=== PATIENT | male | born 1975 | race Caucasian/White ===

== ENCOUNTER → 2019-02-17 16:54 | Outpatient (CLI) | payer OTHER, SELFPAY ==
--- NOTE | 2019-02-17 17:05 | ECG_ITS ---
APPROVED REPORT Exam: Resting ECG HR:75 bpm ECG Measurements Heart Rate [address] 150 P 76 QRSd 78 QRS 69 QT 384 T 58 QTc 428 <Conclusion> Normal sinus rhythm Normal ECG Electronically signed by : Carlos Kulkarni, 02/18/2019 10:34:50
--- NOTE | 2019-02-17 17:07 | XR_ITS ---
PROCEDURE: XR CHEST 2V CLINICAL HISTORY: Tobacco use, smoker COMPARISON: No exams were available for comparison FINDINGS: The cardiomediastinal silhouette and pulmonary vascularity are within normal limits. COPD. There is blunting of the CP angle on the right. No lobar consolidation or collapse. There is a small opacity overlying the medial aspect of the right 6th rib possibly due to summation artifact or even overlying sclerotic lesion of the rib. There is some scarring in the lung bases. No acute bony abnormalities. IMPRESSION: COPD with no acute finding. Minimal nodularity along the medial aspect of the right 6th rib which could be due to summation artifact, sclerotic lesion of the rib, or developing nodule. Consider follow-up chest x-ray to confirm stability Dictated by: Amador Solano MD 02/18/2019 03:54 Electronically signed by Amador Solano MD in [place] 02/18/2019 03:54
[2019-02-17 17:25] LABS: Basophils # 0.1 K/mm3 (0-0.2); Basophils % 1.2 % (0.1-2.0); Eosinophils # 0.1 K/mm3 (0.0-0.4); Eosinophils % 1.5 % (0.1-12.0); Hematocrit 43.4 % (42.0-52.0); Lymphocytes # 2.1 K/mm3 (0.7-4.5); Lymphocytes % 25.6 % (10-50); Mean Corpuscular HGB Conc 32.3 g/dL (31.8-35.4); Mean Corpuscular Hemoglobin 28.6 pg (27.0-31.2); Mean Corpuscular Volume 88.5 fl (80-94); Mean Platelet Volume 7.7 fl (7.4-10.4); Monocytes # 0.6 K/mm3 (0.1-1.0); Monocytes % 6.8 % (1.7-9.3); Neutrophils # 5.3 K/mm3 (1.8-7.8); Neutrophils % 64.9 % (37.0-80.0); Platelet Count 267 K/mm3 (142-424); Red Cell Distribution Width 13.4 % (11.5-17.5); White Blood Count 8.2 K/mm3 (4.8-10.8)
[2019-02-17 20:05] LABS: Alanine Aminotransferase 13 U/L (12-78); Albumin Level 3.4 gm/dL (3.4-5.0); Albumin/Globulin Ratio 0.9 (1.1-1.8); Alkaline Phosphatase 98 U/L (46-116); Anion Gap 11.4 mEq/L (5-15); Aspartate Amino Transferase 17 U/L (15-37); Bilirubin,Total 0.3 mg/dL (0.2-1.0); Blood Urea Nitrogen 9 mg/dL (7-18); Calcium 8.6 mg/dL (8.5-10.1); Carbon Dioxide 32 mmol/L (21.0-32.0); Chloride 101 mmol/L (98-107); Creatinine,Serum 1.05 mg/dL (0.70-1.30); Estimated Glomerular Filt Rate 76 ml/min (>60); GFR (African American) 92 ML/MIN (>60); Globulin 3.6 gm/dl (1.3-3.2); Glucose 55 mg/dL (74-106); Potassium 4.4 mmoL/L (3.5-5.1); Sodium 140 mmol/L (136-145)
[2019-03-06 09:07] LABS: Nicotine 26.6
[2019-03-06 09:08] LABS: Cotinine 477.5
== END ==
PROVIDERS: Visit Provider Podiatrist
DX: Z01.818 Encounter for other preprocedural examination (principal); S92.002A Unspecified fracture of left calcaneus, initial encounter for closed fracture
CPT/HCPCS: 36415; 71046; 80053; 80323; 85025; 93005

== ENCOUNTER 2022-06-01 10:14 | Emergency (ER) | payer MEDICARE, OTHER, SELFPAY ==
--- NOTE | 2022-06-01 10:38 | XR_ITS ---
FINAL REPORT CLINICAL HISTORY: fall FINDINGS: 2 views of the left forearm were obtained. There is an impacted fracture of the distal radial metaphysis. There is dorsal angulation of the distal fracture fragment. The joint spaces are intact. There is a small foreign body along the radial aspect of the wrist measuring 2 mm. IMPRESSION: Impacted distal radius fracture. Reviewed, Interpreted and Dictated by Ankush Foster III, MD Transcribed by Tim Perez Authenticated and . [facility]
--- NOTE | 2022-06-01 10:38 | XR_ITS ---
FINAL REPORT CLINICAL HISTORY: fall FINDINGS: Three views of the left wrist were obtained. There is an impacted fracture of the distal radial metaphysis. There is dorsal angulation of the distal fracture fragment. There is a nondisplaced fracture of the ulnar styloid process. The joint spaces are intact. There is a small foreign body along the radial aspect of the wrist measuring 2 mm. There is soft tissue swelling of the wrist. IMPRESSION: Distal radius and ulnar styloid process fractures. Reviewed, Interpreted and Dictated by Ankush Foster III, MD Transcribed by Tim Perez Authenticated and [facility]
--- NOTE | 2022-06-01 10:38 | XR_ITS ---
FINAL REPORT CLINICAL HISTORY: fall FINDINGS: Three views of the left hand were obtained. There is an impacted fracture of the distal radial metaphysis. There is dorsal angulation of the distal fracture fragment. Fracture of the ulnar styloid process. The joint spaces are intact. There is a small foreign body along the radial aspect of the wrist measuring 2 mm. There is soft tissue swelling about the wrist. IMPRESSION: Fractures of the distal radius and ulnar styloid process. Small foreign body along the radial aspect of the wrist. Reviewed, Interpreted and Dictated by Ankush Foster III, MD Transcribed by Tim Perez Authenticated and [facility]
--- NOTE | 2022-06-01 10:38 | XR_ITS ---
FINAL REPORT CLINICAL HISTORY: fall FINDINGS: LEFT ELBOW 3 views were obtained. There is no acute fracture or dislocation. There is no joint effusion. The joint spaces are intact. There is no soft tissue abnormality. IMPRESSION: No acute process. Reviewed, Interpreted and Dictated by Ankush Foster III, MD Transcribed by Tim Perez Authenticated and [facility]
[2022-06-01 11:23] VITALS: BP 138/65; PULSE 82; RESP 16; TEMP 36.6; O2SAT 97; BMI 21.5
--- NOTE | 2022-06-01 11:48 | EXP.UTC ---
Discharge Plan Disposition Patient Disposition: Home, Self-Care Condition: Good Prescriptions Prescriptions: New ibuprofen 600 mg tablet 600 mg PO Q6HP PRN (Reason: Moderate Pain) Qty: 20 0RF No Action tramadol 50 mg tablet 50 mg PO Q6H PRN (Reason: pain) Qty: 30 0RF fluticasone furoate-vilanterol 200-25 mcg/dose blister with device 2 puffs INHALATION DAILY Qty: 60 umeclidinium 62.5 mcg/actuation blister with device 2 puffs INHALATION DAILY Qty: 30 albuterol sulfate 90 mcg/actuation aerosol powdr breath activated 1 inh INHALATION Q4-6H PRN (Reason: copd) ibuprofen 800 mg tablet 800 mg PO BID Qty: 60 3RF methadone 5 mg tablet 75 mg PO DAILY naproxen 500 mg tablet 500 mg PO BID Referrals Follow up/Referrals: Foster Valenzuela DO [Staff Physician] - See instructions (Call office for appointment on Sat) Provider,Referral, MD [Primary Care Provider] - See instructions Activity Restrictions/Add. Instructions Additional Instructions/Restrictions: You was given Toradol injection in the [facility] today do not take any Ibuprofen or Motrin for the next 8 hours *RICE, Rest the extremity, Ice 15-20 minutes 3-4 times daily, Compress- wear the alberto wrap as discussed as much as possible to help reduce swelling and pain, Elevate the extremity when at rest *Orthoglass splint with Alberto wrap is for support and help control swelling, Be sure that is not to tight but not to loose either *Elevate when resting? *Ibuprofen 600 every 6-8 hours as needed for pain an inflammation. If need something more can take Tylenol in between doses of Ibuprofen to help Call Dr Samson office for appointment on Sat for further treatment and evaluation Make sure to prop area up on pillows above the level of the heart to help reduce swelling Clinical Impressions Clinical Impression: Distal radius fracture, left Qualifiers: Encounter type: initial encounter Fracture type: closed Fracture morphology: unspecified fracture morphology Qualified Code(s): S52.502A - Unspecified fracture of the lower end of left radius, initial encounter for closed fracture Instructions Patient Instructions: Wrist Fracture, How To Perform RICE (Rest, Ice, Compress, Elevate), Ibuprofen Discharge ED Provider: Deepali Carrion [facility] [place] HPI General Stated complaint: [id number], Left wrist pain Mode of Arrival: Ambulatory Source of Information: Patient Limitations: No Limitations Time Seen by Provider: 06/01/22 11:48 Description of Symptoms (Recalled from Triage Doc. by RN): pt here with c/o left arm swelling. pt had a fall last night and now has left arm awelling and pain. HEENT Symptoms (Recalled from RN notes): No Resp Symptoms (Recalled from RN notes): No Skin Symptoms (Recalled from RN notes): No MS Symptoms (Recalled from RN notes): Yes Functional Status (Recalled from RN notes): n/a History of Present Illness Provider Complaint: Patient states that he was outside last night when he slipped and fell and stuck out his left arm to catch himself from falling and felt a pop State that since then he has been having pain and swelling States he took some Ibuprofen last night and it did help a little with pain today he couldnt move his wrist without pain so he came in Related Data Home Medications Medication Instructions Recorded Confirmed albuterol sulfate 90 mcg/actuation 1 inh inhalation Q4-6H PRN copd 02/10/19 06/01/22 breath activated powder inhaler fluticasone furoate 200 2 puffs inhalation DAILY COPD #60 02/10/19 06/01/22 mcg-vilanterol 25 mcg/dose ea inhalation powder umeclidinium 62.5 mcg/actuation 2 puffs inhalation DAILY COPD #30 02/10/19 06/01/22 blister powder for inhalation ea methadone 5 mg tablet 75 mg PO DAILY Pain 02/17/19 06/01/22 naproxen 500 mg tablet 500 mg PO BID Pain 06/01/22 06/01/22 Previous Rx's Medication Instructions Recorded ibuprofen 800 mg tablet 800 mg PO BID pain, mild #60 tabs 02/10/19 vinicius
[2022-06-01 13:15] VITALS: BP 138/65; PULSE 82; RESP 16; TEMP 36.6
== END 2022-06-01 13:28 | disposition home or self-care (01) ==
PROVIDERS: Emergency Provider Nurse Practitioner
DX: S52.502A Unspecified fracture of the lower end of left radius, initial encounter for closed fracture (principal); W19.XXXA Unspecified fall, initial encounter
CPT/HCPCS: G0463; 29125; 73080; 73090; 73110; 73130; 99212

== ENCOUNTER 2024-07-08 14:35 | Emergency (ER) | payer OTHER, MEDICARE, SELFPAY ==
--- NOTE | 2024-07-08 14:37 | ED_ITS ---
Discharge Plan Disposition Patient Disposition: Home, Self-Care Condition: Good Prescriptions Prescriptions: New doxycycline hyclate 100 mg capsule 100 mg PO BID 10 Days Qty: 20 0RF prednisone 50 mg tablet 50 mg PO DAILY 5 Days Qty: 5 0RF No Action methadone 10 mg Tablet See Rx Instructions .ROUTE .COMPLEX Rx Instructions: unsure how much, given at the clinic albuterol sulfate 90 mcg/actuation HFA aerosol inhaler See Rx Instructions .ROUTE .COMPLEX Rx Instructions: as ordered Trelegy Ellipta 100-62.5-25 mcg blister with device See Rx Instructions .ROUTE .COMPLEX Rx Instructions: as ordered Referrals Follow up/Referrals: Provider,MD Arvind [Primary Care Provider] - See instructions Re Orr MD [Physician] - See instructions Activity Restrictions/Add. Instructions Additional Instructions/Restrictions: I have sent medication to your pharmacy. Please take your antibiotic till it is gone. I have referred you to pulmonology. Please call in the morning to make your appointment. If you have continued new or worsening signs or symptoms follow-up with your PCP return to the ER as needed. Clinical Impressions Clinical Impression: Influenza A, Acute exacerbation of chronic obstructive pulmonary disease Instructions Patient Instructions: DI for Chronic Obstructive Pulmonary Disease, DI for Influenza -- Adult Print Language Print Language: Luxembourger Discharge ED Provider: Mitul Tidwell General Adult HPI <JOVANNA Merrill - Last Filed: 07/08/24 18:12> General Chief complaint: Shortness of Breath/Dyspnea Stated complaint: body ache soa fever diarrhea Time Seen by Provider: 07/08/24 14:37 History of Present Illness HPI narrative: Patient presents for evaluation of dyspnea. Patient states that he has had 5 days of worsening dyspnea. He is a pack-a-day smoker and does have COPD but is not on any home oxygen. He does have a home nebulizer. He and his father are both sick about the same time and have similar symptoms. Denies any chest pain nausea vomiting diarrhea hemoptysis hematochezia melena hematemesis. He does report a cough that is nonproductive. Related Data Home Medications ?Medication ?Instructions ?Recorded ?Confirmed albuterol sulfate 90 mcg/actuation See Rx Instructions .Route .COMPLEX 07/08/24 07/08/24 aerosol inhaler fluticasone fur. 100 mcg-umeclid See Rx Instructions .Route .COMPLEX 07/08/24 07/08/24 62.5 mcg-vilant 25 mcg inhalat.powder (Trelegy Ellipta) methadone 10 mg tablet See Rx Instructions .Route .COMPLEX 07/08/24 07/08/24 Previous Rx's ?Medication ?Instructions ?Recorded doxycycline hyclate 100 mg capsule 100 mg PO BID 10 days #20 caps 07/08/24 prednisone 50 mg tablet 50 mg PO DAILY 5 days #5 tabs 07/08/24 Allergies Allergy/AdvReac Type Severity Reaction Status Date / Time No Known Allergies Allergy Verified 07/08/24 15:26 PFSH <JOVANNA Merrill - Last Filed: 07/08/24 18:12> [facility] Disclaimer: The information contained in this section may have been updated after the patient was seen, as this information can be updated by other users. Social History Smoking Status: Heavy tobacco smoker tobacco type: cigarettes packs per day: 1 second hand exposure: No alcohol intake: never substance use type: former substance user, opiates, painkillers and prescription drug current occupational status: other Travel in the last 8 weeks: None household members: significant other housing: house caffeine: Yes Have you lived/traveled outside US in past 30 days?: No Contact w/someone who lives/traveled outside US past 30 days?: No Exposure to someone with infectious disease in past 14 days?: No Do you have a fever (greater than 100.4 F or 38 C)?: No Have you tested positive for COVID-19: No Exposed to someone with COVID-19 in past 14 days?: No Do you have a sore throat?: No Do you have a cough?: Yes Do you have any weakness?: No Do you have any diarrhea?: Yes Are you experiencing any unusual bleeding?: No Do you have any muscle aches/pain?: No Do you have any abdominal pain?: No Are you experiencing loss of taste or smell?: No Other Medical History Have you received the Flu Vaccine for this season: Yes Have you received the Pneumonia Vaccine: No <JOVANNA Merrill - Last Filed: 07/08/24 18:12> ROS Obtained: Yes Systems reviewed as appropriate & no additional complaints except as documented Physical Exam <JOVANNA Merrill - Last Filed: 07/08/24 18:12> General General appearance: alert and in no apparent distress Respiratory Respiratory exam: Present wheezes and prolonged expiratory phase; Absent normal lung sounds bilaterally, respiratory distress or accessory muscle use Cardiovascular Cardiovascular exam: Present regular rate Neurological Exam Neurological exam: Present alert and oriented X3 Medical Decision Making <JOVANNA eMrrill - Last Filed: 07/08/24 18:12> Medical Records Medical records reviewed: Yes I reviewed the patient's medical records. Screening: Per USPSTF and CDC recommendations, given the prevalence of disease in our region, it is our hospital?s policy to screen for HIV and viral Hepatitis for all patients aged 18 and over and those with ongoing risk factors. Willie Inquiry Pt receiving controlled substance: No Vital Signs: 07/08/24 15:11 07/08/24 16:50 07/08/24 16:52 Temperature 98.1 F 98.1 F 98.1 F Temperature Source Oral Oral Pulse Rate 90 94 H Pulse Rate [Left] 83 Respiratory Rate 18 18 16 Blood Pressure 122/86 122/86 Blood Pressure [Right Arm] 134/90 Blood Pressure Mean [Right Arm] 104 Blood Pressure Source Automatic Cuff Blood Pressure Source [Right Arm] Automatic Cuff Blood Pressure Position Sitting Blood Pressure Position [Right Arm] Sitting 02 Sat by Pulse Oximetry 97 Oxygen Delivery Method Room Air Room Air Room Air Lab Data Lab results reviewed: Yes I reviewed the patient's lab results. Lab Results 07/08/24 14:41: SARS-CoV-2 (PCR) Not detected, Influenza A Untype (PCR) Detected A, Influenza Type B (PCR) Not detected 07/08/24 15:20: WBC 8.5, RBC 4.68, Hgb 13.9 L, Hct 40.0 L, MCV 85.5, MCH 29.7, MCHC 34.8, RDW 12.0, Plt Count 175, MPV 10.5 H, Neut % (Auto) 73.6, Lymph % (Auto) 18.9, Love % (Auto) 6.6, Eos % (Auto) 0.1, Baso % (Auto) 0.4, Neut # (Auto) 6.3, Lymph # (Auto) 1.6, Love # (Auto) 0.6, Eos # (Auto) 0.0, Baso # (Auto) 0.0, PT 10.3, INR 0.93, Sodium 137, Potassium 3.2 L, Chloride 94 L, C arbon Dioxide 38 H, Anion Gap 8.2, BUN 6 L, Creatinine 0.70, Estimated Creat Clear 128, Estimated GFR 119, Est GFR ( Amer) 144, Glucose 95, Calcium 8.5, Magnesium 2.2, Total Bilirubin 0.4, AST 48, ALT 29, Alkaline Phosphatase 85, Troponin I < 0.01, NT-Pro-B Natriuret Pep 224 H, Total Protein 7.4, Albumin 4.0, Globulin 3.4 H, Albumin/Globulin Ratio 1.2, Procalcitonin 0.250, HCV Ab AYDEN w/Rflx PCR Qn Negative, HIV Ag/Ab Combo Qual Negative 07/08/24 15:25: VBG pH 7.38, VBG pCO2 56.4 H, VBG pO2 27.9 L, VBG HCO3 32.8 H, V BG Total CO2 34.5 H, VBG O2 Saturation 59.8, VBG Base Excess 7.7 H, VBG Lactic Acid 0.9 07/08/24 15:20 07/08/24 15:20 Orders (Tests/Meds): ED MEDICATIONS Discontinued Medications Generic Name Dose Route Start Last Admin Trade Name Jonatanq PRN Reason Stop Dose Admin Albuterol/Ipratropium 3 ml 07/08/24 14:47 07/08/24 16:52 Ipratropium/Albuterol 3 Ml [facility] 07/08/24 14:48 Not Given ONCE ONE Albuterol/Ipratropium 6 ml 07/08/24 15:34 07/08/24 16:02 Ipratropium/Albuterol 3 Ml [facility] 07/08/24 15:35 6 ml ONCE ONE Administration Dexamethasone Sodium Phosphate 10 mg 07/08/24 14:47 07/08/24 16:01 Dexamethasone 4mg/Ml 5ml Mdv IV 07/08/24 14:48 10 mg ONCE ONE Administration Magnesium Sulfate 2 gm in 50 mls @ 50 mls/hr 07/08/24 15:08 07/08/24 15:58 Magnesium Sulfate 2gm/50ml Premix IV 07/08/24 16:07 50 mls/hr ONCE ONE Administration Ceftriaxone Sodium 2 gm/ 100 mls @ 200 mls/hr 07/08/24 15:34 07/08/24 15:54 Sodium Chloride IV 07/08/24 16:03 200 mls/hr ONCE ONE Administration Azithromycin 500 mg/ Sodium 250 mls @ 250 mls/hr 07/08/24 15:34 07/08/24 16:20 Chloride IV 07/08/24 15:35 250 mls/hr ONCE ONE Administration ORDERS Category Date Time Status Chest XR 2 view (NOT portable) [XR chest 2V] Stat Exams 07/08/24 14:47 Completed BNP [NT Pro Brain Natriuretic Pep.] Stat Lab 07/08/24 15:20 Completed CBC w/Auto Diff [Complete Blood Count Auto Diff] Stat Lab 07/08/24 15:20 Completed CMP [Comprehensive Metabolic Panel] Stat Lab 07/08/24 15:20 Completed HIV Combo Stat Lab 07/08/24 15:20 Completed Hepatitis C Ab Qual. W/ RFX Stat Lab 07/08/24 15:20 Completed INR [Prothrombin Time INR] Stat Lab 07/08/24 15:20 Completed Magnesium Stat Lab 07/08/24 15:20 Completed Procalcitonin Stat Lab 07/08/24 15:20 Completed Rapid PCR Covid and Flu A/B Stat Lab 07/08/24 14:41 Completed Trop I [Troponin I] Stat Lab 07/08/24 15:20 Completed Troponin I Q3H Lab 07/08/24 21:00 Ordered VBG [Venous Blood Gas] Stat RT 07/08/24 15:25 Completed Medical Decision Narrative: In summary patient is a 49-year-old male who presents to the emergency department for evaluation of dyspnea. Patient is initially normotensive at 134/90 with a pulse of 83 normal sinus rhythm on the bedside monitor breathing 18 times a minute satting at 97% on room air upon arrival, the temperature of 98.1. Physical exam is remarkable for pursed lip breathing and prolonged expiratory phase. Patient has no accessory muscle use and auscultation of breath sounds reveals end-expiratory wheezes in all 4 holguin but breath sounds heard to bases.. Differential diagnosis includes COPD exacerbation versus viral or bacterial respiratory tract infection. Initial workup will be conducted with hematologic labs respiratory swabs plain film chest x-ray. Initial interventions include Decadron DuoNeb IV magnesium continuous cardiac monitoring and pulse oximetry. Initial workup reviewed by me shows that his hematologic labs are nonactionable respiratory swab is positive for flu A and my informal interpretation of his plain film chest x-ray shows no acute processes and chronic changes associated with COPD prior to radiology read. Upon repeat evaluation patient had significant improvement in his respiratory subjective symptoms and is able to ambulate without dyspnea. Given this had an interactive discussion with the patient about being admitted versus discharge and patient is comfortable via patient directed decision making with going home with a prescription for doxycycline and steroids and strict return precautions. Given that I have sent a prescription to the patient's pharmacy and referred him to pulmonology for ongoing management and care of his COPD. He is out of the window to treat for influenza <Mitul Tidwell MD - Last Filed: 07/08/24 18:46> Vital Signs: 07/08/24 15:11 07/08/24 16:50 07/08/24 16:52 Temperature 98.1 F 98.1 F 98.1 F Temperature Source Oral Oral Pulse Rate 90 94 H Pulse Rate [Left] 83 Respiratory Rate 18 18 16 Blood Pressure 122/86 122/86 Blood Pressure [Right Arm] 134/90 Blood Pressure Mean [Right Arm] 104 Blood Pressure Source Automatic Cuff Blood Pressure Source [Right Arm] Automatic Cuff Blood Pressure Position Sitting Blood Pressure Position [Right Arm] Sitting 02 Sat by Pulse Oximetry 97 Oxygen Delivery Method Room Air Room Air Room Air Lab Data Lab Results 07/08/24 14:41: SARS-CoV-2 (PCR) Not detected, Influenza A Untype (PCR) Detected A, Influenza Type B (PCR) Not detected 07/08/24 15:20: WBC 8.5, RBC 4.68, Hgb 13.9 L, Hct 40.0 L, MCV 85.5, MCH 29.7, MCHC 34.8, RDW 12.0, Plt Count 175, MPV 10.5 H, Neut % (Auto) 73.6, Lymph % (Auto) 18.9, Love % (Auto) 6.6, Eos % (Auto) 0.1, Baso % (Auto) 0.4, Neut # (Auto) 6.3, Lymph # (Auto) 1.6, Love # (Auto) 0.6, Eos # (Auto) 0.0, Baso # (Auto) 0.0, PT 10.3, INR 0.93, Sodium 137, Potassium 3.2 L, Chloride 94 L, C arbon Dioxide 38 H, Anion Gap 8.2, BUN 6 L, Creatinine 0.70, Estimated Creat Clear 128, Estimated GFR 119, Est GFR ( Amer) 144, Glucose 95, Calcium 8.5, Magnesium 2.2, Total Bilirubin 0.4, AST 48, ALT 29, Alkaline Phosphatase 85, Troponin I < 0.01, NT-Pro-B Natriuret Pep 224 H, Total Protein 7.4, Albumin 4.0, Globulin 3.4 H, Albumin/Globulin Ratio 1.2, Procalcitonin 0.250, HCV Ab AYDEN w/Rflx PCR Qn Negative, HIV Ag/Ab Combo Qual Negative 07/08/24 15:25: VBG pH 7.38, VBG pCO2 56.4 H, VBG pO2 27.9 L, VBG HCO3 32.8 H, V BG Total CO2 34.5 H, VBG O2 Saturation 59.8, VBG Base Excess 7.7 H, VBG Lactic Acid 0.9 Orders (Tests/Meds): ED MEDICATIONS Discontinued Medications Generic Name Dose Route Start Last Admin Trade Name Freq PRN Reason Stop Dose Admin Albuterol/Ipratropium 3 ml 07/08/24 14:47 07/08/24 16:52 Ipratropium/Albuterol 3 Ml [facility] 07/08/24 14:48 Not Given ONCE ONE Albuterol/Ipratropium 6 ml 07/08/24 15:34 07/08/24 16:02 Ipratropium/Albuterol 3 Ml [facility] 07/08/24 15:35 6 ml ONCE ONE Administration Dexamethasone Sodium Phosphate 10 mg 07/08/24 14:47 07/08/24 16:01 Dexamethasone 4mg/Ml 5ml Mdv IV 07/08/24 14:48 10 mg ONCE ONE Administration Magnesium Sulfate 2 gm in 50 mls @ 50 mls/hr 07/08/24 15:08 07/08/24 15:58 Magnesium Sulfate 2gm/50ml Premix IV 07/08/24 16:07 50 mls/hr ONCE ONE Administration Ceftriaxone Sodium 2 gm/ 100 mls @ 200 mls/hr 07/08/24 15:34 07/08/24 15:54 Sodium Chloride IV 07/08/24 16:03 200 mls/hr ONCE ONE Administration Azithromycin 500 mg/ Sodium 250 mls @ 250 mls/hr 07/08/24 15:34 07/08/24 16:20 Chloride IV 07/08/24 15:35 250 mls/hr ONCE ONE Administration ORDERS Category Date Time Status Chest XR 2 view (NOT portable) [XR chest 2V] Stat Exams 07/08/24 14:47 Completed BNP [NT Pro Brain Natriuretic Pep.] Stat Lab 07/08/24 15:20 Completed CBC w/Auto Diff [Complete Blood Count Auto Diff] Stat Lab 07/08/24 15:20 Completed CMP [Comprehensive Metabolic Panel] Stat Lab 07/08/24 15:20 Completed HIV Combo Stat Lab 07/08/24 15:20 Completed Hepatitis C Ab Qual. W/ RFX Stat Lab 07/08/24 15:20 Completed INR [Prothrombin Time INR] Stat Lab 07/08/24 15:20 Completed Magnesium Stat Lab 07/08/24 15:20 Completed Procalcitonin Stat Lab 07/08/24 15:20 Completed Rapid PCR Covid and Flu A/B Stat Lab 07/08/24 14:41 Completed Trop I [Troponin I] Stat Lab 07/08/24 15:20 Completed Troponin I Q3H Lab 07/08/24 21:00 Ordered VBG [Venous Blood Gas] Stat RT 07/08/24 15:25 Completed Medical Decision Narrative: In summary patient is a 49-year-old male who presents to the emergency department for evaluation of dyspnea. Patient is initially normotensive at 134/90 with a pulse of 83 normal sinus rhythm on the bedside monitor breathing 18 times a minute satting at 97% on room air upon arrival, the temperature of 98.1. Physical exam is remarkable for pursed lip breathing and prolonged expiratory phase. Patient has no accessory muscle use and auscultation of breath sounds reveals end-expiratory wheezes in all 4 holguin but breath sounds heard to bases.. Differential diagnosis includes COPD exacerbation versus viral or bacterial respiratory tract infection. Initial workup will be conducted with hematologic labs respiratory swabs plain film chest x-ray. Initial interventions include Decadron DuoNeb IV magnesium continuous cardiac monitoring and pulse oximetry. Initial workup reviewed by me shows that his hematologic labs are nonactionable respiratory swab is positive for flu A and my informal interpretation of his plain film chest x-ray shows no acute processes and chronic changes associated with COPD prior to radiology read. Upon repeat evaluation patient had significant improvement in his respiratory subjective symptoms and is able to ambulate without dyspnea. Given this had an interactive discussion with the patient about being admitted versus discharge and patient is comfortable via patient directed decision making with going home with a prescription for doxycycline and steroids and strict return precautions. Given that I have sent a prescription to the patient's pharmacy and referred him to pulmonology for ongoing management and care of his COPD. He is out of the window to treat for influenza I was consulted by the [facility], and we discussed the complexity of the problems being addressed. I approved the treatment and management plan for this patient's care in the Emergency Department, thus performing a substantive portion of the medical decision making. Call your family doctor to establish care for this visit to the emergency department and schedule follow-up within 48 hours to ensure improvement. If you have any worsening of your condition or any other concerning signs or symptoms, return to the emergency department or your primary care doctor for further evaluation. Mitul Tidwell MD Critical Care <JOVANNA Merrill - Last Filed: 07/08/24 18:12> Critical Care Time Critical Care Time: Yes Attestation: On 07/08/24, the high probability of a clinically significant, sudden or life threatening deterioration of the following system(s) required my full and direct attention, intervention and personal management. The time I documented below is in addition to time spent performing reported procedures but includes the following listed in this critical care notation. Total Time Total Critical Care Time: 35
--- NOTE | 2024-07-08 14:47 | XR_ITS ---
FINAL REPORT CLINICAL HISTORY: Dyspnea COMPARISON: 02/17/2019 FINDINGS: 2 views of the chest were obtained . The heart is normal in size. The mediastinum is within normal limits. The lungs are hyperinflated. There is flattening of the hemidiaphragms. Chronic changes are seen at the lung bases. There is no pneumothorax. Osseous structures are unremarkable. IMPRESSION: No acute cardiopulmonary process. Reviewed, Interpreted and Dictated by Kalyan Kiser MD Transcribed by Sariah Guzman Authenticated and [facility]
[2024-07-08 14:50] LABS: Coronavirus 19, PCR Not Detected (NotDetected); Influenza B, PCR Not Detected (NotDetected)
[2024-07-08 15:11] VITALS: BP 134/90; PULSE 83; RESP 18; TEMP 36.7; O2SAT 97; BMI 22.9
--- NOTE | 2024-07-08 15:19 | PC.NURSE ---
ROUNDED ON THE PT. THE PT OVICES THAT HE DOES NOT NEED ANYTHING AT THIS TIME. CALL LIGHT IS WITHIN REACH OF THE PT.
--- NOTE | 2024-07-08 15:25 | PC.NURSE ---
I notified resp that there is a green top in the lab for a VBG
[2024-07-08 15:27] LABS: Lactate Venous 0.9 mmol/L (0.4-2.0); VBG Base Excess 7.7 mmol/L (-2.4-2.3); VBG HCO3 32.8 mmol/L (23-30); VBG Oxygen Saturation 59.8 % (50-70); VBG PCO2 56.4 mmol/L (35-51); VBG PH 7.38 mmol/L (7.31-7.41); VBG PO2 27.9 mmol/L (28-40); VBG Total CO2 34.5 mmol/L (23-27)
[2024-07-08 15:30] LABS: Basophils % 0.4 % (0.1-2.0); Eosinophils % 0.1 % (0.1-12.0); Hemoglobin 13.9 g/dL (14.1-18.0); Lymphocytes # 1.6 K/mm3 (0.7-4.5); Lymphocytes % 18.9 % (10-50); Mean Corpuscular HGB Conc 34.8 g/dL (31.8-35.4); Mean Corpuscular Hemoglobin 29.7 pg (27.0-31.2); Mean Corpuscular Volume 85.5 fl (80-94); Mean Platelet Volume 10.5 fl (7.4-10.4); Monocytes # 0.6 K/mm3 (0.1-1.0); Monocytes % 6.6 % (1.7-9.3); Neutrophils # 6.3 K/mm3 (1.8-7.8); Neutrophils % 73.6 % (37.0-80.0); Platelet Count 175 K/mm3 (142-424); Red Blood Count 4.68 M/mm3 (4.60-6.20); White Blood Count 8.5 K/mm3 (4.8-10.8)
[2024-07-08 15:46] LABS: INR 0.93 (0.9-1.1); Prothrombin Time 10.3 seconds (9.2-12.1)
[2024-07-08 15:52] LABS: Alanine Aminotransferase 29 U/L (12-78); Albumin/Globulin Ratio 1.2 (1.1-1.8); Alkaline Phosphatase 85 U/L (38-126); Anion Gap 8.2 mEq/L (5-15); Aspartate Amino Transferase 48 U/L (17-59); Bilirubin,Total 0.4 mg/dl (0.2-1.3); Blood Urea Nitrogen 6 mg/dl (9-20); Calcium 8.5 mg/dl (8.4-10.2); Carbon Dioxide 38 mmol/L (22.0-30.0); Chloride 94 mmol/L (98-107); Creatinine Clearance Estimated 128 mL/min (50-200); Estimated Glomerular Filt Rate 119 ml/min (>60); GFR (African American) 144 ML/MIN (>60); Globulin 3.4 g/dL (1.3-3.2); Glucose 95 mg/dl (74-100); Magnesium 2.2 mg/dl (1.6-2.3); Potassium 3.2 mmoL/L (3.5-5.1); Sodium 137 mmol/L (136-145); Total Protein,Serum 7.4 g/dl (6.3-8.2)
[2024-07-08 15:54] LABS: Influenza A, PCR Detected (NotDetected)
[2024-07-08] MEDS: CEFTRIAXONE SODIUM 2 GM in 0.9 % SODIUM CHLORIDE 100 ML IV (15:54)
[2024-07-08] MEDS: MAGNESIUM SULFATE IN WATER 2 GM/50 ML PIGGYBACK IV (15:58)
[2024-07-08] MEDS: DEXAMETHASONE 4MG/ML 5ML MDV 10 MG IV (16:01)
[2024-07-08] MEDS: IPRATROPIUM/ALBUTEROL 3 ML NEB 6 ML IH (16:02)
[2024-07-08 16:04] LABS: NT Pro Brain Natriuretic Pep. 224 pg/mL (0-125); Troponin I < 0.01 ng/ml (0.00-0.034)
[2024-07-08] MEDS: AZITHROMYCIN 500 MG in 0.9 % SODIUM CHLORIDE 250 ML 250 MG IV (16:20)
[2024-07-08 16:50] VITALS: BP 122/86; PULSE 90; RESP 18; TEMP 36.7; O2SAT 95
[2024-07-08 16:52] VITALS: BP 122/86; PULSE 94; RESP 16; TEMP 36.7; O2SAT 95
[2024-07-08 17:03] LABS: HIV Combo NEGATIVE (Negative)
[2024-07-08 17:12] LABS: Hepatitis C Ab Qual. W/ RFX NEGATIVE (Negative)
== END 2024-07-08 16:54 | disposition home or self-care (01) ==
PROVIDERS: Physician Assistant; Emergency Provider Emergency Medicine
DX: J10.1 Influenza due to other identified influenza virus with other respiratory manifestations (principal); J44.1 Chronic obstructive pulmonary disease with (acute) exacerbation; R50.9 Fever, unspecified; R06.00 Dyspnea, unspecified; R05.9 Cough, unspecified; Z72.0 Tobacco use
CPT/HCPCS: 71046; 80053; 82803; 83735; 83880; 84145; 84484; 85025; 85610; 86803; 87389; 87636; 96365; 96367; 96374; 99291; J0456; J0696; J1100; J3475; J7050; J7620

== ENCOUNTER 2024-11-15 12:32 | Observation (INO) | payer MEDICARE, SELFPAY ==
[2024-11-15] VITALS (10 sets, daily range): BP systolic 93–132; BP diastolic 63–106; PULSE 80–110; RESP 14–20; TEMP 36.8–37.1; O2SAT 90–100; BMI 18.6; BMI 19.0
--- NOTE | 2024-11-15 12:38 | XR_ITS ---
PROCEDURE INFORMATION: Exam: XR Chest Exam date and time: 11/15/2024 12:47 PM Age: 49 years old Clinical indication: Shortness of breath; Additional info: SOA, cough TECHNIQUE: Imaging protocol: Radiologic exam of the chest. Views: 1 view. COMPARISON: CR XR CHEST 2V 07/08/2024 2:46 PM FINDINGS: Lungs: There is COPD with upper lobe emphysematous changes redemonstrated. No acute infiltrates overt CHF. Pleural spaces: Unremarkable. No pleural effusion. No pneumothorax. Heart/Mediastinum: Unremarkable. No cardiomegaly. Bones/joints: No acute bony abnormalities detected. IMPRESSION: COPD. No active disease.
--- OUTSIDE RECORDS SUMMARY | 2024-11-15 12:39 | XMS_ITS | Encounter Summary ---
Author Organization Healthcare Address [address] [place] [address] Care Team Providers Care Web Development Instructor Name Role Phone Pcp, No Primary Care Provider Unavailabl e Reason for Visit * Reason Onset Date Comments Medication Assistance Program 09/03/2024 Encounter Details Date Type Department Care Team (Late st Contact Info) Description 09/03/2024 Telephone [facility] [address] [place] [address] Feli Wong, PharmD Medication Assistance Program Social History Tobacco Use Types Packs/Day Years Used Date Smoking Tobacco: Every Day Cigarettes Smokeless Tobacco: Never Alcohol Use Standard Drinks/Week Comments Not Currently 0 (1 standard drink = 0.6 oz pur e alcohol) PHQ-2 Answer Date Recorded Patient Health Questionnaire-2 Score 0 08/25/2024 PHQ-9 Answer Date Recorded Patient Health Questionnaire-9 Score 0 08/25/2024 Sex and Gender Information Value Date Recorded Sex Assigned at Not on file Legal Sex Male 8:15 PM EDT Gender Identity Not on file Sexual Orientation Not on file documented as of this encounter Miscellaneous Notes * Clinician Note - Feli Wong, PharmD - 09/03/2024 3:33 PM EDT [facility] Request Medication(s): Spiriva Respimat and Advair HFA Copay Amount: $390.10 and $47 Date to be Shipped/Dispensed: 09/09/2024 Employee Name Feli Wong PharmD Filling Pharmacy: [facility] [address] [place] [phone] Preferred Application Method: MyChart I attest that there are no copay cards, grants or other copay assistance options available for thispatient. documented in this encounter Plan of Treatment Upcoming Encounters Date Type Department Care Team (Late st Contact Info) Description 12/01/2024 12:50 PM EDT Appointment [facility] [address] [place] [address] 12/01/2024 1:40 PM EDT Office Visit [facility] [address] [place] [address] Yoana Stuart S, HISTORY INSTRUCTOR [address] [place] [address] documented as of this encounter Visit Diagnoses Not on filedocumented in this encounter Additional Health Concerns Assessment Noted Time PHQ-9 Depression Total Score: 0 08/26/19 12:28 PM EDT A fall risk assessment has been complete d for the patient 08/25/2024 12:30 PM EDT A Body Mass Index follow-up plan has been documented for the patient 08/25/2024 1:33 PM EDT documented as of this encounter Care Teams Web Development Instructor Relationship Specialty Start Date End Date Pcp, [facility] [address] [place] [address] PCP - General Family Medicine 06/21/22 documented as of this encounter
--- OUTSIDE RECORDS SUMMARY | 2024-11-15 12:39 | XMS_ITS | Clinical Summary ---
Author Organization [facility] Address [address] [place] [address] Care Team Providers Care Cell Stripper Final Name Role Phone Pcp, No Primary Care Provider Unavailabl e Allergies No known active allergies Medications Ventolin HFA 108 (90 Base) MCG/ACT inhaler 3 Active ibuprofen 600 MG tablet TAKE 1 TABLET BY MOUTH EVERY 6 HOURS NEEDED FOR MODERATE PAIN 2 Active fluticasone-salm eterol (Advair HFA) 230-21 MCG/ACT inhalerIndicatio ns:Asthma-COPD overlap syndrome (CMS/HCC) Inhale 2 puffs 2 (two) times a day. Rinse mouth with water after use to reduce aftertaste and incidence of candidiasis. Do not swallow. Use with spacer 12 g 11 5 Active Tiotropium [place] Monohydrate (Spiriva Respimat) 2.5 MCG/ACT inhalerIndicatio ns:Asthma-COPD overlap syndrome (CMS/HCC) Inhale 2 puffs daily. 4 g 11 5 Active Active Problems No known active problems Encounters Date Type Department Care Team Description 09/03/2024 Telephone [facility] [address] [place] [address] Feli Wong, PharmD Medication Assistance Program 08/26/2024 Refill [facility] [address], [address] [place] [address] Rodrick Ross, PharmD Asthma-COPD overlap syndrome (CMS/HCC) (Primary Dx) 08/25/2024 12:40 PM EDT Office Visit [facility] [address], [address] [place] [address] Yoana Stuart APRN Asthma-COPD overlap syndrome (CMS/HCC) (Primary Dx); Chronic obstructive pulmonary disease, unspecified COPD type (CMS/HCC); Dyspnea on exertion; Current smoker; History of substance abuse (CMS/HCC) 08/25/2024 11:00 AM EDT Ancillary Procedure [facility] [address], [address] [place] [phone] Chronic obstructive pulmonary disease, unspecified COPD type (CMS/HCC) 08/25/2024 Telephone [facility] 0 [facility], [address] [place] [phone] Yoana Stuart APRN Prior-authorization /insurance Verification; Financial Assistance 08/25/2024 Travel from Last 3 Months Immunizations Immunization Administration Dates Next Due Influenza, injectable, quadrivalent, preservativ e free 02/29/2020,06/13/2016 Pneumococcal Conjugate PCV 13 06/14/2016 Family History Medical History Relation Name Comments Cancer Brother Relation Name Status Comments Brother Social History Tobacco Use Types Packs/Day Years Used Date Smoking Tobacco: Every Day Cigarettes Smokeless Tobacco: Never Tobacco Cessation:Ready to Q uit: Yes; Counseling Given: Yes Alcohol Use Standard Drinks/Week Comments Not Currently [...] on file Sexual Orientation Not on file Last Filed Vital Signs Vital Sign Reading Time Taken Comments Blood Pressure 119/77 08/25/2024 12:28 PM EDT Pulse 78 08/25/2024 12:28 PM EDT Temperature 36.9 C (98.4 F) 08/25/2024 12:28 PM EDT Respiratory Rate 16 08/25/2024 12:28 PM EDT Oxygen Saturation 97% 08/25/2024 12:28 PM EDT RA Inhaled Oxygen Concentration - - Weight 64 kg (141 lb 1.5 oz) 08/25/2024 12:28 PM EDT Height 177.8 cm (5' 10 ) 08/25/2024 12:28 PM EDT Body Mass Index 20.24 08/25/2024 12:28 PM EDT Plan of Treatment Upcoming Encounters Date Type Department Care Team (Late st Contact Info) Description 12/01/2024 12:50 PM EDT Appointment [facility] [address] [place] [address] 12/01/2024 1:40 PM EDT Office Visit [facility] [address], [address] [place] [address] Yoana Stuart S, REGIONAL CLINICAL RESEARCH ASSOCIATE [address] [place] [address] Health Maintenance Due Date Last Done Comments [facility]-HIV Screening 1973 [facility]-Hepatitis C Screening 1973 [facility]-Medicare Annual Wellness (AWV) 1973 [facility]-/Child/Adol SDOH Screenings 1973 [facility]- SDOH Screenings 1991 [facility]-Adult SDOH Screenings 1991 [facility]-DTaP,Tdap,and Td Vaccine s (1 - Tdap) 1992 [facility]-Hepatitis B Vaccines (1 of 3 - 19+ 3-dose series) 1992 [facility]-Pneumococcal Vaccine: 50 + Years (2 of 2 - PPSV23) 08/09/2016 06/14/2016 CT Colonography 2018 Colonoscopy 2018 FIT-DNA 2018 FIT 2018 FOBT 2018 Sigmoidoscopy 2018 [facility]-Colorectal Cancer Screening 2018 [facility]-Zoster Vaccines (1 of 2) 2023 TRP-GZVUN-17 Vaccine (1 - season) 2024 [facility]-Influenza Vaccine (Seaso n Ended) 2025 02/29/2020, 06/13/2016 [facility]-Depression Screening 08/25/2025 025, 08/25/2024 HPV Vaccines Aged Out No longer eligi ble based on patient's age to complete this topic [facility]-HIB Vaccines Aged Out No longer e ligible based on patient's age to complete this topic [facility]-Hepatitis A Vaccines Aged Out No longer eligible based on patient's age to complete this topic [facility]-IPV Vaccines Aged Out No longer e ligible based on patient's age to complete this topic [facility]-Rotavirus Vaccines Aged Out No lo nger eligible based on patient's age to complete this topic Procedures Procedure Name Priority Date/Time Associated Diagnosis Comments CBC WITH AUTO DIFFERENTIAL Routine 08/25/2024 1:51 PM EDT Asthma-COPD overlap syndrome (CMS/HCC) IMMUNOGLOBULIN E Routine 08/25/2024 1:51 PM EDT Asthma-COPD overlap syndrome (CMS/HCC) VITAMIN D 25 HYDROXY Routine 08/25/2024 1:51 PM EDT Asthma-COPD overlap syndrome (CMS/HCC) ALPHA 1 ANTITRYPSIN PHENOTYPE(INCLUDES CBXJN-6-IZCIKHDGHBO)SO (SO) Routine 08/25/2024 1:51 PM EDT Asthma-COPD overlap syndrome (CMS/HCC) COMPREHENSIVE METABOLIC PANEL, PLASMA Routine 08/25/2024 1:51 PM EDT Asthma-COPD overlap syndrome (CMS/HCC) HC DIFFUSING CAPACITY - CARBON MONOXIDE DIFFUSING CAPACITY Routine 08/25/2024 11:55 AM EDT Chronic obstructive pulmonary disease, unspecified COPD type (CMS/HCC) from Last 3 Months Results * (ABNORMAL) Epuln-8-Rzcpguwgkrv Enzyme Conc and Phenotype (SO) (08/25/2024 1:51 PM EDT) ALPHA 1 ANTITRYPSIN 208(H) 90 - 200 mg/dL 08/29/2024 8:20 AM EDT [facility] A1A Phenotype M1M1 08/29/2024 8:20 AM EDT [facility] ([place]) Blood Venous blood specimen / Unknown Venipuncture / Unknown 08/25/2024 1:51 PM EDT 08/25/2024 1:51 PM EDT Narrative [facility]) - 08/29/2024 8:20 AM EDT To convert to umol/L, multiply mg/dL by 0.185 The patient appears to have a normal phenotype. All M alleles (including subtypes M1, M2, and M3) produce normal serum concentrations of zmona-2-ybhcwrbn inhibitor and are not associated with clinical disease. Caution in interpretation is advised if the patient has been transfused within the previous 21 days. Performed By: [facility] [address] [place] [address] Form Setter/Driver: Hipolito Reyes MD, PhD CLIA Number: [id number] Yoana Stuart APRN LAB BLOOD ORDERABLES Anna l Result [facility] [place] [address] [place] [address] * Vitamin D 25 Hydroxy (08/25/2024 1:51 PM EDT) Vitamin D 25 Hydroxy 21.5 20.0 - 80.0 ng/mL 08/25/2024 4:50 PM EDT [facility] Blood Venous blood specimen / Unknown Venipuncture / Unknown 08/25/2024 1:51 PM EDT 08/25/2024 1:51 PM EDT Narrative [facility] - 08/25/2024 4:50 PM EDT Testing performed on Villegas Deblocker, standardized against NIST SRM 2972. When testing samples from patients whose predominant form of vitamin D is vitamin D2, such as patients receiving vitamin D2 supplementation, results that are subtherapeutic should be confirmed with another method, such as LC-MS/MS, before being used for patient management. Vitamin D, 25-Hydroxy reference range, age 18 years and up: Deficiency: <12 ng/mL Insufficiency: 12 to 19 ng/mL Sufficiency: 20 to 80 ng/mL Possible toxicity: >100 ng/mL us Yoana Stuart REGIONAL CLINICAL RESEARCH ASSOCIATE LAB BLOOD ORDERABLES Anna mo Result [facility] [address] [place] [address] * CBC and differential (08/25/2024 1:51 PM EDT) WBC Count 8.10 3.70 - 10.30 10*3/uL LAB HEMATOLOGY METHOD 08/25/2024 3:06 PM EDT [facility] RBC Count 4.99 4.60 - 6.10 10*6/uL LAB HEMATOLOGY METHOD 08/25/2024 3:06 PM EDT [facility] HGB 14.7 13.7 - 17.5 g/dL LAB HEMATOLOGY METHOD 08/25/2024 3:06 PM EDT [facility] HCT 45.0 40.0 - 51.0 % LAB HEMATOLOGY METHOD 08/25/2024 3:06 PM EDT [facility] Platelet Count 214 155 - 369 10*3/uL LAB HEMATOLOGY METHOD 08/25/2024 3:06 PM EDT [facility] MCV 90 79 - 98 fL LAB HEMATOLOGY METHOD 08/25/2024 3:06 PM EDT [facility] MCH 29.5 26.0 - 32.0 pg LAB HEMATOLOGY METHOD 08/25/2024 3:06 PM EDT [facility] MCHC 32.7 30.7 - 35.5 g/dL LAB HEMATOLOGY METHOD 08/25/2024 3:06 PM EDT [facility] RDW 13.2 11.5 - 14.5 % LAB HEMATOLOGY METHOD 08/25/2024 3:06 PM EDT [facility] MPV 11.2 8.8 - 12.5 fL LAB HEMATOLOGY METHOD 08/25/2024 3:06 PM EDT [facility] nRBC 0.0 <=0.0 per 100 WBCs LAB HEMATOLOGY METHOD 08/25/2024 3:06 PM EDT [facility] Differential Type Automated LAB HEMATOLOGY METHOD 08/25/2024 3:06 PM EDT [facility] Neutrophils % 73 % LAB HEMATOLOGY METHOD 08/25/2024 3:06 PM EDT [facility] Lymphocytes % 22 % LAB HEMATOLOGY METHOD 08/25/2024 3:06 PM EDT [facility] Monocytes % 4 % LAB HEMATOLOGY METHOD 08/25/2024 3:06 PM EDT [facility] Eosinophils % 0 % LAB HEMATOLOGY METHOD 08/25/2024 3:06 PM EDT [facility] Basophils % 1 % LAB HEMATOLOGY METHOD 08/25/2024 3:06 PM EDT [facility] Immature Granulocytes % 0 % LAB HEMATOLOGY METHOD 08/25/2024 3:06 PM EDT [facility] Neutrophils Absolute 5.85 1.60 - 6.10 10*3/uL LAB HEMATOLOGY METHOD 08/25/2024 3:06 PM EDT [facility] Lymphocytes Absolute 1.77 1.20 - 3.90 10*3/uL LAB HEMATOLOGY METHOD 08/25/2024 3:06 PM EDT [facility] Monocytes Absolute 0.36 0.30 - 0.90 10*3/uL LAB HEMATOLOGY METHOD 08/25/2024 3:06 PM EDT [facility] Eosinophils Absolute 0.03 0.00 - 0.50 10*3/uL LAB HEMATOLOGY METHOD 08/25/2024 3:06 PM EDT [facility] Basophils Absolute 0.07 0.00 - 0.10 10*3/uL LAB HEMATOLOGY METHOD 08/25/2024 3:06 PM EDT [facility] Immature Granulocytes Absolute 0.02 0.00 - 0.06 10*3/uL LAB HEMATOLOGY METHOD 08/25/2024 3:06 PM EDT [facility] Blood Venous blood specimen / Unknown Venipuncture / Unknown 08/25/2024 1:51 PM EDT 08/25/2024 1:51 PM EDT Narrative [facility] - 08/25/2024 3:06 PM EDT Therapeutic decision making should be based on absolute values, rather than percentages. us Yoana Stuart APRN LAB BLOOD ORDERABLES Anna l Result [facility] [address] [place] [address] * IgE (08/25/2024 1:51 PM EDT) Immunoglobulin E 47 <=214 kU/L 08/28/19 12:50 PM EDT [facility] ([place]) Blood Venous blood specimen / Unknown Venipuncture / Unknown 08/25/2024 1:51 PM EDT 08/25/2024 1:51 PM EDT Narrative [facility] ([place]) - 08/27/2024 12:50 PM EDT REFERENCE INTERVAL: Immunoglobulin E, Serum Access complete set of age- and/or gender-specific reference intervals for this test in the [employer] [facility] Test Directory ([employer]). Performed By: [facility] [address] [place] [address] Form Setter/Driver: Hipolito Reyes MD, PhD CLIA Number: [id number] Yoana Stuart APRN LAB BLOOD ORDERABLES Anna l Result [facility] [address] [place] [address] * (ABNORMAL) Comprehensive metabolic panel (08/25/2024 1:51 PM EDT) Pathologist [facility] Glucose, Plasma 121(H) 74 - 99 mg/dL 08/25/2024 3:37 PM EDT [facility] BUN, Plasma <3(L) 7 - 21 mg/dL 08/25/2024 3:37 PM EDT [facility] Creatinine, Plasma 0.73 0.70 - 1.20 mg/dL 08/25/2024 3:37 PM EDT [facility] BUN/Creatinine Ratio 08/25/2024 3:37 PM EDT [facility] Comment:Unable to calculate, at least one value is above or below the detection limit. Sodium, Plasma 142 136 - 145 mmol/L 08/25/2024 3:37 PM EDT [facility] Potassium, Plasma 4.2 3.6 - 4.9 mmol/L 08/25/2024 3:37 PM EDT [facility] Chloride, Plasma 103 97 - 107 mmol/L 08/25/2024 3:37 PM EDT [facility] CO2, Plasma 27 22 - 29 mmol/L 08/25/2024 3:37 PM EDT [facility] Anion Gap 12 6 - 16 mmol/L 08/25/2024 3:37 PM EDT [facility] Total Calcium, Plasma 8.9 8.9 - 10.2 mg/dL 08/25/2024 3:37 PM EDT [facility] Total Protein 6.9 6.3 - 7.9 g/dL 08/25/2024 3:37 PM EDT [facility] Albumin, Plasma 3.8 3.5 - 5.2 g/dL 08/25/2024 3:37 PM EDT [facility] AST, Plasma 22 10 - 50 U/L 08/25/2024 3:37 PM EDT [facility] ALT, Plasma 13 10 - 50 U/L 08/25/2024 3:37 PM EDT [facility] Alkaline Phosphatase, Plasma 100 40 - 115 U/L 08/25/2024 3:37 PM EDT [facility] Total Bilirubin, Plasma 0.3 0.2 - 1.1 mg/dL 08/25/2024 3:37 PM EDT [facility] eGFRcr 110.2 mL/min/1.7 3m*2 08/25/2024 3:37 PM EDT [facility] Comment:Reported eGFRcr in m L/min/1.73m2 is based the CKD-EPI 2020 equation that does not use a race coefficient. Blood Venous blood specimen / Unknown Venipuncture / Unknown 08/25/2024 1:51 PM EDT 08/25/2024 1:51 PM EDT us Yoana Stuart APRN LAB BLOOD ORDERABLES Anna l Result [facility] [address] [place] [address] * (ABNORMAL) Pulmonary function test (08/25/2024 11:55 AM EDT) RYJ1BDUM 3.17(A) 3.86 - 6.06 L VYAIRE PFT RYO5NEQ 2.73(A) 3.86 - 6.06 L VYAIRE PFT FVC PRED 4.95 VYAIRE PFT FVC LLN 3.86 VYAIRE PFT FVCPREZSCORE -3.38 VYAIRE PFT FVCPRE%PRED 55 % % VYAIRE PFT FVCPOSTZSCORE -2.70 VYAIRE PFT FVCPOST%PRED 64 % % VYAIRE PFT FVCCHNG 442.00 VYAIRE PFT FVC%CHG 16 % % VYAIRE PFT FVC PREDAUTH _[facility]jer GLI (2011) VYAIRE PFT FVC Z-SCORE -3.38 -2.70 VYAIRE PFT ZYC60PTAH 1.43(A) 3.03 - 4.72 L VYAIRE PFT FEV1 PRE 1.27(A) 3.03 - 4.72 L VYAIRE PFT FEV1 PRED 3.90 VYAIRE PFT FEV1 LLN 3.03 VYAIRE PFT TSJ2PJSBLLCKN -4.63 VYAIRE PFT FEV1_Pre%Pred 33 % % VYAIRE PFT GFK6MFUUSEQXFG -4.39 VYAIRE PFT EGP1XVHW%PRED 37 % % VYAIRE PFT SDK8QWHI 160.37 VYAIRE PFT FEV1%CHG 13 % % VYAIRE PFT FEV1 PREDAUTH _[facility]jer GLI (2011) VYAIRE PFT FEV1 Z-SCORE -4.63 -4.39 VYAIRE PFT HXD9HJM5FTSI 45.24(A) 67.90 - 88.37 % VYAIRE PFT FEV1/FVC PRE 46.69(A) 67.90 - 88.37 % VYAIRE PFT WVN3YQEKRJH 79 VYAIRE PFT LNA3GXSXOE 68 VYAIRE PFT KTT4XCASKFNPREDX -4.02 VYAIRE PFT PHM5ZKPQJC%PRED 59 % % VYAIRE PFT NAF2IKEILWNFXXLCJ -4.14 VYAIRE PFT ZUY6QCBCFIA%PRED 57 % % VYAIRE PFT HBU0BLGJOUG -1,451 VYAIRE PFT UDV9KOG%CHG -3 % % VYAIRE PFT QZH6GZJHIZPC [facility] GLI (2011) VYAIRE PFT BCF4PTKSEGGIS -4 -4 VYAIRE PFT EDC73-37%_POST 0.62(A) 1.89 - 5.65 L/s VYAIRE PFT PYT39-59% PRE 0.61(A) 1.89 - 5.65 L/s VYAIRE PFT IAH35-49%_Pred 3.52 VYAIRE PFT ZQN3918%LLN 1.89 VYAIRE PFT AJV5670%PREZSCORE -3.59 VYAIRE PFT PSG6781%PRE%PRED 17 % % VYAIRE PFT DGI1603%POSTZSCORE -3.58 VYAIRE PFT BLS6531%POST%PRED 17 % % VYAIRE PFT PHV9356%CHNG 5.31 VYAIRE PFT NXK2333%%CHG 1 % % VYAIRE PFT WPV8098%[facility] GLI (2011) VYAIRE PFT BSX9HKRD 2.72(A) 7.46 - 12.09 L/s VYAIRE PFT PEF PRE 2.81(A) 7.46 - 12.09 L/s VYAIRE PFT PEF PRED 9.78 VYAIRE PFT PEF LLN 7.46 VYAIRE PFT PEFPREZSCORE -4.95 VYAIRE PFT PEFPRE%PRED 29 % % VYAIRE PFT PEFPOSTZSCORE -5.01 VYAIRE PFT PEFPOST%PRED 28 % % VYAIRE PFT PEFCHNG -88.00 VYAIRE PFT PEF%CHG -3 % % VYAIRE PFT PEF PREDUN[facility] NHANES III (1998) VYAIRE PFT OBUMIDUIVLVNBYEB3WYO 16.63(A) 22.24 - 37.23 ml/(min* mmHg) VYAIRE PFT DLCOSINGLEBREATH PRED 29.15 VYAIRE PFT DLCOSINGLEBREATH LLN 22.24 VYAIRE PFT DLCOSINGLEBREATH Z-SCORE -3.23 VYAIRE PFT DLCOSINGLEBREATH % PRED 57.0 % VYAIRE PFT DLCOSINGLEBREATH PREDC[facility]ojev[facility] (2019) VYAIRE PFT DLCOSINGLEBREATH Z-SCORE -3.23 08/25/2024 11:54 AM EDT VYAIRE PFT RZIFERKQZYIFUMOWI5EX E 16.63(A) 22.24 - 37.23 ml/(min* mmHg) VYAIRE PFT DLCOCSINGLEBREATH PRED 29.15 VYAIRE PFT DLCOCSINGLEBREATH LLN 22.24 VYAIRE PFT DLCOCSINGLEBREATH Z-SCORE -3.23 VYAIRE PFT DLCOCSINGLEBREATH % PRED 57.0 % VYAIRE PFT DLCOCSINGLEBREATH PREDAUT St[facility]ev[facility] TLCO GLI (2019) VYAIRE PFT KCEYFP4OZS 3.22(A) 3.42 - 5.53 ml/(min* mmHg*L) VYAIRE PFT DLCOVAPRED 4.44 VYAIRE PFT DLCOVALLN 3.42 VYAIRE PFT DLCOVAZSCORE -2.00 VYAIRE PFT DLCOVA%PRED 72.5 % VYAIRE PFT DLCOVAPREDAUT Stanojevic TLCO GLI (2019) VYAIRE PFT DLCOVAZSCORE -2.00 08/25/2024 11:54 AM EDT VYAIRE PFT FPDFQLIDK8ZOK 3.22(A) 3.42 - 5.53 ml/(min* mmHg*L) VYAIRE PFT DLCOC SB/VA PRED 4.44 VYAIRE PFT DLCOC SB/VA LLN 3.42 VYAIRE PFT DLCOC SB/VA Z-SCORE -2.00 VYAIRE PFT DLCOC SB/VA % PRED 72.5 % VYAIRE PFT DLCOC SB/VA PREDAUTH Stanojevic TLCO GLI (2019) VYAIRE PFT DLCOC SB/VA Z-SCORE -2.00 08/25 11:54 AM EDT VYAIRE PFT SAKNGTBMJYLOOH9SGR 5.17(A) 5.38 - 7.95 L VYAIRE PFT VASINGLEBREATH PRED 6.62 VYAIRE PFT VASINGLEBREATH LLN 5.38 VYAIRE PFT VASINGLEBREATH Z-SCORE -1.93 VYAIRE PFT VASINGLEBREATH % PRED 78.1 % VYAIRE PFT VASINGLEBREATH PREDUNM [facility]IL[facility] Stanojevic TLCO GLI (2019) VYAIRE PFT VASINGLEBREATH Z-SCORE -1.93 08/25/2024 11:54 AM EDT VYAIRE PFT PIBPUZFEABCCUAN2PBE 2.60(A) 3.86 - 6.06 L VYAIRE PFT IVCSINGLEBREATH PRED 4.95 VYAIRE PFT IVCSINGLEBREATH LLN 3.86 VYAIRE PFT IVCSINGLEBREATH Z-SCORE -3.58 VYAIRE PFT IVCSINGLEBREATH % PRED 52.5 % VYAIRE PFT IVCSINGLEBREATH PRED[facility] GLI (2011) VYAIRE PFT HALIE% VCMAX PRE 94.86 % VYAIRE PFT TLC SB PRE 5.31(A) 5.83 - 8.62 L VYAIRE PFT TLCSINGLEBREATH PRED 7.22 VYAIRE PFT TLCSINGLEBREATH LLN 5.83 VYAIRE PFT TLCSINGLEBREATH Z-SCORE -2.27 VYAIRE PFT TLCSINGLEBREATH % PRED 73.6 % VYAIRE PFT TLCSINGLEBREATH [facility]ED[facility] Lung volumes GLI (2019)__ VYAIRE PFT HB PRE 14.60 g(Hb)/dL VYAIRE PFT CNA0VBF 8.62 5.83 - 8.62 L VYAIRE PFT TLCPRED 7.22 VYAIRE PFT TLCLLN 5.83 VYAIRE PFT TLCULN 8.62 VYAIRE PFT TLCZSCORE 1.64 VYAIRE PFT TLC%PRED 119.4 % VYAIRE PFT TLCPREDAUTMer[facility] Lung volumes GLI (2019)__ VYAIRE PFT VC0PRE 2.74(A) 3.86 - 6.06 L VYAIRE PFT VCPRED 4.95 VYAIRE PFT VCLLN 3.86 VYAIRE PFT VCULN 6.06 VYAIRE PFT VCZSCORE -3.36 VYAIRE PFT VC%PRED 55.3 % VYAIRE PFT VCPREDAUT [facility] GLI (2011) VYAIRE PFT IC0PRE 1.53(A) 2.70 - 4.88 L VYAIRE PFT ICPRED 3.82 VYAIRE PFT ICLLN 2.70 VYAIRE PFT ICULN 4.88 VYAIRE PFT IC Z-SCORE -3.28 VYAIRE PFT IC%PRED 40.0 % [facility]AIRE PFT ICPREDLongwood Hospital Lung volumes GLI (2019)__ VYAIRE PFT UXNXHGKB2QLV 7.09(A) 2.39 - 4.86 L VYAIRE PFT FRCPLETH PRED 3.48 VYAIRE PFT FRCPLETH LLN 2.39 VYAIRE PFT FRCPLETH ULN 4.86 VYAIRE PFT FRCPLETH Z-SCORE 3.75 VYAIRE PFT FRCPLETH % PRED 203.8 % VYAIRE PFT FRCPLET PREDAUTMer[facility] Health [facility] Lung volumes GLI (2019)__ VYAIRE PFT YAX2APT 1.21 0.59 - 2.63 L VYAIRE PFT ERVPRED 1.44 VYAIRE PFT ERVLLN 0.59 VYAIRE PFT ERVULN 2.63 VYAIRE PFT ERV Z-SCORE -0.38 VYAIRE PFT ERV%PRED 84.0 % [facility]VPSouth [facility] (2019)__ VYAIRE PFT RV0PRE 5.88(A) 1.14 - 2.81 L VYAIRE PFT RVPRED 1.90 VYAIRE PFT RVLLN 1.14 VYAIRE PFT RVULN 2.81 VYAIRE PFT RVZSCORE 6.03 VYAIRE PFT RV%PRED 309.6 % VYAIRE PFT RVPREDAUT [facility] Lung volumes GLI (2019)__ VYAIRE PFT RV%LUJ2USJ 68.20(A) 17.07 - 35.40 % VYAIRE PFT RV%TLCPRED 26 VYAIRE PFT RV%TLCLLN 17 VYAIRE PFT RV%TLCULN 35 VYAIRE PFT RV%TLCZSCORE 7.01 VYAIRE PFT RV%TLC%PRED 262.1 % VYAIRE PFT RV%TLCPREDAUTH [facility] Lung volumes GLI (2020)__ VYAIRE PFT Anatomical Region Laterality Modality PFT 08/25/2024 11:0 8 AM EDT Narrative 08/26/2024 4:19 PM EDT Pulmonary Function Testing Report Reuben Lang 49 y.o. underwent pulmonary function testing today at the [facility]. The patient underwent spirometry, lung volumes by body plethysmography, and diffusion capacity testing testing. All tests were appropriately administered via ATS/ERS criteria. Spirometry: Reduced FEV1 and reduced ratio consistent with severe obstruction. A concomitant restrictive process is excluded by normal TLC on plethysmography. There is no significant positive bronchodilator response. Lung Volumes: Elevated RV/TLC which is suggestive of air trapping. Diffusion Capacity: Test Quality: A. Data meets the highest standards for acceptability. Diffusion capacity uncorrected for Hb is moderately reduced. A reduced DLCO with a low VA and low/normal KCO is a pattern that may suggest loss of alveolar capillary structure with loss of lung volume in conditions such as emphysema and ILD. Trend: There are no prior studies for comparison. Yoana Stuart REGIONAL CLINICAL RESEARCH ASSOCIATE PFT ORDERABLES Final Res ult from Last 3 Months Insurance MEDICARE Care Teams Cell Stripper Final Relationship Specialty Start Date End Date Pcp, [place] [address] PCP - General Family Medicine 06/21/22
--- OUTSIDE RECORDS SUMMARY | 2024-11-15 12:39 | XMS_ITS | Clinical Summary ---
Author Organization [facility] Address [address] [place] [address] Phone Care Team Providers Care Riveting Machine Operator Automatic Name Role Phone Unavailable Primary Care Provider Unavailabl e Allergies Active Allergy Reactions Criticality Noted Date Comments Pramipexole Shortness Of Breath 08/06/2016 Medications montelukast (SINGULAIR) 10 mg Oral TabletIndications: Allergic conjunctivitis and rhinitis, bilateral,Moderate persistent asthma, unspecified whether complicated Take 1 Tab by mouth nightly. 30 Tab 2 8 Active DULERA 200-5 mcg/actuation Inhl HFA Aerosol InhalerIndications :Moderate persistent asthma, unspecified whether complicated INHALE 2 PUFFS BY MOUTH ONCE DAILY 13 g 2 8 Active VENTOLIN HFA 90 mcg/actuation Inhl HFA Aerosol InhalerIndications :Moderate persistent asthma, unspecified whether complicated INHALE 2 PUFFS BY MOUTH EVERY 6 HOURS NEEDED FOR WHEEZING 1 Inhaler 2 8 Active albuterol (PROVENTIL) 2.5 mg /3 mL (0.083 %) Inhl Solution for NebulizationIndica tions:Moderate persistent asthma, unspecified whether complicated USE 1 VIAL IN NEBULIZER THREE TIMES DAILY 90 mL 2 8 Active Active Problems Patient Care Coordination No te Formatting of this note migh t be different from the original. UDS (09/18/2017) - Positive for Methadone NO CONTROLLED DRUGS FROM [facility] Problem Noted Date Diagnosed Date Mild methadone abuse 09/18/2017 Alcohol dependence in remission 10/04/2016 Pneumonia of right middle lobe due to infectious organism 06/14/2016 Asthma 09/08/2014 GERD (gastroesophageal reflux disease) 5 RLS (restless legs syndrome) 08/20/2014 Immunizations Immunization Administration Dates Next Due Influenza Vaccine Quadrivalent PF 06/13/2016 Pneumococcal Conjugate Vaccine 13 Valent 017 Medical History Medical History Date Comments Restless leg syndrome Heartburn Family History Medical History Relation Name Comments Arthritis Brother 1 Cancer Mother Diabetes Mother Heart Disease Mother High Blood Pressure Mother High Cholesterol Mother Stroke Mother Relation Name Status Comments Brother 1 Alive Brother 2 Alive Brother 3 Alive Father Alive Mother Alive Social History Tobacco Use Types Packs/Day Years Used Date Smoking Tobacco: Every Day Cigarettes 1 28.4 Started: 06/13/1996 Smokeless Tobacco: Never Tobacco Cessation:Ready to Q uit: No; Counseling Given: Yes Alcohol Use Standard Drinks/Week Comments No 0 (1 standard drink = 0.6 oz pur e alcohol) Sex and Gender Information Value Date Recorded Sex Assigned at Not on file Legal Sex Male 11:13 AM EST Gender Identity Not on file Sexual Orientation Not on file Obstetrics History Last Filed Vital Signs Vital Sign Reading Time Taken Comments Blood Pressure 134/82 09/18/2017 10:03 AM EDT Pulse 68 10/04/2016 12:01 PM EDT Temperature 36.9 C (98.4 F) 09/18/2017 10:03 AM EDT Respiratory Rate 16 10/04/2016 12:01 PM EDT Oxygen Saturation 93% 06/14/2016 2:24 PM EST Inhaled Oxygen Concentration - - Weight 78 kg (172 lb) 09/18/2017 10:03 AM EDT Height 177.8 cm (5' 10 ) 09/18/2017 10:03 AM EDT Body Mass Index 24.68 09/18/2017 10:03 AM EDT Plan of Treatment Health Maintenance Due Date Last Done Comments DTaP/TDaP/Td (1 - Tdap) 1992 Hepatitis B Vaccine (1 of 3 - 19+ 3-dose series) 1992 Pneumococcal Vaccine 50+ (2 of 2 - PPSV23, PCV20, or PCV21) 08/09/2016 06/14/2016 Annual Wellness Exam 08/06/2017 08/06/2016 Cologuard 2018 Colon Cancer Screening 2018 Colonoscopy 2018 FIT 2018 Sigmoidoscopy 2018 Virtual Colonography 2018 Low Dose Lung Cancer Screening 2023 Zoster (1 of 2) 2023 COVID-19 Vaccine (2023-2 5 season) 2024 Influenza Vaccine (Season Ended) 2025 02/21/2017 (Declined), 06/13/2016, 02/24/2015 (Declined) Meningococcal B Vaccine Aged Out No l onger eligible based on patient's age to complete this topic Goals Goal Patient Goal Type Associated Problems Recent Progress Patient-Stated? Author Patient to take all medications as prescribed. General No Fariha Lang RN Eat better, exercise, reach an ideal body weight General No Fariha Lang RN Make sure you keep all follow up appointments Lifestyle No Fariha Lang RN Stay Tobacco Free Lifestyle No Fariha Lang RN Insurance Research for Good [facility] [address] Advance Directives For more information, please contact: [phone] * Full Code (Latest Code Status on File) Date Activated Date Inactivated Comments 06/14/2016 3:44 PM 06/14/2016 9:19 PM
--- OUTSIDE RECORDS SUMMARY | 2024-11-15 12:39 | XMS_ITS | Encounter Summary ---
Author Organization [facility] Address [address] [place] [address] Care Team Providers Care Electronic Systems Security Assessment Name Role Phone Pcp, No Primary Care Provider Unavailabl e Reason for Referral * Consultation (Routine) - Closed Specialty Diagnoses / Procedures Referred By Contac t Referred To Contact Pulmonary Disease / Pulmonology Diagnoses Chronic obstructive pulmonary disease, unspecified COPD type (CMS/HCC) Gato Rutledge MD [address] [address] Phone: tel: fax: Referral ID Status Reason Start Date Expiration Date V isits Requested Visits Authorized [id number] Closed Specialty Services Required 05/14/2024 11/13/2025 1 1 Encounter Details Date Type Department Care Team (Late st Contact Info) Description 05/14/2024 Community [facility] [address] [place] [address] Gato Rutledge MD [address] [phone] Chronic obstructive pulmonary disease, unspecified COPD type (CMS/HCC) (Primary Dx) Social History Tobacco Use Types Packs/Day Years [...] on file documented as of this encounter Plan of Treatment Upcoming Encounters Date Type Department Care Team (Late st Contact Info) Description 12/01/2024 12:50 PM EDT Appointment [facility] [address] [place] [address] 12/01/2024 1:40 PM EDT Office Visit [facility] [address] [place] [address] Yoana Stuart S, HEALTH TYPE TECHNICIAN [address] [place] [address] Scheduled Referrals Name Type Priority Associated Diagnoses Orde r Schedule Ambulatory referral to Pulmonology Outpatient Referral Routine Chronic obstructive pulmonary disease, unspecified COPD type (CMS/HCC) Expected: 05/14/2024 (Approximate), Expires: 11/12/2025 documented as of this encounter Visit Diagnoses Diagnosis Chronic obstructive pulmonary disease, unspecified COPD type (CMS/HCC)- Primary documented in this encounter Care Teams Electronic Systems Security Assessment Relationship Specialty Start Date End Date Pcp, Farheen [address] [place] [address] PCP - General Family Medicine 06/21/22 documented as of this encounter
--- NOTE | 2024-11-15 12:45 | ECG_ITS ---
APPROVED REPORT Exam: Resting ECG HR:105 bpm ECG Measurements Heart Rate 105 AXES WI 136 P 83 QRSd 77 QRS 80 QT 265 T 73 QTc 326 Conclusion SINUS TACHYCARDIA NONSPECIFIC T-WAVE ABNORMALITY No STEMI Electronically signed by : SHERI ALVARES, 11/16/2024 03:56:29
--- NOTE | 2024-11-15 12:45 | ED_ITS ---
<Statement entered by Farideh Newell MD - 11/15/24 15:35> I was consulted by the TRI[facility], and we discussed the complexity of problems being addressed. I approved the treatment and management plan for this patient's care in the emergency department, thus performing a substantive portion of the medical decision making. Farideh Newell MD Discharge Plan Disposition Patient Disposition: Admitted Condition: Good Clinical Impressions Clinical Impression: Acute exacerbation of chronic obstructive pulmonary disease, Elevated troponin, Dyspnea on exertion Discharge ED Provider: Farideh Newell HPI General Chief Complaint: Shortness of Breath/Dyspnea Stated Complaint: SOA, cough Time Seen by Provider: 11/15/24 12:36 Mode of Arrival: Ambulatory Source of Information: Patient Description of Symptoms (Recalled from ER Triage Doc. by RN): Patient states he has been feeling short of breath and had a productive cough for about the last 3 days. 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 Initial triage vitals notable for tachycardia and blood pressure 93/68. Related Data Home Medications ?Medication ?Instructions ?Recorded ?Confirmed albuterol sulfate 90 mcg/actuation See Rx Instructions .Route .COMPLEX 07/08/24 07/08/24 aerosol inhaler fluticasone fur. 100 mcg-umeclid See Rx Instructions . Route .COMPLEX 07/08/24 07/08/24 62.5 mcg-vilant 25 mcg inhalat.powder (Trelegy Ellipta) methadone 10 mg tablet See Rx Instructions .Route . COMPLEX 07/08/24 07/08/24 Previous Rx's ?Medication ?Instructions ?Recorded doxycycline hyclate 100 mg capsule 100 mg PO BID 10 da ys #20 caps 07/08/24 prednisone 50 mg tablet 50 mg PO DAILY 5 days #5 tab s 07/08/24 Allergies Allergy/AdvReac Type Severity Reaction Status Date / Time No Known Allergies Allergy Verified 11/15/24 12:43 [facility] Disclaimer: The information contained in this section may have been updated after the patient was seen, as this information can be updated by other users. Social History Smoking Status: Current every day smoker tobacco type: cigarettes packs per day: 1 second hand exposure: No alcohol intake: never substance use type: former substance user, opiates, painkillers and prescription drug current occupational status: other Travel in the last 8 weeks?: None household members: significant other housing: house caffeine: Yes Have you lived/traveled outside US in past 30 days?: No Contact w/someone who lives/traveled outside US past 30 days?: No Exposure to someone with infectious disease in past 14 days?: No Do you have a fever (greater than 100.4 F or 38 C)?: No Have you tested positive for COVID-19?: No Exposed to someone with COVID-19 in past 14 days?: No Do you have a sore throat?: No Do you have a cough?: Yes Do you have any weakness?: No Do you have any diarrhea?: No Are you experiencing any unusual bleeding?: No Do you have any muscle aches/pain?: No Do you have any abdominal pain?: No Are you experiencing loss of taste or smell?: No Other Medical History Have you received the Flu Vaccine for this season: Yes Have you received the Pneumonia Vaccine: No ROS Obtained: Yes All systems reviewed & no additional complaints except as documented Physical Exam General General appearance: alert and in no apparent distress Head Head exam: atraumatic and normocephalic Eye Eye exam: Present PERRL and EOMI ENT ENT exam: Present mucous membranes moist Neck Neck exam: Present normal inspection Chest Chest inspection: Present normal inspection and symmetric chest wall rise Respiratory Respiratory exam: Present wheezes, accessory muscle use and other (Some mild accessory use worse with expiration, mild to moderate diffuse wheezes noted throughout bilateral lung holguin not currently in respiratory distress); Absent normal lung sounds bilaterally or respiratory distress Cardiovascular Cardiovascular exam: Present regular rate and normal rhythm Abdominal Exam Abdominal exam: Present soft; Absent tenderness Extremities Exam Extremities exam: Present normal inspection Neurological Exam Neurological exam: Present alert and oriented X3 Psychiatric Psychiatric exam: Present normal affect Skin Skin exam: Present warm and dry HEART Score HEART Score HEART Score assessment performed?: Yes HEART Score: 5 Critical Care Critical Care Time Critical Care Time: No Medical Decision Making Medical Records Medical records reviewed: Yes I reviewed the patient's medical records. Willie Inquiry Pt receiving controlled substance: No Willie was queried for this patient: No Vital Signs Vital Signs: 11/15/24 12:38 11/15/24 13:02 11/15/24 13:31 Temperature 98.8 F Temperature Source Oral Pulse Rate 102 H 110 H Pulse Rate [Right Radial] 104 H Respiratory Rate 18 18 18 Blood Pressure 93/63 L 132/106 H Blood Pressure [Right Arm] 124/77 Blood Pressure Mean 75 114 Blood Pressure Mean [Right Arm] 92 Blood Pressure Source Blood Pressure Source [Right Arm] Automatic Cuff Blood Pressure Position [Right Arm] Sitting 02 Sat by Pulse Oximetry 100 99 96 Oxygen Delivery Method Room Air 11/15/24 14:15 11/15/24 14:30 11/15/24 15:00 Temperature Temperature Source Pulse Rate 106 H 98 H 99 H Pulse Rate [Right Radial] Respiratory Rate 18 Blood Pressure 109/70 L 118/81 119/84 Blood Pressure [Right Arm] Blood Pressure Mean 93 91 Blood Pressure Mean [Right Arm] Blood Pressure Source Blood Pressure Source [Right Arm] Blood Pressure Position [Right Arm] 02 Sat by Pulse Oximetry 92 L 94 L 94 L Oxygen Delivery Method Room Air Room Air 11/15/24 15:07 Temperature 98.8 F Temperature Source Oral Pulse Rate 96 H Pulse Rate [Right Radial] Respiratory Rate 20 Blood Pressure 119/84 Blood Pressure [Right Arm] Blood Pressure Mean Blood Pressure Mean [Right Arm] Blood Pressure Source Automatic Cuff Blood Pressure Source [Right Arm] Blood Pressure Position [Right Arm] 02 Sat by Pulse Oximetry Oxygen Delivery Method Room Air Lab Data Lab results reviewed: Yes I reviewed the patient's lab results. Labs: Lab Results 11/15/24 12:45: WBC 8.1, RBC 4.82, Hgb 14.0 L, Hct 42.4, MCV 88.0, MCH 29.0, MCHC 33.0, RDW 12.4, Plt Count 167, MPV 9.9, Neut % (Auto) 83.2 H, Lymph % (Auto) 9.9 L, [place] % (Auto) 6.4, Eos % (Auto) 0.0 L, Baso % (Auto) 0.4, Neut # (Auto) 6.8, Lymph # (Auto) 0.8, [place] # (Auto) 0.5, Eos # (Auto) 0.0, Baso # (Auto) 0.0, D-Dimer 0.58 H, Sodium 137, Potassium 3.5, Chloride 99, Carbon Dioxide 36 H, Anion Gap 5.5, BUN 4 L, Creatinine 0.70, Estimated Creat Clear 104, Estimated GFR 119, Est GFR ( Amer) 144, Glucose 110 H, Calcium 8.9, Magnesium 2.0, Total Bilirubin 0.4, AST 87 H, ALT 31, Alkaline Phosphatase 95, T roponin I 0.17 H, NT-Pro-B Natriuret Pep 555 H, Total Protein 7.2, Albumin 3.9, Globulin 3.3 H, Albumin/Globulin Ratio 1.2 11/15/24 12:55: SARS-CoV-2 (PCR) Not detected, Influenza A Untype (PCR) Not detected, Influenza Type B (PCR) Not detected 11/15/24 12:45 11/15/24 12:45 Response Orders (Tests/Meds): ED MEDICATIONS Generic Name Dose Route Start Last Admin Trade Name Freq PRN Reason Stop Dose Admin Acetaminophen 650 mg 11/15/24 14:56 Acetaminophen 325mg Tab PO 12/15/24 14:55 Q4HP PRN Fever or Mild Pain (1-3) Aspirin 81 mg 11/16/24 09:00 Aspirin 81mg Chewable Tablet PO 12/16/24 08:59 DAILY BREANNE Atorvastatin Calcium 40 mg 11/15/24 21:00 Atorvastatin 40mg Tablet PO 12/15/24 20:59 HS BREANNE Enoxaparin Sodium 40 mg 11/16/24 09:00 Enoxaparin 40mg/0.4ml Syringe SUBCUT 12/16/24 08:59 DAILY BREANNE Enoxaparin Sodium 60 mg 11/15/24 15:02 11/15/24 15:11 Enoxaparin 100mg/Ml Syringe 1 mg/kg (60 mg) 11/15/24 15:03 60 mg SUBCUT Administration ONCE ONE Ibuprofen 400 mg 11/15/24 14:56 Ibuprofen 400 Mg Tablet PO 12/15/24 14:55 Q6HP PRN Mild Pain (1-3) Nicotine 21 mg 11/15/24 14:56 Nicotine 21mg/24hr Patch TD 12/15/24 14:55 DAILYP PRN Nicotine Cravings Ondansetron HCl 4 mg 11/15/24 14:56 Ondansetron 4mg/2ml Vial IV 12/15/24 14:55 Q8HP PRN Nausea Discontinued Medications Generic Name Dose Route Start Last Admin Trade Name Freq PRN Reason Stop Dose Admin Albuterol/Ipratropium 9 ml 11/15/24 12:43 11/15/24 12:51 Ipratropium/Albuterol 3 Ml Neb IH 11/15/24 12:44 9 ml ONCE ONE Administration Iopamidol 70 ml 11/15/24 13:36 11/15/24 13:38 Iopamidol-370 (76%);100ml Bottle IV 11/15/24 13:37 70 ml ONCE ONE Administration Methylprednisolone Sodium Succinate 125 mg 11/15/24 12:43 11/15/24 12:51 Methylprednisolone Sod Succ 125mg Vial IV 11/15/24 12:44 125 mg ONCE ONE Administration Sodium Chloride 10 ml 11/15/24 13:36 11/15/24 13:38 Sodium Chloride 0.9% 10ml Syr (Rad Only) IV 11/15/24 13:37 10 ml ONCE ONE Administration Sodium Chloride 50 ml 11/15/24 13:36 11/15/24 13:37 0.9 % Sodium Chloride 50 Ml Vial IV 11/15/24 13:37 50 ml ONCE ONE Administration ORDERS Category Date Time Status CTA Chest [CT angio chest PE protocol] Stat Cat Scan 11/15/24 13:18 Completed XR chest portable Stat Exams 11/15/24 12:38 Completed Complete Blood Count Auto Diff Stat Lab 11/15/24 12:45 Completed Comprehensive Metabolic Panel Stat Lab 11/15/24 12:45 Completed D-Dimer Stat Lab 11/15/24 12:45 Completed Magnesium Stat Lab 11/15/24 12:45 Completed NT Pro Brain Natriuretic Pep. Stat Lab 06/15/25 12:45 Completed Rapid PCR Covid and Flu A/B Stat Lab 11/15/24 12:55 Completed Troponin I Q3H Lab 11/15/24 15:45 Ordered Troponin I Q3H Lab 11/15/24 18:45 Ordered Troponin I Stat Lab 11/15/24 12:45 Completed MDM Narrative Medical Decision Narrative: 49-year-old male presents to the emergency department with productive cough dyspnea with exertion, differential diagnosis include but not limited to, COPD exacerbation, acute bronchitis, viral syndrome, pneumonia, costochondritis PE, cardiac arrhythmia, electrolyte disturbance, pneumothorax. I discussed patient case with attending physician Dr. Newell Will obtain basic laboratory studies, EKG, CXR, D-dimer magnesium level proBNP, rapid PCR COVID and flu troponin, will give 9 mL DuoNeb per RT, and 125 mg IV methylprednisone. I along with the attending physician reviewed the patient's EKG that was performed at 12:45 AM, sinus tachycardia at 105 bpm, LA interval and QT interval within normal limits, no ST wave segment changes that would be indicative of active STEMI. CBC unremarkable Hypercapnia noted at 36, AST is minimally elevated at 87 otherwise unremarkable CMP D-dimers minimally elevated at 0.58, Troponin is mildly elevated at 0.17 will obtain CTA chest with and without contrast PE protocol, looking at prior EKG from 2019, ST segment changes are new, however patient has not had any other EKGs since 2019. Troponin that was recorded on laboratory value in July 2024 was also within normal limits. proBNP is mildly elevated at 555 Rapid PCR COVID and flu are negative. I reviewed the patient's chest x-ray along with corresponding radiologic report, COPD with no active disease I reviewed the patient's CTA chest with and without contrast PE protocol, technically limited but negative CT angiogram of the chest no evidence of acute pulmonary embolism to the major branch of the pulmonary vascular tree, COPD with upper lobe emphysematous changes, 2.5 cm cavitary lesion right upper lobe and smaller cavitary nodular above, the right hilum that may be chronic, recommend repeat CT chest in 3 months, mild patchy bronchiolitis at the lung bases likely infectious in nature, mild mediastinal and hilar lymphadenopathy may also be chronic and could be reassessed in 3 months. I discussed this patient's case with the hospitalist physician at approximately 2:35 PM, he is in agreement with the current admission plan/treatment plan for elevated troponin, COPD exacerbation no further cardiac workup. I discussed need for admission with the patient and family at the bedside patient and family are in agreement with current treatment plan/admission plan.
[2024-11-15 12:50] LABS: Basophils % 0.4 % (0.1-2.0); Hematocrit 42.4 % (42.0-52.0); Immature Granulocytes # 0.01 10^3uL; Immature Granulocytes % 0.1 %; Lymphocytes # 0.8 K/mm3 (0.7-4.5); Lymphocytes % 9.9 % (10-50); Mean Platelet Volume 9.9 fl (7.4-10.4); Monocytes # 0.5 K/mm3 (0.1-1.0); Monocytes % 6.4 % (1.7-9.3); Neutrophils # 6.8 K/mm3 (1.8-7.8); Neutrophils % 83.2 % (37.0-80.0); Nucleated Red Blood Cells # 0 10^3/uL; Nucleated Red Blood Cells % 0 %; Platelet Count 167 K/mm3 (142-424); Red Blood Count 4.82 M/mm3 (4.60-6.20); Red Cell Distribution Width 12.4 % (11.5-17.5); Red Cell Distribution Width-SD 40.2 fL; White Blood Count 8.1 K/mm3 (4.8-10.8)
[2024-11-15] MEDS: IPRATROPIUM/ALBUTEROL 3 ML NEB 9 ML IH (12:51)
[2024-11-15] MEDS: METHYLPREDNISOLONE SOD SUCC 125MG VIAL 125 MG IV (12:51)
[2024-11-15 12:58] LABS: Coronavirus 19, PCR Not Detected (NotDetected); Influenza A, PCR Not Detected (NotDetected); Influenza B, PCR Not Detected (NotDetected)
[2024-11-15 13:00] LABS: Alanine Aminotransferase 31 U/L (12-78); Albumin Level 3.9 g/dl (3.5-5.0); Albumin/Globulin Ratio 1.2 (1.1-1.8); Alkaline Phosphatase 95 U/L (38-126); Anion Gap 5.5 mEq/L (5-15); Aspartate Amino Transferase 87 U/L (17-59); Bilirubin,Total 0.4 mg/dl (0.2-1.3); Blood Urea Nitrogen 4 mg/dl (9-20); Calcium 8.9 mg/dl (8.4-10.2); Carbon Dioxide 36 mmol/L (22.0-30.0); Chloride 99 mmol/L (98-107); Creatinine Clearance Estimated 104 mL/min (50-200); Estimated Glomerular Filt Rate 119 ml/min (>60); GFR (African American) 144 ML/MIN (>60); Globulin 3.3 g/dL (1.3-3.2); Glucose 110 mg/dl (74-100); Potassium 3.5 mmoL/L (3.5-5.1); Sodium 137 mmol/L (136-145); Total Protein,Serum 7.2 g/dl (6.3-8.2)
[2024-11-15 13:04] LABS: D-Dimer 0.58 ug/mL (0.0-0.5)
[2024-11-15 13:12] LABS: Troponin I 0.17 ng/ml (0.00-0.034)
[2024-11-15 13:16] LABS: NT Pro Brain Natriuretic Pep. 555 pg/mL (0-125)
--- NOTE | 2024-11-15 13:18 | CT_ITS ---
PROCEDURE INFORMATION: Exam: CTA Chest With Contrast Exam date and time: 11/15/2024 1:36 PM Age: 49 years old Clinical indication: Dyspnea; Additional info: Elevated troponin, elevated d-dimer, dyspnea, [place] TECHNIQUE: Imaging protocol: Computed tomographic angiography of the chest with contrast. Exam focused on the arteries. 3D rendering (Not supervised by radiologist): MIP and/or 3D reconstructed images were created by the technologist. Radiation optimization: All CT scans at this facility use at least one of these dose optimization techniques: automated exposure control; mA and/or kV adjustment per patient size (includes targeted exams where dose is matched to clinical indication); or iterative reconstruction. Contrast material: ISOVUE; Contrast volume: 70 ml; Contrast route: INTRAVENOUS (IV); COMPARISON: CR XR CHEST PORTABLE 11/15/2024 12:47 PM FINDINGS: Limitations: Study is technically limited due to motion artifact. Pulmonary arteries: Main pulmonary trunk, right and left pulmonary arteries, interlobar branches and 1st order segmental branches are adequately opacified without filling defects or other evidence of acute pulmonary embolism. However more distal subsegmental branches cannot be adequately assessed due to technical limitations of the study. Aorta: Unremarkable. No aortic aneurysm. No aortic dissection. Lungs: COPD with diffuse upper lobe emphysematous changes. 2.5 cm thick-walled cavity right upper lobe with some adjacent bandlike areas of subsegmental atelectasis and right apical pleural thickening. Findings may be due to chronic fibro cavitary changes would need follow-up for clarification. There is a 2nd small cavitating nodular opacity above the right hilum measuring 1.5 cm in greatest dimension there may also be chronic in nature. There are some scattered indistinct small nodular ground-glass opacities at the lung bases likely secondary to bronchiolitis.. Pleural spaces: See Lungs finding. Heart: Unremarkable. No cardiomegaly. No pericardial effusion. No coronary artery calcifications detected. Mediastinal space: Granulomatous calcifications within the mediastinum, chronic. Mild mediastinal and hilar lymphadenopathy that may also be longstanding. Lymph nodes: See Mediastinal space finding. Bones/joints: Unremarkable. No acute fracture. Soft tissues: Unremarkable. IMPRESSION: 1. Technically limited but negative CT angiogram of the chest. No evidence of acute pulmonary embolism to major branches of the pulmonary vascular tree. 2. COPD with upper lobe emphysematous changes. 3. 2.5 cm cavitary lesion right upper lobe and smaller cavitary nodular above the right hilum that may be chronic. Recommend repeat CT chest in 3 months for continued surveillance. 4. Mild patchy bronchiolitis at the lung bases likely infectious in nature. 5. Mild mediastinal and hilar lymphadenopathy that may also be chronic and could be reassessed on follow-up exam in 3 months. COMMENTS: The presence of pulmonary emphysema on CT is an independent risk factor for lung cancer. In the absence of a history or active diagnosis of lung cancer, it is recommended that this patient with emphysema be evaluated for enrollment in a low dose CT lung cancer screening program.
[2024-11-15] MEDS: 0.9 % SODIUM CHLORIDE 50 ML VIAL IV (13:37)
[2024-11-15] MEDS: IOPAMIDOL-370 (76%);100ML BOTTLE 70 ML IV (13:38)
[2024-11-15] MEDS: SODIUM CHLORIDE 0.9% 10ML SYR (RAD ONLY) 10 ML IV (13:38)
--- NOTE | 2024-11-15 14:48 | PC.NURSE ---
Lanny Allen APRN at bedside
--- NOTE | 2024-11-15 15:05 | P.HP_ITS ---
<Statement entered by Bayron Bledsoe MD - 11/17/24 12:24> Personally evaluated the patient and agree with plan of care as outlined by the [employer]CHOOL [employer] OFFICER. History of Present Illness *Admission Date: 11/15/24 *Reason for visit:: NSTEMI, COPD exacerbation, dyspnea *History of present illness: Mr. Lang is a 49-year-old male presented to the emergency department today with complaints of increased shortness of breath, worse with exertion, productive cough with green-yellow sputum x 3 days, chills, fever, and weakness. He states that he has chronic lung issues and sees pulmonology at the [facility]. He wears 2 L of O2 as needed, and has been using the O2 more often. He does use albuterol inhaler and has a nebulizer that he uses on occasion. He takes methadone 80 mg daily that he gets through the [facility] from Dr. Avendano. Denies any other regular medication use. He denies chest pain, nausea, vomiting, diarrhea. Extensive cardiac and pulmonary workup was done in the emergency department, EKG showed sinus tach rate 105 bpm, CBC was unremarkable. AST was slightly elevated at 87 otherwise unremarkable CMP. D-dimer was elevated at 0.58, CTA PE protocol was ordered, and was negative for PE. Initial troponin is elevated at 0.17 and BNP elevated at 555. MARILY Munoz in the emergency department discussed need for admission with Dr. Bledsoe, decision was made for further management of patient and admission would be appropriate. [facility] Disclaimer: The information contained in this section may have been updated after the marily jung was seen, as this information can be updated by other users. Social History Smoking Status: Current every day smoker tobacco type: cigarettes packs per day: 1 second hand exposure: No alcohol intake: never substance use type: former substance user, opiates, painkillers and prescription drug current occupational status: other Travel in the last 8 weeks?: None household members: significant other housing: house caffeine: Yes Have you lived/traveled outside US in past 30 days?: No Contact w/someone who lives/traveled outside US past 30 days?: No Exposure to someone with infectious disease in past 14 days?: No Do you have a fever (greater than 100.4 F or 38 C)?: No Have you tested positive for COVID-19?: No Exposed to someone with COVID-19 in past 14 days?: No Do you have a sore throat?: No Do you have a cough?: Yes Do you have any weakness?: No Do you have any diarrhea?: No Are you experiencing any unusual bleeding?: No Do you have any muscle aches/pain?: No Do you have any abdominal pain?: No Are you experiencing loss of taste or smell?: No Other Medical History Have you received the Flu Vaccine for this season: Yes Have you received the Pneumonia Vaccine: No Review of Systems Constitutional Constitutional: Reports fatigue, Reports poor appetite, Reports night sweats, Reports weakness and Reports weight loss ENT Ears, Nose, Mouth, and Throat: Denies vertigo *Cardiovascular Cardiovascular: Reports dyspnea, Reports dyspnea on exertion, Reports palpitations and Reports rapid heart rate *Respiratory Respiratory: Reports change in phlegm color, Reports cough, Reports dyspnea and Reports dyspnea on exertion *Gastrointestinal Gastrointestinal: Denies abdominal pain, Denies melena, Denies nausea and Denies vomiting *Genitourinary Genitourinary: Denies dysuria *Musculoskeletal Musculoskeletal: Reports atrophy *Neurologic Neurologic: Denies confusion, Denies vertigo and Reports weakness Psychiatric Psychiatric: Reports abnormal sleep pattern, Reports change in appetite, Denies confusion and Denies suicidal ideation Endocrine Endocrine: Reports fatigue and Reports palpitations Meds Home Medications and Allergies Home Medications ?Medication ?Instructions ?Recorded ?Confirmed ?Type albuterol sulfate 90 mcg/actuation See Rx Instructions .Route .COMPLEX 07/08/24 07/08/24 History aerosol inhaler doxycycline hyclate 100 mg capsule 100 mg PO BID 10 da ys #20 caps 07/08/24 Rx fluticasone fur. 100 mcg-umeclid See Rx Instructions . Route .COMPLEX 07/08/24 07/08/24 History 62.5 mcg-vilant 25 mcg inhalat.powder (Trelegy Ellipta) methadone 10 mg tablet See Rx Instructions .Route . COMPLEX 07/08/24 07/08/24 History prednisone 50 mg tablet 50 mg PO DAILY 5 days #5 tab s 07/08/24 Rx New Prescriptions to Start Prescriptions: Allergies Allergy/AdvReac Type Severity Reaction Status Date / Time No Known Allergies Allergy Verified 11/15/24 12:43 Exam Data for Last 24 hours Vital signs and Labs for Last 24 Hours: Temp Pulse Resp BP Pulse Ox O2 Del Method 98.8 F 99 H 18 119/84 94 L Room Air 11/15/24 12:38 11/15/24 15:00 11/15/24 14:30 11/15/24 15:00 11/15/24 15:00 11/15/24 15:00 Laboratory Results - last 24 hr 11/15/24 12:45: WBC 8.1, RBC 4.82, Hgb 14.0 L, Hct 42.4, MCV 88.0, MCH 29.0, MCHC 33.0, RDW 12.4, Plt Count 167, MPV 9.9, Neut % (Auto) 83.2 H, Lymph % (Auto) 9.9 L, [place] % (Auto) 6.4, Eos % (Auto) 0.0 L, Baso % (Auto) 0.4, Neut # (Auto) 6.8, Lymph # (Auto) 0.8, [place]gs # (Auto) 0.5, Eos # (Auto) 0.0, Baso # (Auto) 0.0, D-Dimer 0.58 H, Sodium 137, Potassium 3.5, Chloride 99, Carbon Dioxide 36 H, Anion Gap 5.5, BUN 4 L, Creatinine 0.70, Estimated Creat Clear 104, Estimated GFR 119, Est GFR ( Amer) 144, Glucose 110 H, Calcium 8.9, Magnesium 2.0, Total Bilirubin 0.4, AST 87 H, ALT 31, Alkaline Phosphatase 95, Troponin I 0.17 H, NT-Pro-B Natriuret Pep 555 H, Total Protein 7.2, Albumin 3.9, Globulin 3.3 H, Albumin/Globulin Ratio 1.2 11/15/24 12:55: SARS-CoV-2 (PCR) Not detected, Influenza A Untype (PCR) Not detected, Influenza Type B (PCR) Not detected I & O for Last 24 hours: Intake & Output 11/12/24 11/13/24 11/14/24 11/15/24 23:59 23:59 23:59 23:59 Weight 58.967 kg Constitutional Constitutional: mild distress and thin *Routine HEENT Exam Head: Present normocephalic Eye: Present EOMI ENT: Present mucous membranes moist *Routine Neck Exam Neck: Present full ROM; Absent JVD *Routine Respiratory Exam Respiratory: Present stridor, wheezes and diminished air movement; Absent able to speak in complete sentences *Routine Cardiovascular Exam Cardiovascular: Present Normal S1, Normal S2 and tachycardia; Absent murmur *Routine Abdominal Exam Abdominal: Present soft and normoactive bowel sounds; Absent tenderness *Routine Rectal Exam Rectal:: deferred *Routine Genitalia Exam Genitalia:: deferred *Routine Extremities Exam Extremities: Present full ROM and pulses intact; Absent edema *Routine Skin Exam Skin: Present intact and dry *Routine Neurological Exam Neurological: Present alert and oriented X3 Assessment and Plan *Assessment and plan (1) Dyspnea on exertion: Status: Acute Category: Medical Code(s): R06.09 - Other forms of dyspnea (2) Acute exacerbation of chronic obstructive pulmonary disease: Status: Acute Category: Medical Code(s): J44.1 - Chronic obstructive pulmonary disease with (acute) exacerbation (3) Elevated troponin: Status: Acute Category: Medical Code(s): R79.89 - Other specified abnormal findings of blood chemistry (4) NSTEMI (non-ST elevated myocardial infarction): Status: Acute Category: Medical Code(s): I21.4 - Non-ST elevation (NSTEMI) myocardial infarction (5) Tobacco use disorder: Status: Acute Category: Medical Code(s): F17.200 - Nicotine dependence, unspecified, uncomplicated (6) Opioid use disorder in remission: Status: Acute Category: Medical Code(s): F11.91 - Opioid use, unspecified, in remission (7) Unintentional weight loss: Status: Acute Category: Medical Code(s): R63.4 - Abnormal weight loss Plan Mr. Lang is a 49-year-old male, admitted to the hospital for further management of severe COPD exacerbation and NSTEMI. After discussion with the ED physician, agreed to admit patient for further management. Cardiology and pulmonology consulted. #Dyspnea on exertion #Acute COPD exacerbation ?Patient has history of COPD, wears 2 L O2 as needed, uses albuterol inhaler and nebulizer as needed. He sees pulmonology states he saw them approximately 1- 1/2 months ago. Complains of worsening shortness of breath, dyspnea on exertion, coughing with green-yellow sputum production, suspected fevers, with night sweats, and weakness. ?Pulmonology consulted, DuoNebs and Solu-Medrol 125 mg IV once given in the ER. Will continue DuoNebs, start Pulmicort twice daily and prednisone 40 mg daily. ?D-dimer was slightly elevated at 0.58. Chest CTA was performed no evidence of pulmonary embolism embolism was noted. I independently interpreted chest x-ray, no pneumonia noted COPD evident, no active disease. ?Patient placed on continuous pulse oximetry. O2 as needed, for O2 higher than 90%. ?Rapid PCR was ordered in the emergency room, was negative COVID and flu. Full respiratory panel pending. #NSTEMI #Elevated troponin ?Upon assessment patient denies chest pain. Denies any history of CAD, hypertension, hyperlipidemia. Unknown family history. Patient does not take any heart related medication. patient denies irregular heartbeats or palpitation, states he feels like his heart is beating very fast especially when he is short of breath. ? Initial troponin was 0.17. EKG shows sinus tachycardia, rate 105 bpm. No evidence of STEMI noted. ?Serial troponins ordered. will monitor for changes ?? WBC is 8.1, sodium 137, potassium 3.5. Kidney function is normal with a creatinine of 0.7 and clearance of 104. AST slightly elevated at 87. CBC, CMP, lipid panel, TSH, magnesium ordered for the a.m. ?Cardiology consulted, order for echo placed. ?Patient placed on continuous telemetry for monitoring. ?Ordered metoprolol 25 mg daily, aspirin 81 mg daily, and atorvastatin 40 mg at bedtime due to suspected CAD. #Unintentional weight loss ?Patient states that he has lost about 50 pounds in the last year. States that he was about 180 pounds last summer, is now 130 pounds. Patient states that this was unintentional, he does smoke marijuana which he states helps with his appetite. He relates the loss of appetite to shortness of breath. Will discuss with pulm. #Tobacco use disorder #Opioid use disorder in remission ? Patient states he smokes occasionally. Nicotine patches ordered as needed. ?Patient is prescribed methadone 80 mg daily through [facility], Dr. Avendano. Will continue home medication. ?Smoking cessation information given and discussed. Full code Cardiac diet, n.p.o. at midnight Ambulate as tolerated Lovenox 40 mg subcu daily for VTE prophylaxis
--- NOTE | 2024-11-15 15:05 | PC.NURSE ---
Called report to Oleksandr Thomas RN on Med/Surg
[2024-11-15] MEDS: ENOXAPARIN 100MG/ML SYRINGE 60 MG SUBCUT (15:11)
--- NOTE | 2024-11-15 15:20 | PC.NURSE ---
Pt leaving to go to [facility] for admit.
[2024-11-15 15:41] LABS: Adenovirus,PCR Not Detected (NotDetected); Bordetella Pertussis Not Detected (NotDetected); Chlamydophila Pneumoniae, PCR Not Detected (NotDetected); Coronavirus 19, PCR Not Detected (NotDetected); Coronavirus 229E Not Detected (NotDetected); Coronavirus NL63 Not Detected (NotDetected); Coronavirus OC43 Not Detected (NotDetected); Coronovirus HKU1,PCR Not Detected (NotDetected); Human Metapneumovirus Not Detected (NotDetected); Influenza A, PCR Not Detected (NotDetected); Influenza AH1, 2009 Not Detected (NotDetected); Influenza AH1, PCR Not Detected (NotDetected); Influenza AH3,PCR Not Detected (NotDetected); Influenza B, PCR Not Detected (NotDetected); Mycoplasma Pneumoniae, PCR Not Detected (NotDetected); Parainfluenza 1, PCR Not Detected (NotDetected); Parainfluenza 2, PCR Not Detected (NotDetected); Parainfluenza 4, PCR Not Detected (NotDetected); Respiratory Syncytial Virus Not Detected (NotDetected); Rhinovirus/Enterovirus Not Detected (NotDetected)
[2024-11-15] MEDS: POTASSIUM CHLORIDE 20MEQ TAB 40 MEQ PO ×2 (16:41→20:59)
[2024-11-15 17:06] LABS: Troponin I 0.17 ng/ml (0.00-0.034)
[2024-11-15 17:34] LABS: Parainfluenza 3, PCR Detected (NotDetected)
[2024-11-15 19:17] LABS: Troponin I 0.13 ng/ml (0.00-0.034)
[2024-11-15 19:27] LABS: Benzodiazepines Screen,Urine Negative ng/ml (<200)
[2024-11-15 19:28] LABS: Amphetamine/Metha Screen,Urine Negative ng/ml (<1000); Barbiturates Screen,Urine Negative ng/ml (<200)
[2024-11-15 19:29] LABS: Cannabinoid Screen,Urine Positive ng/ml (<50)
[2024-11-15 19:30] LABS: Cocaine Screen,Urine Negative ng/ml (<300); Methadone Screen,Urine Positive ng/ml (<300)
[2024-11-15 19:31] LABS: Opiate Screen,Urine Negative ng/ml (<300)
[2024-11-15 19:32] LABS: Phencyclidine Screen,Urine Negative ng/ml (<25)
[2024-11-15] MEDS: ATORVASTATIN 40MG TABLET 40 MG PO (21:05)
[2024-11-16] VITALS: BP 107/73; PULSE 80; PULSE 90; RESP 16; TEMP 36.4; O2SAT 97
[2024-11-16] MEDS: ACETAMINOPHEN 325MG TAB 650 MG PO (03:11)
[2024-11-16] MEDS: NICOTINE 21MG/24HR PATCH 21 MG TD (03:12)
[2024-11-16 04:00] VITALS: BP 129/73; PULSE 91; RESP 12; TEMP 36.7; O2SAT 96; BMI 18.8
[2024-11-16] MEDS: IPRATROPIUM/ALBUTEROL 3 ML NEB IH (06:03)
[2024-11-16 06:04] VITALS: PULSE 75; PULSE 78; O2SAT 91
--- NOTE | 2024-11-16 06:37 | PC.NURSE ---
Pt. was admitted for COPD exacerbation, and elevated troponin levels. Pt. alert and orientated x 4. Pt. on oxygen 2 liters per nasal cannula. Pt, lung sound with inspiratory/expiatory wheezes, and some crackles. Pt. refused NEb treatments and Inhalers yesterday. around 0330 Pt. awake, up and coughing a lot. Lungs very tight and wheezy, Resp notified and Pt. recieved a Neb treatment with some relief. Pt. c/o back pain . Medicated for pain. Pt. has not slept well this shift. Pt. NPO after midnight. Pt. up independently to bathroom. Personal items and call [place] in reach. safety measures in place.
--- NOTE | 2024-11-16 07:02 | PC.NURSE ---
Pt. requested Methadone. Methadone is shceduled at 0900. I explained to the patient the times dose and he stated that he understood.
[2024-11-16 07:08] LABS: Albumin Level 3.9 g/dl (3.5-5.0); Chloride 105 mmol/L (98-107)
[2024-11-16 07:09] LABS: Basophils % 0.1 % (0.1-2.0); Hematocrit 43.2 % (42.0-52.0); Hemoglobin 14.5 g/dL (14.1-18.0); Immature Granulocytes # 0.02 10^3uL; Immature Granulocytes % 0.2 %; Lymphocytes # 1.3 K/mm3 (0.7-4.5); Lymphocytes % 15.8 % (10-50); Mean Corpuscular HGB Conc 33.6 g/dL (31.8-35.4); Mean Corpuscular Hemoglobin 29.5 pg (27.0-31.2); Mean Platelet Volume 10.5 fl (7.4-10.4); Monocytes # 0.7 K/mm3 (0.1-1.0); Monocytes % 7.9 % (1.7-9.3); Neutrophils # 6.4 K/mm3 (1.8-7.8); Nucleated Red Blood Cells # 0 10^3/uL; Nucleated Red Blood Cells % 0 %; Platelet Count 187 K/mm3 (142-424); Potassium 4.7 mmoL/L (3.5-5.1); Red Blood Count 4.91 M/mm3 (4.60-6.20); Red Cell Distribution Width 12.5 % (11.5-17.5); Red Cell Distribution Width-SD 40.6 fL; Sodium 141 mmol/L (136-145); White Blood Count 8.5 K/mm3 (4.8-10.8)
[2024-11-16 07:11] LABS: Alanine Aminotransferase 33 U/L (12-78); Alkaline Phosphatase 101 U/L (38-126); Anion Gap 6.7 mEq/L (5-15); Aspartate Amino Transferase 76 U/L (17-59); Bilirubin,Total 0.2 mg/dl (0.2-1.3); Blood Urea Nitrogen 8 mg/dl (9-20); Carbon Dioxide 34 mmol/L (22.0-30.0); Creatinine Clearance Estimated 123 mL/min (50-200); Estimated Glomerular Filt Rate 142 ml/min (>60); GFR (African American) 172 ML/MIN (>60)
[2024-11-16 07:12] LABS: Albumin/Globulin Ratio 1.2 (1.1-1.8); Calcium 9.2 mg/dl (8.4-10.2); Chol/HDL Ratio 4.6 (1-3.5); Cholesterol 162 mg/dl (140-200); Globulin 3.3 g/dL (1.3-3.2); Glucose 107 mg/dl (74-100); HDL Cholesterol 35 mg/dl (40-60); Total Protein,Serum 7.2 g/dl (6.3-8.2); Triglycerides 83 mg/dl (30-150); VLDL Cholesterol 17 mg/dL (0-40)
[2024-11-16 07:43] LABS: Thyroid Stimulating Hormone 0.64 uIU/mL (0.465-4.68)
[2024-11-16 08:00] VITALS: BP 121/81; PULSE 70; PULSE 85; RESP 18; TEMP 36.6; O2SAT 97
--- NOTE | 2024-11-16 08:15 | P.CONPHA_ITS ---
Pharmacy Intervention Comments: VERIFIED HOME MEDICATION LIST WITH OUTPATIENT PHARMACY AND [facility]
--- NOTE | 2024-11-16 08:15 | HMH.PHAINT1 ---
Pharmacy Intervention Comments: VERIFIED HOME MEDICATION LIST WITH OUTPATIENT PHARMACY AND [facility]
[2024-11-16] MEDS: predniSONE 20MG TAB 40 MG PO (08:32)
[2024-11-16] MEDS: METOPROLOL SUCCINATE XL 25MG TABLET 25 MG PO (08:32)
[2024-11-16] MEDS: ASPIRIN 81MG CHEWABLE TABLET 81 MG PO (08:33)
[2024-11-16] MEDS: METHADONE 10MG TABLET 80 MG PO (08:35)
[2024-11-16 08:56] LABS: Magnesium 2.1 mg/dl (1.6-2.3)
--- NOTE | 2024-11-16 09:21 | P.CONS_ITS ---
History of Present Illness History of present illness: Mr. Lang is a 49-year-old male presented current smoker greater than [id number] smoking history carries a diagnosis of COPD to an outside facility worsening respiratory distress cough and productive phlegm, currently following with pulmonary at [facility] and was transferred to [facility] for further evaluation and management. [facility] Disclaimer: The information contained in this section may have been updated after the patient was seen, as this information can be updated by other users. Medical History (Updated 11/16/24 @ 12:20 by Re Orr MD) Mediastinal lymphadenopathy Hilar lymphadenopathy Cavitary lesion of lung Opioid use disorder in remission Parainfluenza Chronic obstructive pulmonary disease No significant past medical history No significant past medical history Family History (Updated 11/15/24 @ 16:16 by Pradip Lindquist RN) Other No significant family history Social History Smoking Status: Current every day smoker tobacco type: cigarettes packs per day: 1 second hand exposure: No alcohol intake: never substance use type: former substance user, opiates, painkillers and prescription drug current occupational status: other Travel in the last 8 weeks?: None household members: significant other housing: house caffeine: Yes Have you lived/traveled outside US in past 30 days?: No Contact w/someone who lives/traveled outside US past 30 days?: No Exposure to someone with infectious disease in past 14 days?: No Do you have a fever (greater than 100.4 F or 38 C)?: No Have you tested positive for COVID-19?: No Exposed to someone with COVID-19 in past 14 days?: No Do you have a sore throat?: No Do you have a cough?: Yes Do you have any weakness?: No Do you have any diarrhea?: No Are you experiencing any unusual bleeding?: No Do you have any muscle aches/pain?: No Do you have any abdominal pain?: No Are you experiencing loss of taste or smell?: No Review of Systems Constitutional Constitutional: Reports fatigue and Reports weakness Eyes Eyes: Denies eye discharge, Denies dry eyes, Denies irritation and Denies itchy eyes ENT Ears, Nose, Mouth, and Throat: Denies lip swelling, Denies throat swelling and Denies vertigo *Cardiovascular Cardiovascular: Reports dyspnea and Reports dyspnea on exertion *Respiratory Respiratory: Denies change in phlegm color, Reports chest congestion, Reports cough, Reports dyspnea, Reports dyspnea on exertion, Denies excessive phlegm production, Denies hemoptysis, Denies pain on inspiration, Denies pain with cough and Reports wheezing *Gastrointestinal Gastrointestinal: Denies abdominal pain, Denies belching and Denies cramping *Musculoskeletal Musculoskeletal: Reports back pain, Reports myalgias and Reports other (No small joint swelling or Pain) *Neurologic Neurologic: Denies confusion, Denies vertigo and Reports weakness Psychiatric Psychiatric: Denies confusion Endocrine Endocrine: Reports fatigue and Denies heat intolerance Hematologic/Lymphatic Hematologic/Lymphatic: Denies easy bleeding and Denies lymphadenopathy Allergic/Immunologic Allergic/Immunologic: Denies itchy eyes, Denies lip swelling, Denies throat swelling and Reports wheezing Pulmonology Exam Inpatient Vital signs and Labs for Last 24 Hours: Temp Pulse Resp BP Pulse Ox O2 Del Method O2 Flow Rate 97.9 F 85 18 121/81 97 Room Air 2 11/16/24 08:00 11/16/24 08:00 11/16/24 08:00 11/16/24 08:00 11/16/24 08:00 11/16/24 08:09 11/16/24 08:00 Laboratory Results - last 24 hr 11/15/24 12:45: WBC 8.1, RBC 4.82, Hgb 14.0 L, Hct 42.4, MCV 88.0, MCH 29.0, MCHC 33.0, RDW 12.4, Plt Count 167, MPV 9.9, Neut % (Auto) 83.2 H, Lymph % (Auto) 9.9 L, Page % (Auto) 6.4, Eos % (Auto) 0.0 L, Baso % (Auto) 0.4, Neut # (Auto) 6.8, Lymph # (Auto) 0.8, Page # (Auto) 0.5, Eos # (Auto) 0.0, Baso # (Auto) 0.0, D-Dimer 0.58 H, Sodium 137, Potassium 3.5, Chloride 99, Carbon Dioxide 36 H, Anion Gap 5.5, BUN 4 L, Creatinine 0.70, Estimated Creat Clear 104, Estimated GFR 119, Est GFR ( Amer) 144, Glucose 110 H, Calcium 8.9, Magnesium 2.0, Total Bilirubin 0.4, AST 87 H, ALT 31, Alkaline Phosphatase 95, T roponin I 0.17 H, NT-Pro-B Natriuret Pep 555 H, Total Protein 7.2, Albumin 3.9, Globulin 3.3 H, Albumin/Globulin Ratio 1.2 11/15/24 12:55: SARS-CoV-2 (PCR) Not detected, Influenza A Untype (PCR) Not detected, Influenza Type B (PCR) Not detected 11/15/24 15:34: Chlamy pneumoniae PCR Not detected, Adenovirus (PCR) Not detected, B. pertussis DNA (PCR) Not detected, Coronavirus OC43 (PCR) Not detected, Coronavirus HKU1 (PCR) Not detected, Coronavirus 229E (PCR) Not detected, SARS-CoV-2 (PCR) Not detected, Coronavirus NL63 (PCR) Not detected, Human Metapneumovir PCR Not detected, Influenza A (H1) PCR Not detected, Influ A (H1N1/09) PCR Not detected, Influenza A (H3) PCR Not detected, Influenza Type A (PCR) Not detected, Influenza Type B (PCR) Not detected, M. pneumoniae (PCR) Not detected, Parainfluenza 1 (PCR) Not detected, Parainfluenza 2 (PCR) Not detected, Parainfluenza 3 (PCR) Detected A, Parainfluenza 4 (PCR) Not detected, RSV (PCR) Not detected, Entero/Rhino (PCR) Not detected 11/15/24 16:15: Troponin I 0.17 H 11/15/24 18:15: Troponin I 0.13 H 11/15/24 19:02: Urine Opiates Screen Negative, Urine Methadone Screen Positive H , Ur Barbituates Screen Negative, Ur Phencyclidine Scrn Negative, Ur Amphetamines Screen Negative, U Benzodiazepines Scrn Negative, Urine Cocaine Screen Negative, U Marijuana (THC) Screen Positive H 11/16/24 06:20: WBC 8.5, RBC 4.91, Hgb 14.5, Hct 43.2, MCV 88.0, MCH 29.5, MCHC 33.6, RDW 12.5, Plt Count 187, MPV 10.5 H, Neut % (Auto) 76.0, Lymph % (Auto) 15.8, Page % (Auto) 7.9, Eos % (Auto) 0.0 L, Baso % (Auto) 0.1, Neut # (Auto) 6.4, Lymph # (Auto) 1.3, Page # (Auto) 0.7, Eos # (Auto) 0.0, Baso # (Auto) 0.0, Sodium 141, Potassium 4.7 D, Chloride 105, Carbon Dioxide 34 H, Anion Gap 6.7, BUN 8 L D, Creatinine 0.60 L, Estimated Creat Clear 123, Estimated GFR 142, Est GFR ( Amer) 172, Glucose 107 H, Calcium 9.2, Magnesium 2.1, Total Bilirubin 0.2, AST 76 H, ALT 33, Alkaline Phosphatase 101, Total Protein 7.2, Albumin 3.9, Globulin 3.3 H, Albumin/Globulin Ratio 1.2, Triglycerides 83, Cholesterol 162, LDL Cholesterol Direct 82.90 L, VLDL Cholesterol 17, HDL Cholesterol 35 L, Cholesterol/HDL Ratio 4.6 H, TSH 0.64 I & O for Labs for Last 24 Hours: Intake & Output 11/13/24 11/14/24 11/15/24 11/16/24 23:59 23:59 23:59 23:59 Intake Total 240 / 490 250 / 250 Output Total 1100 / 1100 75 / 75 Balance -860 / -610 175 / 175 Weight 132 lb 4.8 oz 131 lb 11.2 oz Constitutional: Present mild distress Head: Present normocephalic and atraumatic ENT: Present normal exam, normal oropharynx and mucous membranes moist Neck: Present normal inspection and full ROM Respiratory: Present respiratory distress, normal respiratory effort and able to speak in complete sentences; Absent wheezes or diminished air movement Cardiac: Present S1/S2, Tachycardia and radial pulses present GI: Present soft and distention; Absent tenderness or guarding Skin: Present intact; Absent cyanosis or jaundice Neuro: Present alert, awake and oriented x 3 Extremities: Present normal inspection; Absent clubbing or cyanosis Psychiatric: Present normal affect and cooperative Meds Home Medications and Allergies Home Medications ?Medication ?Instructions ?Recorded ?Confirmed ?Type albuterol sulfate 90 mcg/actuation 1 puff inhalation A S DIRECTED 07/08/24 11/16/24 History aerosol inhaler methadone 10 mg tablet 80 mg PO DAILY 07/08/2411/01 History fluticasone propionate 230 1 puff inhalation BID 11/1611/16/24 History mcg-salmeterol 21 mcg/actuation HFA inhaler (Advair HFA) tiotropium bromide 2.5 1 inh inhalation DAILY 11/1611/16/24 History mcg/actuation mist for inhalation (Spiriva Respimat) New Prescriptions to Start Prescriptions: Allergies Allergy/AdvReac Type Severity Reaction Status Date / Time No Known Allergies Allergy Verified 11/15/24 12:43 Results Laboratory Findings 11/16/24 06:20 11/16/24 06:20 PT/INR, D-dimer D-Dimer 0.58 ug/mL (0.0-0.5) H 11/15/24 12:45 Abnormal lab findings: Abnormal Labs 11/15/24 11/15/24 11/15/24 12:45 15:34 16:15 Hgb 14.0 L MPV Neut % (Auto) 83.2 H Lymph % (Auto) 9.9 L Eos % (Auto) 0.0 L D-Dimer 0.58 H Carbon Dioxide 36 H BUN 4 L Creatinine Glucose 110 H AST 87 H Troponin I 0.17 H 0.17 H NT-Pro-B Natriuret Pep 555 H Globulin 3.3 H LDL Cholesterol Direct HDL Cholesterol Cholesterol/HDL Ratio Urine Methadone Screen U Marijuana (THC) Screen Parainfluenza 3 (PCR) Detected A 11/15/24 11/15/24 11/16/24 18:15 19:02 06:20 Hgb MPV 10.5 H Neut % (Auto) Lymph % (Auto) Eos % (Auto) 0.0 L D-Dimer Carbon Dioxide 34 H BUN 8 L D Creatinine 0.60 L Glucose 107 H AST 76 H Troponin I 0.13 H NT-Pro-B Natriuret Pep Globulin 3.3 H LDL Cholesterol Direct 82.90 L HDL Cholesterol 35 L Cholesterol/HDL Ratio 4.6 H Urine Methadone Screen Positive H U Marijuana (THC) Screen Positive H Parainfluenza 3 (PCR) Assessment and Plan *Assessment and plan (1) Acute exacerbation of chronic obstructive pulmonary disease: Status: Acute Category: Medical Code(s): J44.1 - Chronic obstructive pulmonary disease with (acute) exacerbation (2) Cavitary lesion of lung: Status: Acute Category: Medical Code(s): J98.4 - Other disorders of lung (3) Hilar lymphadenopathy: Status: Acute Category: Medical Code(s): R59.0 - Localized enlarged lymph nodes (4) Mediastinal lymphadenopathy: Status: Acute Category: Medical Code(s): R59.0 - Localized enlarged lymph nodes Plan Mr. Lang is a 49-year-old male presented current smoker greater than [id number] smoking history carries a diagnosis of COPD to an outside facility worsening respiratory distress cough and productive phlegm, currently following with pulmonary at [facility] and was transferred to [facility] for further evaluation and management. Afebrile. Hemodynamically stable. No evidence of leukocytosis. Patient also noted to have elevated troponins upon admission, cardiology following. Respiratory viral PCR panel positive for parainfluenza virus. Blood gas venous upon admission mild hypercarbic hypoxic respiratory failure, pH 7.38, PCO2 56.4 and PO2 of 27.9. CTA PE upon admission no pulmonary embolism. Right upper lobe nodular and cavitary lesion. Other bilateral patchy airspace disease with no dense consolidative changes. Upper lobe predominant emphysematous change. 10R noncalcified and large calcified lymphadenopathy noted at station 7. No prior imaging available for review. Currently being managed for COPD exacerbation with nebulization therapies and steroids. Not receiving antibiotics. Plan: Trelegy 100 inhaler along with DuoNebs 4 times daily as needed Prednisone 40 mg daily to complete a total of 5-day course No need for antibiotics at this point of time from pulmonary standpoint. F/U procal Follow with TB QuantiFERON sputum Gram stain culture and AFB culture sensitivities Follow up procalcitonin and CRP # Thank you for involving pulmonary in this patient care. Will continue to follow.
--- NOTE | 2024-11-16 09:53 | CT_ITS ---
APPROVED REPORT Customer Service Advisor: CLINICAL INDICATION Chest Pain TECHNIQUE Image Acquisition: A 128 slice MDCT scanner ([employer] View) was used for data acquisition. A noncontrast coronary calcium scan was performed. A CT attenuation threshold of 130 Hounsfield units (HU) was used for the detection of calcium in contiguous voxels of 1 sq mm in area to be counted as individual lesions. Bolus tracking in the ascending aorta with a threshold of 180 HU was performed. Immediately afterwards, ECG synchronized cardiac CT was then performed from the cardiac base to apex using retrospective gating with ECG tube current modulation. A total of 85 mL of Isovue 370 mg/mL contrast medium was administered at 5 mL/sec followed by a saline flush using a biphasic injection protocol. A tube voltage of 120 KVp was used. The patient received the following medications prior to the cardiac CT. 150 mg of oral metoprolol 0.4 mg of sublingual nitroglycerin The average heart rate at the time of acquisition was 64 bpm and regular. Image Reconstruction Transaxial images were reconstructed at 0.67 mm slide thickness. Data was reviewed interactively on an advanced workstation capable of 2 and 3-dimensional displays in all conventional reconstruction formats, including multiplanar reformations, maximum intensity projections, curved multiplanar reformations, and volume rendered reconstructions. When applicable, selected routine images describing the relevant coronary anatomy and pathology were saved and sent to PACS. Complications None Technical Quality Overall image quality was fair. Coronary artery opacification was adequate. Total DLP (Dose-Length Product) is 1612.9 mGy-cm. The reported value represents the total of one or more individual components during the CT acquisition of this date and at this time, and as such, the same value may appear in more than one CT report depending on the interpreting/reporting physicians. COMPARISON None FINDINGS CT Coronary Calcium Scoring LMA (Left Main Artery) = 0 LAD (Left Anterior Descending) = 35 LCX (Left Coronary Circumflex) = 10 RCA (Right Coronary Artery) = 15 Total Calcium Score = 60 using the AJ-130 method. The observed calcium score of 60 is at 82nd percentile for subjects of the same age, sex, and race/ethnicity. The interpretation of the calcium heart score is based on the following continuum*: 0 = no calcified plaque detected (risk of coronary artery disease is very low ??? less than 5%) 1-10 = calcium detected in extremely minimal levels (risk of coronary diseases is still low ??? less than 10%) 11-100 = mild levels of plaque detected with certainty (mild or minimal narrowing of heart arteries is likely) 101-400 = definite,at least moderate levels of plaque detected (relatively high risk of a heart attack within 3-5 years) >401-999 = extensive levels of plaque detected (high risk of heart attack, high levels of vascular disease are present, high likelihood of at least one significant coronary narrowing) *The calcium heart score quantifies the burden of coronary calcification/plaque in the coronary arteries. The calcium heart score is not able to evaluate the presence or burden of non-calcified (i.e. soft) plaque. There is no identifiable calcification in the aortic valve, mitral annulus or mitral valve, pericardium, or myocardium. Coronary CT Angiography The coronary arterial system is right dominant. Quantitative Stenosis Grading: Left Main (LM): The left main originates normally from the left sinus of Valsalva. The LM bifurcates into the left anterior descending artery and left circumflex artery. The LM is patent with no evidence of atherosclerosis. Left Anterior Descending (LAD) and Diagonal Branches: The LAD gives off 2 diagonal branch(es). There is mixed calcified/noncalcified plaque in the proximal LAD segment with up to 25-50% luminal stenosis. All there is no evidence of LAD-myocardial bridge. Left Circumflex (LCX) and Obtuse Marginals (OM): The LCX gives off 1 Obtuse Marginal (OM) branch(es). There is mixed calcified/noncalcified plaque in the proximal LCx segment with up to 25-50% luminal stenosis. Right Coronary Artery (RCA): The RCA originates normally from the right sinus of Valsalva. The RCA gives off a posterior descending artery (PDA) and posterolateral (PL) branches. There is mixed calcified/noncalcified plaque in the mid RCA segment, with up to 25-50% luminal stenosis. Non-Coronary Cardiac Findings: Analysis of the left ventricular (LV) structure and function was performed after 3-D reconstruction of the LV from axial images, with user-corrected automatic contouring for assessment of LV volumes and user-defined reconstruction from oblique planes for measurement of 3-D cardiac structure and function. -The left ventricle systolic function is normal. -There is no left atrial appendage filling defect. Two right pulmonary veins and two left pulmonary veins drain normally into the left atrium. -No pericardial thickening or calcification. -Central and branch pulmonary arteries in the [id number] are unremarkable. -Thoracic aorta within the visualized thoracic aortic-branches in the [id number] is unremarkable. Extracardiac Structures No significant extra-cardiac findings. Note, however, that this study is focused on the cardiac findings. IMPRESSION .-Fair image quality due to significant motion, particularly in the RCA segment. -Presence of coronary calcification with an Agatston score = 60 using the AJ-130 method. -The observed calcium score of 60 is at 82nd percentile for subjects of the same age, sex, and race/ethnicity. - Mild, nonobstructive multivessel atherosclerotic coronary disease, but no evidence of significant flow-limiting atherosclerosis of the coronary arteries. -CAD-RADS 2. Management recommendations per ACC/AHA guidelines*, as clinically appropriate. *Recommendations: CAD RADS 0: Reassurance. Consider non-atherosclerotic causes of chest pain. CAD RADS 1: Consider non-atherosclerotic causes of chest pain. Consider preventive therapy and risk factor modification. CAD RADS 2: Consider non-atherosclerotic causes of chest pain. Consider preventive therapy and risk factor modification, particularly for patients with nonobstructive plaque in multiple segments. CAD RADS 3: Consider further functional testing. Consider symptom-guided anti-ischemic and preventive pharmacotherapy as well as risk factor modification per published guideline statements. CAD RADS 4A: Consider further functional testing or invasive coronary angiography with revascularization per published guideline statements. Consider symptom-guided anti-ischemic and preventive pharmacotherapy as well as risk factor modification per published guideline statements. CAD RADS 4B: Invasive coronary angiography recommended with revascularization per published guideline statements. Consider symptom-guided anti-ischemic and preventive pharmacotherapy as well as risk factor modification per published guideline statements. CAD RADS 5: Consider invasive angiography and/or viability assessment with revascularization per published guideline statements. Consider symptom-guided anti-ischemic and preventive pharmacotherapy as well as risk factor modification per published guideline statements. CRITICAL RESULT None COMMUNICATION Per this written report The coronary and cardiac findings of this CCTA were reviewed, reported, and signed by Brian Diez MD (Owner Operator) Conclusion Electronically signed by : Deborah Diez MD 11/16/2024 18:54:47
[2024-11-16 10:10] LABS: Hemoglobin A1C 5.1 % (4.0-6.0)
--- NOTE | 2024-11-16 10:27 | HMH.ITSTN ---
spoke with nurse, said she will call back after rounds to give update
--- NOTE | 2024-11-16 10:28 | P.CONCA_ITS ---
History of Present Illness History of Present Illness Consult date: 11/16/24 Requesting physician: Presley Zaman Consult reason: shortness of breath Chief complaint: Shortness of breath History of present illness: This is a 49-year-old gentleman who presented to the emergency department with increased shortness of breath, productive cough with yellow/green sputum, chills, fever and weakness. The patient reports that he was outside in the rain and then went into the air and developed to the symptoms. He denies any chest pain or pressure. He denies any edema. He denies any nausea, vomiting, diarrhea, PND or orthopnea. The patient states that he was severely short of breath and it has significantly improved since being in the hospital. He states that he does follow with pulmonology at for his underlying lung disease and does use oxygen intermittently as needed. He states in the last several weeks he has not had to use any oxygen until this episode of shortness of breath that are occurred approximately 3 days prior to admission. He denies any cardiac issues. He did have an elevated troponin on admission as well as an elevated BNP. He does have a history of opiate use disorder now in remission, on methadone. He did test positive for parainfluenza A. PFSH [facility] [place] Disclaimer: The information contained in this section may have been updated after the patient was seen, as this information can be updated by other users. Medical History (Updated 11/16/24 @ 12:20 by Re Orr MD) Mediastinal lymphadenopathy Hilar lymphadenopathy Cavitary lesion of lung Opioid use disorder in remission Parainfluenza Chronic obstructive pulmonary disease No significant past medical history No significant past medical history Family History (Updated 11/15/24 @ 16:16 by Pradip Lindquist RN) Other No significant family history Social History Smoking Status: Current every day smoker tobacco type: cigarettes packs per day: 1 second hand exposure: No alcohol intake: never substance use type: former substance user, opiates, painkillers and prescription drug current occupational status: other Travel in the last 8 weeks?: None household members: significant other housing: house caffeine: Yes Have you lived/traveled outside [place] in past 30 days?: No Contact w/someone who lives/traveled outside [place] past 30 days?: No Exposure to someone with infectious disease in past 14 days?: No Do you have a fever (greater than 100.4 F or 38 C)?: No Have you tested positive for COVID-19?: No Exposed to someone with COVID-19 in past 14 days?: No Do you have a sore throat?: No Do you have a cough?: Yes Do you have any weakness?: No Do you have any diarrhea?: No Are you experiencing any unusual bleeding?: No Do you have any muscle aches/pain?: No Do you have any abdominal pain?: No Are you experiencing loss of taste or smell?: No Review of Systems Review of Systems Review of systems:: pertinent systems reviewed and negative unless documented below Constitutional Constitutional: Reports system reviewed and no additional complaints, except as documented, Reports chills, Reports fatigue, Reports fever(s), Reports lethargy and Reports weakness Eyes Eyes: Reports system reviewed and no additional complaints, except as documented ENT Ears, Nose, Mouth, and Throat: Reports system reviewed and no additional complaints, except as documented and Denies vertigo *Cardiovascular Cardiovascular: Reports system reviewed and no additional complaints, except as documented, Denies chest pain, Reports dyspnea and Reports dyspnea on exertion *Respiratory Respiratory: Reports system reviewed and no additional complaints, except as documented, Reports change in phlegm color, Reports chest congestion, Reports cough, Reports dyspnea, Reports dyspnea on exertion and Reports excessive phlegm production *Gastrointestinal Gastrointestinal: Reports system reviewed and no additional complaints, except as documented *Genitourinary Genitourinary: Reports system reviewed and no additional complaints, except as documented *Musculoskeletal Musculoskeletal: Reports system reviewed and no additional complaints, except as documented Integumentary/Breasts Skin/Breast: Reports system reviewed and no additional complaints, except as documented *Neurologic Neurologic: Reports system reviewed and no additional complaints, except as documented, Denies confusion, Denies vertigo and Reports weakness Psychiatric Psychiatric: Reports system reviewed and no additional complaints, except as documented and Denies confusion Endocrine Endocrine: Reports system reviewed and no additional complaints, except as documented and Reports fatigue Hematologic/Lymphatic Hematologic/Lymphatic: Reports system reviewed and no additional complaints, except as documented Allergic/Immunologic Allergic/Immunologic: Reports system reviewed and no additional complaints, except as documented Exam Data for Last 24 hours Vital signs and Labs for Last 24 Hours: Temp Pulse Resp BP Pulse Ox O2 Del Method O2 Flow Rate 97.9 F 85 18 121/81 97 Room Air 2 11/16/24 08:00 11/16/24 08:00 11/16/24 08:00 11/16/24 08:00 11/16/24 08:00 11/16/24 08:09 11/16/24 08:00 Laboratory Results - last 24 hr 11/15/24 12:45: WBC 8.1, RBC 4.82, Hgb 14.0 L, Hct 42.4, MCV 88.0, MCH 29.0, MCHC 33.0, RDW 12.4, Plt Count 167, MPV 9.9, Neut % (Auto) 83.2 H, Lymph % (Auto) 9.9 L, [place] % (Auto) 6.4, Eos % (Auto) 0.0 L, Baso % (Auto) 0.4, Neut # (Auto) 6.8, Lymph # (Auto) 0.8, [place]illingham # (Auto) 0.5, Eos # (Auto) 0.0, Baso # (Auto) 0.0, D-Dimer 0.58 H, Sodium 137, Potassium 3.5, Chloride 99, Carbon Dioxide 36 H, Anion Gap 5.5, BUN 4 L, Creatinine 0.70, Estimated Creat Clear 104, Estimated GFR 119, Est GFR ( Amer) 144, Glucose 110 H, Calcium 8.9, Magnesium 2.0, Total Bilirubin 0.4, AST 87 H, ALT 31, Alkaline Phosphatase 95, Troponin I 0.17 H, NT-Pro-B Natriuret Pep 555 H, Total Protein 7.2, Albumin 3.9, Globulin 3.3 H, Albumin/Globulin Ratio 1.2 11/15/24 12:55: SARS-CoV-2 (PCR) Not detected, Influenza A Untype (PCR) Not detected, Influenza Type B (PCR) Not detected 11/15/24 15:34: Chlamy pneumoniae PCR Not detected, Adenovirus (PCR) Not detected, B. pertussis DNA (PCR) Not detected, Coronavirus OC43 (PCR) Not detected, Coronavirus HKU1 (PCR) Not detected, Coronavirus 229E (PCR) Not detected, SARS-CoV-2 (PCR) Not detected, Coronavirus NL63 (PCR) Not detected, Human Metapneumovir PCR Not detected, Influenza A (H1) PCR Not detected, Influ A (H1N1/09) PCR Not detected, Influenza A (H3) PCR Not detected, Influenza Type A (PCR) Not detected, Influenza Type B (PCR) Not detected, M. pneumoniae (PCR) Not detected, Parainfluenza 1 (PCR) Not detected, Parainfluenza 2 (PCR) Not detected, Parainfluenza 3 (PCR) Detected A, Parainfluenza 4 (PCR) Not detected, RSV (PCR) Not detected, Entero/Rhino (PCR) Not detected 11/15/24 16:15: Troponin I 0.17 H 11/15/24 18:15: Troponin I 0.13 H 11/15/24 19:02: Urine Opiates Screen Negative, Urine Methadone Screen Positive H , Ur Barbituates Screen Negative, Ur Phencyclidine Scrn Negative, Ur Amphetamines Screen Negative, U Benzodiazepines Scrn Negative, Urine Cocaine Screen Negative, U Marijuana (THC) Screen Positive H 11/16/24 06:20: WBC 8.5, RBC 4.91, Hgb 14.5, Hct 43.2, MCV 88.0, MCH 29.5, MCHC 33.6, RDW 12.5, Plt Count 187, MPV 10.5 H, Neut % (Auto) 76.0, Lymph % (Auto) 15.8, [place] % (Auto) 7.9, Eos % (Auto) 0.0 L, Baso % (Auto) 0.1, Neut # (Auto) 6.4, Lymph # (Auto) 1.3, [place] # (Auto) 0.7, Eos # (Auto) 0.0, Baso # (Auto) 0.0, Sodium 141, Potassium 4.7 D, Chloride 105, Carbon Dioxide 34 H, Anion Gap 6.7, BUN 8 L D, Creatinine 0.60 L, Estimated Creat Clear 123, Estimated GFR 142, Est GFR ( Amer) 172, Glucose 107 H, Hemoglobin A1c 5.1, Calcium 9.2, Magnesium 2.1, Total Bilirubin 0.2, AST 76 H, ALT 33, Alkaline Phosphatase 101, Total Protein 7.2, Albumin 3.9, Globulin 3.3 H, Albumin/Globulin Ratio 1.2, Triglycerides 83, Cholesterol 162, LDL Cholesterol Direct 82.90 L, VLDL Cholesterol 17, HDL Cholesterol 35 L, Cholesterol/HDL Ratio 4.6 H, TSH 0.64 I & O for Last 24 hours: Intake & Output 11/13/24 11/14/24 11/15/24 11/16/24 23:59 23:59 23:59 23:59 Intake Total 240 / 490 250 / 250 Output Total 1100 / 1100 75 / 75 Balance -860 / -610 175 / 175 Weight 132 lb 4.8 oz 131 lb 11.2 oz Constitutional Constitutional: no acute distress and average body habitus *Routine HEENT Exam Head: Present normocephalic and atraumatic ENT: Present mucous membranes moist *Routine Neck Exam Neck: Present supple, full ROM and normal carotid upstroke; Absent JVD, carotid bruit or lymphadenopathy *Routine Respiratory Exam Respiratory: Present wheezes (Inspiratory and expiratory), normal respiratory effort, able to speak in complete sentences and symmetric chest movement *Routine Cardiovascular Exam Cardiovascular: Present RRR, Normal S1 and Normal S2; Absent murmur or gallop *Routine Abdominal Exam Abdominal: Present soft and normoactive bowel sounds; Absent tenderness, distended or organomegaly *Routine Extremities Exam Extremities: Present full ROM, pulses intact and normal capillary refill; Absent cyanosis, clubbing or edema *Routine Skin Exam Skin: Present intact and warm; Absent erythema *Routine Neurological Exam Neurological: Present alert, oriented X3 and CN II-XII intact; Absent sensory deficit or motor deficit Routine Psychiatric Exam Psychiatric: Present normal affect Meds Home Medications and Allergies Home Medications ?Medication ?Instructions ?Recorded ?Confirmed ?Type albuterol sulfate 90 mcg/actuation 1 puff inhalation A S DIRECTED 07/08/24 11/16/24 History aerosol inhaler methadone 10 mg tablet 80 mg PO DAILY 07/08/2411/01 History fluticasone propionate 230 1 puff inhalation BID 11/1611/16/24 History mcg-salmeterol 21 mcg/actuation HFA inhaler (Advair HFA) tiotropium bromide 2.5 1 inh inhalation DAILY 11/1611/16/24 History mcg/actuation mist for inhalation (Spiriva Respimat) New Prescriptions to Start Prescriptions: Allergies Allergy/AdvReac Type Severity Reaction Status Date / Time No Known Allergies Allergy Verified 11/15/24 12:43 Assessment and Plan *Assessment and plan (1) NSTEMI (non-ST elevated myocardial infarction): Status: Acute Category: Medical Code(s): I21.4 - Non-ST elevation (NSTEMI) myocardial infarction (2) Elevated troponin: Status: Acute Category: Medical Code(s): R79.89 - Other specified abnormal findings of blood chemistry (3) Acute exacerbation of chronic obstructive pulmonary disease: Status: Acute Category: Medical Code(s): J44.1 - Chronic obstructive pulmonary disease with (acute) exacerbation (4) Parainfluenza: Status: Acute Category: Medical Code(s): B34.8 - Other viral infections of unspecified site (5) Dyspnea on exertion: Status: Acute Category: Medical Code(s): R06.09 - Other forms of dyspnea (6) Tobacco use disorder: Status: Acute Category: Medical Code(s): F17.200 - Nicotine dependence, unspecified, uncomplicated (7) Opioid use disorder in remission: Status: Acute Category: Medical Code(s): F11.91 - Opioid use, unspecified, in remission Plan Plan: 1. Patient was admitted to the hospital and found to have an elevated troponin consistent with a non-STEMI. The patient was offered left cardiac catheterization today but he declined an invasive procedure at this time. Will plan to proceed with CCTA to evaluate coronary arteries due to his elevated troponin/non-STEMI and shortness of breath. 2. Will obtain echocardiogram to evaluate his LV function. 3. Continue aspirin, Lipitor and metoprolol for the non-STEMI. 4. His blood pressure is well-controlled. 5. His LDL goal is less than 55. His LDL is 82. He has been started on a statin. 6. The patient does have a COPD exacerbation. He also had an abnormal CT of the chest with a cavitary lesion and lymphadenopathy as well as bronchiolitis. Pulmonology has been consulted. Will defer. 7. The patient did test positive for parainfluenza A. Will defer to the hospitalist. 8. The patient is a former opiate user, now in remission. On methadone. He also did test positive for THC. Will defer to the hospitalist. 9. Further recommendations were made pending the patient's response to treatment the results of the CCTA and echocardiogram today. Thank you for the opportunity to help participate in the care of this patient. All recommendations and orders are per Dr. Diez.
[2024-11-16] MEDS: METOPROLOL TARTRATE 50MG TABLET PO ×2 (10:45→12:16)
[2024-11-16 11:19] VITALS: PULSE 88; RESP 19
[2024-11-16] MEDS: SODIUM CHLORIDE 3% 15ML NEB 3 ML IH (11:19)
[2024-11-16 12:00] VITALS: BP 127/90; PULSE 60; PULSE 62; RESP 18; TEMP 36.6; O2SAT 94
[2024-11-16 12:52] LABS: C-Reactive Protein 97.1 mg/L (0-4)
[2024-11-16] MEDS: 0.9 % SODIUM CHLORIDE 50 ML VIAL IV (12:57)
[2024-11-16] MEDS: IOPAMIDOL-370 (76%);100ML BOTTLE 75 ML IV (12:58)
[2024-11-16] MEDS: SODIUM CHLORIDE 0.9% 10ML SYR (RAD ONLY) 10 ML IV (12:58)
[2024-11-16 13:05] LABS: Procalcitonin 0.061 ng/mL (0.0-2.0)
--- NOTE | 2024-11-16 13:57 | P.DS_ITS ---
<Statement entered by Presley Zaman MD - 11/17/24 17:00> Rounded on patient after nurse practitioner. Personally examined and interviewed patient. Agree with exam findings and care plan as documented. General Admission date:: 11/15/24 HPI HPI HPI: Mr. Lang is a 49-year-old male presented to the emergency department today with complaints of increased shortness of breath, worse with exertion, productive cough with green-yellow sputum x 3 days, chills, fever, and weakness. He states that he has chronic lung issues and sees pulmonology at the [facility]. He wears 2 L of O2 as needed, and has been using the O2 more often. He does use albuterol inhaler and has a nebulizer that he uses on occasion. He takes methadone 80 mg daily that he gets through the [facility] from Dr. Avendano. Denies any other regular medication use. He denies chest pain, nausea, vomiting, diarrhea. Extensive cardiac and pulmonary workup was done in the emergency department, EKG showed sinus tach rate 105 bpm, CBC was unremarkable. AST was slightly elevated at 87 otherwise unremarkable CMP. D-dimer was elevated at 0.58, CTA PE protocol was ordered, and was negative for PE. Initial troponin is elevated at 0.17 and BNP elevated at 555. JOVANNA Munoz in the emergency department discussed need for admission with Dr. Bledsoe, decision was made for further management of patient and admission would be appropriate. Hospital Course Hospital Course Hospital Course: Mr. Lang is a 49-year-old male who presented to the emergency department with worsening shortness of breath, fever, weakness. He was evaluated in the emergency department and found to have elevated troponin. He was admitted for NSTEMI and COPD exacerbation. Cardiology and pulmonology were consulted. A full respiratory panel was performed and patient tested positive for parainfluenza. Serial troponins were 0.17, 0.17, 0.13. BNP slightly elevated at 555. #COPD exacerbation #Dyspnea with exertion #Parainfluenza ?Patient sees pulmonology and wears 2 L of O2 as needed, patient does have a known history of COPD and uses an albuterol inhaler as needed. DuoNebs, prednisone 40 mg, and Pulmicort were started. Chest CTA was ordered and no evidence of PE was noted. Chest x-ray was negative for pneumonia. ?Pulmonology saw the patient today, patient to start Trelegy inhaler and continue DuoNebs as needed at home 5-day course of prednisone 40 mg. Antibiotics are not indicated. Pulmonology did order a TB QuantiFERON and sputum, which is pending. Discharge patient with prednisone 40 mg total 5 days. ?Pulmonology follow-up made prior to discharge. Patient does see pulmonology, discussed with patient coming to see pulmonology here at [facility] due to distance, he would like appointment made prior to discharge to follow-up with Dr. Orr #NSTEMI ?Cardiology consulted on the patient, lipid panel negative, patient is vital signs have been normotensive, patient denies chest pain. Patient declines heart cath, agreeable to CCTA. ? Echocardiogram shows LVEF 55%, CCTA shows mild disease. Recommendations to follow-up at discharge. ?Patient currently on baby aspirin, beta-rama, and statin therapy. ?Discharged with aspirin 81 mg, metoprolol 25 mg daily, Lipitor 40 mg daily. ?Cardiology follow-up made prior to discharge. #Opioid use disorder in remission ?Patient to continue methadone 80 mg daily. Total time spent on discharge 32 minutes in counseling, documentation, chart review, and direct care with patient Exam Data for Last 24 hours Vital signs and Labs for Last 24 Hours: Temp Pulse Resp BP Pulse Ox O2 Del Method O2 Flow Rate 97.9 F 88 19 121/81 97 Room Air 2 11/16/24 08:00 11/16/24 11:19 11/16/24 11:19 11/16/24 08:00 11/16/24 08:00 11/16/24 12:40 11/16/24 08:00 Laboratory Results - last 24 hr 11/15/24 15:34: Chlamy pneumoniae PCR Not detected, Adenovirus (PCR) Not detected, B. pertussis DNA (PCR) Not detected, Coronavirus OC43 (PCR) Not detected, Coronavirus HKU1 (PCR) Not detected, Coronavirus 229E (PCR) Not detected, SARS-CoV-2 (PCR) Not detected, Coronavirus NL63 (PCR) Not detected, Human Metapneumovir PCR Not detected, Influenza A (H1) PCR Not detected, Influ A (H1N1/09) PCR Not detected, Influenza A (H3) PCR Not detected, Influenza Type A (PCR) Not detected, Influenza Type B (PCR) Not detected, M. pneumoniae (PCR) Not detected, Parainfluenza 1 (PCR) Not detected, Parainfluenza 2 (PCR) Not detected, Parainfluenza 3 (PCR) Detected A, Parainfluenza 4 (PCR) Not detected, RSV (PCR) Not detected, Entero/Rhino (PCR) Not detected 11/15/24 16:15: Troponin I 0.17 H 11/15/24 18:15: Troponin I 0.13 H 11/15/24 19:02: Urine Opiates Screen Negative, Urine Methadone Screen Positive H , Ur Barbituates Screen Negative, Ur Phencyclidine Scrn Negative, Ur Amphetamines Screen Negative, U Benzodiazepines Scrn Negative, Urine Cocaine Screen Negative, U Marijuana (THC) Screen Positive H 11/16/24 06:20: WBC 8.5, RBC 4.91, Hgb 14.5, Hct 43.2, MCV 88.0, MCH 29.5, MCHC 33.6, RDW 12.5, Plt Count 187, MPV 10.5 H, Neut % (Auto) 76.0, Lymph % (Auto) 15.8, [place] % (Auto) 7.9, Eos % (Auto) 0.0 L, Baso % (Auto) 0.1, Neut # (Auto) 6.4, Lymph # (Auto) 1.3, [place] # (Auto) 0.7, Eos # (Auto) 0.0, Baso # (Auto) 0.0, Sodium 141, Potassium 4.7 D, Chloride 105, Carbon Dioxide 34 H, Anion Gap 6.7, BUN 8 L D, Creatinine 0.60 L, Estimated Creat Clear 123, Estimated GFR 142, Est GFR ( Amer) 172, Glucose 107 H, Hemoglobin A1c 5.1, Calcium 9.2, Magnesium 2.1, Total Bilirubin 0.2, AST 76 H, ALT 33, Alkaline Phosphatase 101, C-Reactive Protein 97.1 H, Total Protein 7.2, Albumin 3.9, Globulin 3.3 H, Albumin/Globulin Ratio 1.2, Triglycerides 83, Cholesterol 162, LDL Cholesterol Direct 82.90 L, VLDL Cholesterol 17, HDL Cholesterol 35 L, Cholesterol/HDL Ratio 4.6 H, Procalcitonin 0.061, TSH 0.64 I & O for Last 24 hours: Intake & Output 11/13/24 11/14/24 11/15/24 11/16/24 23:59 23:59 23:59 23:59 Intake Total 240 / 490 250 / 250 Output Total 1100 / 1100 75 / 75 Balance -860 / -610 175 / 175 Weight 60.01 kg 59.738 kg Results Data Completed and Pending Labs on day of discharge: Labs from last 24 hours 11/16/24 11/15/24 11/15/24 06:20 19:02 18:15 WBC 8.5 RBC 4.91 Hgb 14.5 Hct 43.2 MCV 88.0 MCH 29.5 MCHC 33.6 RDW 12.5 Plt Count 187 MPV 10.5 H Neut % (Auto) 76.0 Lymph % (Auto) 15.8 [place] % (Auto) 7.9 Eos % (Auto) 0.0 L Baso % (Auto) 0.1 Neut # (Auto) 6.4 Lymph # (Auto) 1.3 [place] # (Auto) 0.7 Eos # (Auto) 0.0 Baso # (Auto) 0.0 Sodium 141 Potassium 4.7 D Chloride 105 Carbon Dioxide 34 H Anion Gap 6.7 BUN 8 L D Creatinine 0.60 L Estimated Creat Clear 123 Estimated GFR 142 Est GFR ( Amer) 172 Glucose 107 H Hemoglobin A1c 5.1 Calcium 9.2 Magnesium 2.1 Total Bilirubin 0.2 AST 76 H ALT 33 Alkaline Phosphatase 101 Troponin I 0.13 H C-Reactive Protein 97.1 H Total Protein 7.2 Albumin 3.9 Globulin 3.3 H Albumin/Globulin Ratio 1.2 Triglycerides 83 Cholesterol 162 LDL Cholesterol Direct 82.90 L VLDL Cholesterol 17 HDL Cholesterol 35 L Cholesterol/HDL Ratio 4.6 H Procalcitonin 0.061 TSH 0.64 Urine Opiates Screen Negative Urine Methadone Screen Positive H Ur Barbituates Screen Negative Ur Phencyclidine Scrn Negative Ur Amphetamines Screen Negative U Benzodiazepines Scrn Negative Urine Cocaine Screen Negative U Marijuana (THC) Screen Positive H Chlamy pneumoniae PCR Adenovirus (PCR) B. pertussis DNA (PCR) Coronavirus OC43 (PCR) Coronavirus HKU1 (PCR) Coronavirus 229E (PCR) SARS-CoV-2 (PCR) Coronavirus NL63 (PCR) Human Metapneumovir PCR Influenza A (H1) PCR Influ A (H1N1/09) PCR Influenza A (H3) PCR Influenza Type A (PCR) Influenza Type B (PCR) M. pneumoniae (PCR) Parainfluenza 1 (PCR) Parainfluenza 2 (PCR) Parainfluenza 3 (PCR) Parainfluenza 4 (PCR) RSV (PCR) Entero/Rhino (PCR) 11/15/24 11/15/24 16:15 15:34 WBC RBC Hgb Hct MCV MCH MCHC RDW Plt Count MPV Neut % (Auto) Lymph % (Auto) [place] % (Auto) Eos % (Auto) Baso % (Auto) Neut # (Auto) Lymph # (Auto) [place] # (Auto) Eos # (Auto) Baso # (Auto) Sodium Potassium Chloride Carbon Dioxide Anion Gap BUN Creatinine Estimated Creat Clear Estimated GFR Est GFR ( Amer) Glucose Hemoglobin A1c Calcium Magnesium Total Bilirubin AST ALT Alkaline Phosphatase Troponin I 0.17 H C-Reactive Protein Total Protein Albumin Globulin Albumin/Globulin Ratio Triglycerides Cholesterol LDL Cholesterol Direct VLDL Cholesterol HDL Cholesterol Cholesterol/HDL Ratio Procalcitonin TSH Urine Opiates Screen Urine Methadone Screen Ur Barbituates Screen Ur Phencyclidine Scrn Ur Amphetamines Screen U Benzodiazepines Scrn Urine Cocaine Screen U Marijuana (THC) Screen Chlamy pneumoniae PCR Not detected Adenovirus (PCR) Not detected B. pertussis DNA (PCR) Not detected Coronavirus OC43 (PCR) Not detected Coronavirus HKU1 (PCR) Not detected Coronavirus 229E (PCR) Not detected SARS-CoV-2 (PCR) Not detected Coronavirus NL63 (PCR) Not detected Human Metapneumovir PCR Not detected Influenza A (H1) PCR Not detected Influ A (H1N1/09) PCR Not detected Influenza A (H3) PCR Not detected Influenza Type A (PCR) Not detected Influenza Type B (PCR) Not detected M. pneumoniae (PCR) Not detected Parainfluenza 1 (PCR) Not detected Parainfluenza 2 (PCR) Not detected Parainfluenza 3 (PCR) Detected A Parainfluenza 4 (PCR) Not detected RSV (PCR) Not detected Entero/Rhino (PCR) Not detected DS: Diagnosis Discharge Diagnosis (1) NSTEMI (non-ST elevated myocardial infarction): Status: Acute Code(s): I21.4 - Non-ST elevation (NSTEMI) myocardial infarction (2) Elevated troponin: Status: Acute Code(s): R79.89 - Other specified abnormal findings of blood chemistry (3) Acute exacerbation of chronic obstructive pulmonary disease: Status: Acute Code(s): J44.1 - Chronic obstructive pulmonary disease with (acute) exacerbation (4) Parainfluenza: Status: Acute Code(s): B34.8 - Other viral infections of unspecified site (5) Dyspnea on exertion: Status: Acute Code(s): R06.09 - Other forms of dyspnea (6) Tobacco use disorder: Status: Acute Code(s): F17.200 - Nicotine dependence, unspecified, uncomplicated (7) Opioid use disorder in remission: Status: Acute Code(s): F11.91 - Opioid use, unspecified, in remission Meds Home Medications and Allergies Home Medications ?Medication ?Instructions ?Recorded ?Confirmed ?Type albuterol sulfate 90 mcg/actuation 1 puff inhalation A S DIRECTED 07/08/24 11/16/24 History aerosol inhaler methadone 10 mg tablet 80 mg PO DAILY 07/08/2411/01 History aspirin 81 mg chewable tablet 81 mg PO DAILY 30 days # 30 tabs 11/16/24 Rx atorvastatin 40 mg tablet 40 mg PO HS 30 days #30 tabs 11/16/24 Rx fluticasone propionate 230 1 puff inhalation BID 11/1611/16/24 History mcg-salmeterol 21 mcg/actuation HFA inhaler (Advair HFA) metoprolol succinate 25 mg 25 mg PO DAILY 30 days #30 tabs 11/16/24 Rx tablet,extended release 24 hr prednisone 20 mg tablet 40 mg (2 x 20 mg) PO DAILY 4 days 11/16/24 Rx #8 tabs tiotropium bromide 2.5 1 inh inhalation DAILY 11/1611/16/24 History mcg/actuation mist for inhalation (Spiriva Respimat) New Prescriptions to Start Prescriptions: aspirin Lanny Allen atorvastatin Lanny Allen metoprolol succinate Lanny Allen prednisone Lanny Allen Allergies Allergy/AdvReac Type Severity Reaction Status Date / Time No Known Allergies Allergy Verified 11/15/24 12:43 Discharge Plan Disposition Patient Disposition: Home, Self-Care Condition: Good Follow up Plan Follow up with: Yisel West APRN [Nurse Practitioner, Cardiology] - Enter time for follow up Annangi,Srinadh, MD [Physician, Pulmonology] - Enter time for follow up Prescriptions/Medication Reconciliation: New atorvastatin 40 mg Tablet 40 mg PO HS 30 Days Qty: 30 3RF prednisone 20 mg Tablet 40 mg PO DAILY 4 Days Qty: 8 0RF aspirin 81 mg Tablet,Chewable 81 mg PO DAILY 30 Days Qty: 30 3RF metoprolol succinate 25 mg Tablet Extended Release 24 Hr 25 mg PO DAILY 30 Days Qty: 30 3RF Continued methadone 10 mg Tablet 80 mg PO DAILY albuterol sulfate 90 mcg/actuation HFA aerosol inhaler 1 puff inhalation DIRECTED fluticasone propion-salmeterol [Advair HFA] 230-21 mcg/actuation HFA aerosol inhaler 1 puff INHALATION BID Spiriva Respimat 2.5 mcg/actuation mist 1 inh INHALATION DAILY Problem Reconciliation Problems Reviewed?: Yes Patient Discharge Instructions ACTIVITY: Continue current activity DIET: continue same diet Patient Instructions: Heart Attack, Stop Light COPD Print Language: [place] Providers Primary Care Provider: Provider,Referral Admit Provider: Bayron Bledsoe Attending Provider: Bayron Bledsoe
--- NOTE | 2024-11-16 15:04 | CA_ITS ---
APPROVED REPORT EXAM: Comprehensive 2D, Doppler, and color-flow Echocardiogram Bottom Turner: Fátima Rogers CRT Ht: 5 ft 10 in Wt: 130lbs BSA: 1.74 BP: 119/84 mmHg Indications: NSTEMI, home o2 Difficult exam due to lung interference, scanned sitting up in bed. M-Mode Dimensions RVDd 1.99 cm (0.9-2.6) LA Diam 1.86 cm (1.9-4.0) LVDd 3.93 cm (3.5-5.7) LVDs 2.55 cm (3.5-5.7) IVSd 0.83 cm (0.6-1.1) PWd 0.70 cm (0.6-1.1) EF (Teich) 65.10% FS 35.10% EDV (Teich) 67.10 mL ESV (Teich) 23.40 mL LV Diastology E Decel Time 230 (160-240 msec) E/A Ratio 1.51 MED A' 9.70 cm/s LAT A' 12.40 cm/s Aortic Valve AI PHT 234.00 ms AO Peak GR. 10.00 mmHg Mitral Valve MV E Max Cesar. 62.0 (40-130 cm/s) MV A Velocity 41.0 (40-130 cm/s) E/A Ratio 1.51 MV PHT 67.0 ms Tricuspid Valve TR P. Velocity 290.00 cm/s RAP Estimate 10.00 mmHg RVSP 43.70 mmHg Left Ventricle The left ventricle is normal size. The left ventricular systolic function is normal. The left ventricular ejection fraction is within the normal range. There is increased LV wall thickness. There is normal LV segmental wall motion. The left ventricular diastolic function is normal. LVEF is 55%. Right Ventricle Right ventricle is mildly dilated. The right ventricular systolic function is normal. Atria The left atrium size is normal. The right atrium size is normal. There is no Doppler evidence of interatrial shunt. Aortic Valve The aortic valve is mildly thickened. There is no aortic valvular stenosis. Mild aortic regurgitation. Mitral Valve The mitral valve is normal in structure. No evidence of mitral valve stenosis. Trace mitral regurgitation. Tricuspid Valve Tricuspid valve is grossly normal in structure and function. Mild tricuspid regurgitation. RVSP is 25-30 mmHg. Pulmonic Valve The pulmonary valve is normal in structure. Trace pulmonic regurgitation. Great Vessels The aortic root is normal in size. IVC is normal in size and collapses >50% with inspiration. Pericardium There is no pericardial effusion. Other Information Study Quality: Fair Conclusion Normal biventricular systolic function. Mild RV dilation. Mild AI, mild TR. Electronically signed by : Deborah Diez MD 11/16/2024 11:39:09
--- NOTE | 2024-11-16 15:16 | PC.NURSE ---
PT IS SITTING UP ON SOB. ALERT AND ORIENTED X4. NO COMPLAINTS OF CP OR SOA. O2 SATURATION HAS MAINTAINED 91-94% ON ROOM AIR. LUNG SOUNDS DIMINISHED WITH SCATTERED WHEEZES/RHONCHI. ABDOMEN SOFT/NON TENDER WITH ACTIVE BOWEL SOUNDS. NSR ON TELEMETRY. WILL CONTINUE TO MONITOR.
--- NOTE | 2024-11-17 11:13 | SW/DCPLANNER ---
Spoke with patient on the phone. Patient stated that he is doing about the same. Patient stated that he is aware of his upcoming appointments. 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 Patient stated that he has no concerns or questions at this time. Cathie Chaparro
[2024-11-18 17:13] LABS: QuantiFERON-TB Gold Plus Negative (Negative)
== END 2024-11-16 16:34 | disposition home or self-care (01) ==
LOC: ER 14:40 → 2ND 14:45
PROVIDERS: Internal Medicine Pulmonary Disease; Physician Assistant; Admitting Provider Student in an Organized Health Care Education/Training Program; Emergency Provider Student in an Organized Health Care Education/Training Program; Visit Provider Student in an Organized Health Care Education/Training Program
DX: I21.4 Non-ST elevation (NSTEMI) myocardial infarction (principal); J96.91 Respiratory failure, unspecified with hypoxia; J96.92 Respiratory failure, unspecified with hypercapnia; R79.89 Other specified abnormal findings of blood chemistry; J44.1 Chronic obstructive pulmonary disease with (acute) exacerbation; J12.2 Parainfluenza virus pneumonia; J98.4 Other disorders of lung; R59.0 Localized enlarged lymph nodes; B34.8 Other viral infections of unspecified site; R63.4 Abnormal weight loss; Z79.891 Long term (current) use of opiate analgesic; F17.210 Nicotine dependence, cigarettes, uncomplicated; Z79.51 Long term (current) use of inhaled steroids; Z79.82 Long term (current) use of aspirin; Z79.899 Other long term (current) drug therapy; Z88.6 Allergy status to analgesic agent; Z88.8 Allergy status to other drugs, medicaments and biological substances
CPT/HCPCS: 96372; 96374; 96375 ×2; 96376; 0223U; 36415; 71045; 71275; 75574; 80053; 80061; 80307; 83036; 83735; 83880; 84145; 84443; 84484; 85025; 85378; 86140; 86480; 87633; 87636; 93005; 93306; 94640; G0378; J1650; J2919; Q9967

== ENCOUNTER 2024-12-17 13:36 | Observation (INO) | payer MEDICARE, SELFPAY ==
[2024-12-17] VITALS (10 sets, daily range): BP systolic 101–138; BP diastolic 65–81; PULSE 85–125; RESP 14–22; TEMP 36.4–37.6; O2SAT 93–97; BMI 17.9; BMI 18.1
--- NOTE | 2024-12-17 13:45 | CT_ITS ---
FINAL REPORT TECHNIQUE: Thin section axial CT with contrast with multiplanar reconstruction This study was performed with techniques to keep radiation doses as low as reasonably achievable, (ALARA). Individualized dose reduction techniques using automated exposure control or adjustment of mA and/or kV according to the patient's size were employed. CLINICAL HISTORY: shortness of breath COMPARISON: 11/15/2024 FINDINGS: Pulmonary vessels enhance in normal fashion without evidence of embolism. Thoracic aorta shows no dissection or aneurysm. There is a right apical cavitary lesion which measures up to 20 mm in size, was previously 16 mm. There is associated bronchial wall thickening with bronchial opacities leading to the cavitary lesion. There is a second focus in the right upper lobe which is also cavitary, measuring 13 mm in size, was previously 11 mm. There is new extensive consolidation in the left upper lobe consistent with pneumonia. There are associated air-fluid levels within some of the bullous regions as well, which may represent atypical pneumonia in addition to bacterial pneumonia. There is resolved bronchiolitis previously noted in the left lower lobe. There is improved right hilar adenopathy, and subcarinal adenopathy remains stable. IMPRESSION: 1. No evidence of pulmonary embolism 2. Interval development of severe left upper lobe pneumonia with consolidation and numerous air-fluid levels within bullous lesions. Atypical etiology not excluded. 3. Mild progression of right upper lobe cavitary lesions, which may be secondary to atypical or fungal disease, less likely neoplasm. Reviewed, Interpreted and Dictated by Niurka Morley MD Transcribed by Pennie Alvarado Authenticated and [facility]
--- NOTE | 2024-12-17 13:47 | ECG_ITS ---
APPROVED REPORT Exam: Resting ECG HR:120 bpm ECG Measurements Heart Rate 120 AXES PA 134 P 78 QRSd 82 QRS 81 QT 339 T 68 QTc 410 Conclusion SINUS TACHYCARDIA ABNORMAL RHYTHM ECG UNCONFIRMED REPORT Sinus tachycardia with ventricular rate of [address] elevation or depression. Electronically signed by : ZHAO HAYES, 12/18/2024 07:08:23
--- NOTE | 2024-12-17 13:48 | ED_ITS ---
<Statement entered by Verna Vegas DO - 12/17/24 17:49> I was consulted by the TRI[facility], and we discussed the complexity of the problems being addressed. I approved the treatment and management plan for this patient's care in the emergency department, thus performing a substantive portion of the medical decision making. Patient admitted in stable condition for severe pneumonia, sepsis Verna Vegas DO Discharge Plan Disposition Patient Disposition: Admitted Clinical Impressions Clinical Impression: Sepsis Discharge ED Provider: Verna Vegas [facility] <Emma Huang (ED), PATENT CLERK - Last Filed: 12/17/24 16:48> General Chief Complaint: Cough Stated Complaint: coughing phlegm, weakness, vomiting Time Seen by Provider: 12/17/24 13:41 History of Present Illness HPI narrative: 49-year-old male presents to the ED today from a primary care office for coughing with sharp chest pain, shortness of breath for 3 days. He has had chills. He has had some vomiting up phlegm. Related Data Home Medications ?Medication ?Instructions ?Recorded ?Confirmed albuterol sulfate 90 mcg/actuation 1 puff inhalation A S DIRECTED 07/08/24 12/17/24 aerosol inhaler methadone 10 mg tablet 80 mg PO DAILY 07/08/2412/01 fluticasone propionate 230 1 puff inhalation BID 11/1612/17/24 mcg-salmeterol 21 mcg/actuation HFA inhaler (Advair HFA) tiotropium bromide 2.5 1 inh inhalation DAILY 11/1612/17/24 mcg/actuation mist for inhalation (Spiriva Respimat) Previous Rx's ?Medication ?Instructions ?Recorded aspirin 81 mg chewable tablet 81 mg PO DAILY 30 days # 30 tabs 11/16/24 atorvastatin 40 mg tablet 40 mg PO HS 30 days #30 tabs 11/16/24 metoprolol succinate 25 mg 25 mg PO DAILY 30 days #30 tabs 11/16/24 tablet,extended release 24 hr Allergies Allergy/AdvReac Type Severity Reaction Status Date / Time No Known Allergies Allergy Verified 12/17/24 13:06 PFS <Emma Huang (ED), PATENT CLERK - Last Filed: 12/17/24 16:48> PENDING SALE TO [facility] Disclaimer: The information contained in this section may have been updated after the patient was seen, as this information can be updated by other users. Medical History (Updated 12/17/24 @ 16:41 by Jc Garcia RN) Influenza A Distal radius fracture, left Calcaneal fracture Mediastinal lymphadenopathy Hilar lymphadenopathy Cavitary lesion of lung Opioid use disorder in remission Parainfluenza Chronic obstructive pulmonary disease Family History Other No significant family history Social History (Updated 12/17/24 @ 16:35 by Medina Hancock RN) Smoking Status: Current every day smoker tobacco type: cigarettes packs per day: 1 second hand exposure: No alcohol intake: never substance use type: former substance user, opiates, painkillers and prescription drug current occupational status: other Travel in the last 8 weeks?: None household members: significant other housing: house caffeine: Yes Have you lived/traveled outside US in past 30 days?: No Contact w/someone who lives/traveled outside US past 30 days?: No Exposure to someone with infectious disease in past 14 days?: No Do you have a fever (greater than 100.4 F or 38 C)?: No Have you tested positive for COVID-19?: No Exposed to someone with COVID-19 in past 14 days?: No Do you have a sore throat?: No Do you have a cough?: No Do you have any weakness?: No Are you experiencing any nausea/vomitting?: No Do you have any diarrhea?: No Are you experiencing any unusual bleeding?: No Do you have any muscle aches/pain?: No Do you have any abdominal pain?: No Are you experiencing loss of taste or smell?: No Other Medical History Have you received the Flu Vaccine for this season: No Have you received the Pneumonia Vaccine: Yes <Emma Huang (ED), PATENT CLERK - Last Filed: 12/17/24 16:48> ROS Obtained: Yes Systems reviewed as appropriate & no additional complaints except as documented Constitutional Constitutional: Reports as per HPI Physical Exam <Emma Huang (ED), PATENT CLERK - Last Filed: 12/17/24 16:48> General General appearance: alert and in distress Head Head exam: normocephalic Eye Eye exam: Present normal appearance and PERRL ENT ENT exam: Present normal exam and mucous membranes moist Neck Neck exam: Present normal inspection and trachea midline Chest Chest inspection: Present symmetric chest wall rise Respiratory Respiratory exam: Present respiratory distress and wheezes Cardiovascular Cardiovascular exam: Present normal rhythm, tachycardia, normal heart sounds, +S1 and +S2 Abdominal Exam Abdominal exam: Present soft and normal bowel sounds Extremities Exam Extremities exam: Present normal inspection, full ROM and normal capillary refill Back Exam Back exam: Present normal inspection and full ROM Neurological Exam Neurological exam: Present alert, oriented X3 and normal gait Psychiatric Psychiatric exam: Present normal affect and normal mood Skin Skin exam: Present warm and dry HEART Score <Emma Huang (ED), PATENT CLERK - Last Filed: 12/17/24 16:48> HEART Score HEART Score assessment performed?: Yes History (anamnesis): Slightly suspicious ECG: Normal Age: 45-65 years Risk factors: 1-2 risk factors Troponin: </= normal limit HEART Score: 2 <Eb Maravilla MD - Last Filed: 12/17/24 17:38> HEART Score HEART Score: 2 Critical Care <Emmanarda Huang (ED), PATENT CLERK - Last Filed: 12/17/24 16:48> Critical Care Time Critical Care Time: No Medical Decision Making <[facility] (ED), PATENT CLERK - Last Filed: 12/17/24 16:48> Willie Inquiry Pt receiving controlled substance: No Willie was queried for this patient: No Vital Signs Vital Signs: 12/17/24 13:45 12/17/24 13:45 12/17/24 14:00 Temperature 99.7 F H 99.7 F H Temperature Source Oral Oral Pulse Rate 125 H 112 H Pulse Rate [Right Radial] 125 H Respiratory Rate 20 20 21 Blood Pressure 138/81 116/79 Blood Pressure [Right Arm] 138/81 Blood Pressure Mean [Right Arm] 100 02 Sat by Pulse Oximetry 97 97 93 L Oxygen Delivery Method T-Piece Oxygen Flow Rate (LPM) 10 12/17/24 14:30 12/17/24 15:30 12/17/24 16:00 Temperature Temperature Source Pulse Rate 113 H 107 H 111 H Pulse Rate [Right Radial] Respiratory Rate 20 22 21 Blood Pressure 121/73 118/75 114/71 Blood Pressure [Right Arm] Blood Pressure Mean [Right Arm] 02 Sat by Pulse Oximetry 97 94 L 93 L Oxygen Delivery Method Room Air Room Air Room Air Oxygen Flow Rate (LPM) 12/17/24 16:15 12/17/24 16:33 12/17/24 16:40 Temperature 98.1 F Temperature Source Pulse Rate 105 H 104 H Pulse Rate [Right Radial] Respiratory Rate 19 14 Blood Pressure 114/71 105/65 L Blood Pressure [Right Arm] Blood Pressure Mean [Right Arm] 02 Sat by Pulse Oximetry 96 Oxygen Delivery Method Room Air Room Air Oxygen Flow Rate (LPM) 12/17/24 17:00 Temperature Temperature Source Pulse Rate Pulse Rate [Right Radial] Respiratory Rate Blood Pressure Blood Pressure [Right Arm] Blood Pressure Mean [Right Arm] 02 Sat by Pulse Oximetry Oxygen Delivery Method Room Air Oxygen Flow Rate (LPM) Lab Data Labs: Lab Results 12/17/24 13:59: WBC 19.0 H, RBC 4.71, Hgb 13.9 L, Hct 40.8 L, MCV 86.6, MCH 29.5, MCHC 34.1, RDW 12.7, Plt Count 178, MPV 10.5 H, Neut % (Auto) 89.7 H, L ymph % (Auto) 2.9 L, [place] % (Auto) 6.3, Eos % (Auto) 0.0 L, Baso % (Auto) 0.2, N eut # (Auto) 17.1 H, Lymph # (Auto) 0.6 L, [place]idge # (Auto) 1.2 H, Eos # (Auto) 0.0, Baso # (Auto) 0.0, Sodium 132 L, Potassium 3.7, Chloride 94 L, Carbon Dioxide 31 H, Anion Gap 10.7, BUN 9, Creatinine 0.60 L, Estimated Creat Clear 117, Estimated GFR 142, Est GFR ( Amer) 172, Glucose 111 H, Lactate 1.4, Calcium 9.0, Magnesium 1.5 L, Total Bilirubin 0.9, AST 22, ALT 17, Alkaline Phosphatase 103, Troponin I < 0.01, Total Protein 7.2, Albumin 3.8, Globulin 3.4 H, Albumin/Globulin Ratio 1.1, Lipase 23 12/17/24 14:23: Urine Color Yellow, Urine Appearance Clear, Urine pH 6.0, Ur Specific [place] 1.025, Urine Protein 1+ A, Urine Glucose (UA) Negative, Urine Ketones Negative, Urine Blood 1+ A, Urine Nitrate Negative, Urine Bilirubin 1+ A , Urine Urobilinogen 2.0, Ur Leukocyte Esterase Negative, Urine RBC Occasional, Urine WBC None, Ur Squamous Epith Cells Occasional, Urine Bacteria None, Urine Mucus 1+ 12/17/24 13:59 12/17/24 13:59 Response Orders (Tests/Meds): ED MEDICATIONS Generic Name Dose Route Start Last Admin Trade Name Freq PRN Reason Stop Dose Admin Azithromycin 500 mg/ Sodium 250 mls @ 250 mls/hr 12/17/24 16:15 12/17/24 16:31 Chloride IV 12/27/24 16:14 250 mls/hr Q24H BREANNE Administration Sodium Chloride 3 ml 12/17/24 15:39 Sodium Chloride 3% 15ml [facility] 01/16/25 15:38 ONCE PRN INDUCE SPUTUM COLLECTION Sodium Chloride 3 ml 12/17/24 15:45 Sodium Chloride 3% 15ml [facility] 01/16/25 15:44 ONCE PRN INDUCE SPUTUM COLLECTION Discontinued Medications Generic Name Dose Route Start Last Admin Trade Name Freq PRN Reason Stop Dose Admin Acetaminophen 1,000 mg 12/17/24 15:00 12/17/24 15:30 Acetaminophen 1,000mg/100ml Vial IV 12/17/24 15:01 1,000 mg ONCE ONE Administration Albuterol/Ipratropium 9 ml 12/17/24 13:44 12/17/24 14:04 Ipratropium/Albuterol 3 Ml Neb 12/17/24 13:45 9 ml ONCE ONE Administration Sodium Chloride 1,000 mls @ 999 mls/hr 12/17/24 13:44 12/17/24 14:01 Sod Chlor 0.9% 1000ml Bag IV 12/17/24 14:44 999 mls/hr .Q1H1M ONE Administration Magnesium Sulfate 2 gm in 50 mls @ 50 mls/hr 12/17/24 13:44 12/17/24 14:06 Magnesium Sulfate 2gm/50ml Premix IV 12/17/24 14:43 50 mls/hr ONCE ONE Administration Ceftriaxone Sodium 2 gm/ 100 mls @ 200 mls/hr 12/17/24 15:00 12/17/24 15:06 Sodium Chloride IV 12/17/24 15:29 200 mls/hr ONCE ONE Administration Sodium Chloride 700 mls @ 999 mls/hr 12/17/24 15:00 12/17/24 15:05 Sod Chlor 0.9% 1000ml Bag IV 12/17/24 15:42 999 mls/hr .Q43M ONE Administration Iopamidol 80 ml 12/17/24 14:58 12/17/24 15:00 Iopamidol-370 (76%);100ml Bottle IV 12/17/24 14:59 80 ml ONCE ONE Administration Methylprednisolone Sodium Succinate 125 mg 12/17/24 14:04 12/17/24 14:05 Methylprednisolone Sod Succ 125mg Vial IV 12/17/24 14:05 125 mg ONCE ONE Administration Morphine Sulfate 4 mg 12/17/24 14:09 12/17/24 14:15 Morphine 4mg/Ml Syringe IV 12/17/24 14:10 4 mg ONCE ONE Administration Ondansetron HCl 4 mg 12/17/24 14:09 12/17/24 14:15 Ondansetron 4mg/2ml Vial IV 12/17/24 14:10 4 mg ONCE ONE Administration Sodium Chloride 40 ml 12/17/24 14:58 12/17/24 14:59 0.9 % Sodium Chloride 50 Ml Vial IV 12/17/24 14:59 40 ml ONCE ONE Administration ORDERS Category Date Time Status CTA Chest [CT angio chest PE protocol] Stat Cat Scan 12/17/24 13:45 Completed Consult to Case Management [CONS] Routine Cons 12/17/24 16:40 Active CBC [Complete Blood Count Auto Diff] Stat Lab 12/17/24 13:59 Completed Comprehensive Metabolic Panel Stat Lab 12/17/24 13:59 Completed Lactic Acid Stat Lab 12/17/24 13:59 Completed Lipase Stat Lab 12/17/24 13:59 Completed Magnesium Stat Lab 12/17/24 13:59 Completed Trop I [Troponin I] Stat Lab 12/17/24 13:59 Completed Urinalysis and Microscopic Stat Lab 12/17/24 14:23 Completed Blood Culture Stat Micro 12/17/24 14:15 Received Sputum Culture & Gram Stain Stat Micro 12/17/24 15:39 Ordered MDM Narrative Medical Decision Narrative: This is a 49-year-old male who presents to the ED from a PCP office for complaint of cough, sharp pain with breathing and coughing for 3 days. He has had fever and chills and has been tachycardic. PCP was concerned about PE. He arrives to the ED with a low-grade 99.7 temp, tachycardia 125 and 97% O2 on room air. He is thin appearing and complaining of pain. Initial workup will include sepsis workup as he is tachycardic and a PE scan to rule out a PE. Differential diagnosis includes PE, pneumonia, COPD, ACS, among others. Initial workup shows white count of 19, view of the CT scan shows pneumonia. This is viewed by myself. Radiology read shows pneumonia possible fungal component please see radiology report for formal radiology read. Patient has been given azithromycin and Rocephin here in the ED along with Solu-Medrol, mag and DuoNebs for breathing. He does feel improved with symptoms. He continues on room air and 93%. I talked to about patient's scan and he wants patient admitted for bronchoscopy tomorrow. I also talked to hospitalist who accepted patient for admission for pneumonia. Patient is safe for admission to the floor. <Eb Maravilla MD - Last Filed: 12/17/24 17:38> Vital Signs Vital Signs: 12/17/24 13:45 12/17/24 13:45 12/17/24 14:00 Temperature 99.7 F H 99.7 F H Temperature Source Oral Oral Pulse Rate 125 H 112 H Pulse Rate [Right Radial] 125 H Respiratory Rate 20 20 21 Blood Pressure 138/81 116/79 Blood Pressure [Right Arm] 138/81 Blood Pressure Mean [Right Arm] 100 02 Sat by Pulse Oximetry 97 97 93 L Oxygen Delivery Method T-Piece Oxygen Flow Rate (LPM) 10 12/17/24 14:30 12/17/24 15:30 12/17/24 16:00 Temperature Temperature Source Pulse Rate 113 H 107 H 111 H Pulse Rate [Right Radial] Respiratory Rate 20 22 21 Blood Pressure 121/73 118/75 114/71 Blood Pressure [Right Arm] Blood Pressure Mean [Right Arm] 02 Sat by Pulse Oximetry 97 94 L 93 L Oxygen Delivery Method Room Air Room Air Room Air Oxygen Flow Rate (LPM) 12/17/24 16:15 12/17/24 16:33 12/17/24 16:40 Temperature 98.1 F Temperature Source Pulse Rate 105 H 104 H Pulse Rate [Right Radial] Respiratory Rate 19 14 Blood Pressure 114/71 105/65 L Blood Pressure [Right Arm] Blood Pressure Mean [Right Arm] 02 Sat by Pulse Oximetry 96 Oxygen Delivery Method Room Air Room Air Oxygen Flow Rate (LPM) 12/17/24 17:00 Temperature Temperature Source Pulse Rate Pulse Rate [Right Radial] Respiratory Rate Blood Pressure Blood Pressure [Right Arm] Blood Pressure Mean [Right Arm] 02 Sat by Pulse Oximetry Oxygen Delivery Method Room Air Oxygen Flow Rate (LPM) Lab Data Labs: Lab Results 12/17/24 13:59: WBC 19.0 H, RBC 4.71, Hgb 13.9 L, Hct 40.8 L, MCV 86.6, MCH 29.5, MCHC 34.1, RDW 12.7, Plt Count 178, MPV 10.5 H, Neut % (Auto) 89.7 H, L ymph % (Auto) 2.9 L, [place] % (Auto) 6.3, Eos % (Auto) 0.0 L, Baso % (Auto) 0.2, N eut # (Auto) 17.1 H, Lymph # (Auto) 0.6 L, [place] # (Auto) 1.2 H, Eos # (Auto) 0.0, Baso # (Auto) 0.0, Sodium 132 L, Potassium 3.7, Chloride 94 L, Carbon Dioxide 31 H, Anion Gap 10.7, BUN 9, Creatinine 0.60 L, Estimated Creat Clear 117, Estimated GFR 142, Est GFR ( Amer) 172, Glucose 111 H, Lactate 1.4, Calcium 9.0, Magnesium 1.5 L, Total Bilirubin 0.9, AST 22, ALT 17, Alkaline Phosphatase 103, Troponin I < 0.01, Total Protein 7.2, Albumin 3.8, Globulin 3.4 H, Albumin/Globulin Ratio 1.1, Lipase 23 12/17/24 14:23: Urine Color Yellow, Urine Appearance Clear, Urine pH 6.0, Ur Specific [place] 1.025, Urine Protein 1+ A, Urine Glucose (UA) Negative, Urine Ketones Negative, Urine Blood 1+ A, Urine Nitrate Negative, Urine Bilirubin 1+ A , Urine Urobilinogen 2.0, Ur Leukocyte Esterase Negative, Urine RBC Occasional, Urine WBC None, Ur Squamous Epith Cells Occasional, Urine Bacteria None, Urine Mucus 1+ Response Orders (Tests/Meds): ED MEDICATIONS Generic Name Dose Route Start Last Admin Trade Name Freq PRN Reason Stop Dose Admin Azithromycin 500 mg/ Sodium 250 mls @ 250 mls/hr 12/17/24 16:15 12/17/24 16:31 Chloride IV 12/27/24 16:14 250 mls/hr Q24H BREANNE Administration Sodium Chloride 3 ml 12/17/24 15:39 Sodium Chloride 3% 15ml [facility] 01/16/25 15:38 ONCE PRN INDUCE SPUTUM COLLECTION Sodium Chloride 3 ml 12/17/24 15:45 Sodium Chloride 3% 15ml [facility] 01/16/25 15:44 ONCE PRN INDUCE SPUTUM COLLECTION Discontinued Medications Generic Name Dose Route Start Last Admin Trade Name Freq PRN Reason Stop Dose Admin Acetaminophen 1,000 mg 12/17/24 15:00 12/17/24 15:30 Acetaminophen 1,000mg/100ml Vial IV 12/17/24 15:01 1,000 mg ONCE ONE Administration Albuterol/Ipratropium 9 ml 12/17/24 13:44 12/17/24 14:04 Ipratropium/Albuterol 3 Ml [facility] 12/17/24 13:45 9 ml ONCE ONE Administration Sodium Chloride 1,000 mls @ 999 mls/hr 12/17/24 13:44 12/17/24 14:01 Sod Chlor 0.9% 1000ml Bag IV 12/17/24 14:44 999 mls/hr .Q1H1M ONE Administration Magnesium Sulfate 2 gm in 50 mls @ 50 mls/hr 12/17/24 13:44 12/17/24 14:06 Magnesium Sulfate 2gm/50ml Premix IV 12/17/24 14:43 50 mls/hr ONCE ONE Administration Ceftriaxone Sodium 2 gm/ 100 mls @ 200 mls/hr 12/17/24 15:00 12/17/24 15:06 Sodium Chloride IV 12/17/24 15:29 200 mls/hr ONCE ONE Administration Sodium Chloride 700 mls @ 999 mls/hr 12/17/24 15:00 12/17/24 15:05 Sod Chlor 0.9% 1000ml Bag IV 12/17/24 15:42 999 mls/hr .Q43M ONE Administration Iopamidol 80 ml 12/17/24 14:58 12/17/24 15:00 Iopamidol-370 (76%);100ml Bottle IV 12/17/24 14:59 80 ml ONCE ONE Administration Methylprednisolone Sodium Succinate 125 mg 12/17/24 14:04 12/17/24 14:05 Methylprednisolone Sod Succ 125mg Vial IV 12/17/24 14:05 125 mg ONCE ONE Administration Morphine Sulfate 4 mg 12/17/24 14:09 12/17/24 14:15 Morphine 4mg/Ml Syringe IV 12/17/24 14:10 4 mg ONCE ONE Administration Ondansetron HCl 4 mg 12/17/24 14:09 12/17/24 14:15 Ondansetron 4mg/2ml Vial IV 12/17/24 14:10 4 mg ONCE ONE Administration Sodium Chloride 40 ml 12/17/24 14:58 12/17/24 14:59 0.9 % Sodium Chloride 50 Ml Vial IV 12/17/24 14:59 40 ml ONCE ONE Administration ORDERS Category Date Time Status CTA Chest [CT angio chest PE protocol] Stat Cat Scan 12/17/24 13:45 Completed Consult to Case Management [CONS] Routine Cons 12/17/24 16:40 Active CBC [Complete Blood Count Auto Diff] Stat Lab 12/17/24 13:59 Completed Comprehensive Metabolic Panel Stat Lab 12/17/24 13:59 Completed Lactic Acid Stat Lab 12/17/24 13:59 Completed Lipase Stat Lab 12/17/24 13:59 Completed Magnesium Stat Lab 12/17/24 13:59 Completed Trop I [Troponin I] Stat Lab 12/17/24 13:59 Completed Urinalysis and Microscopic Stat Lab 12/17/24 14:23 Completed Blood Culture Stat Micro 12/17/24 14:15 Received Sputum Culture & Gram Stain Stat Micro 12/17/24 15:39 Ordered MDM Narrative Medical Decision Narrative: This is a 49-year-old male who presents to the ED from a PCP office for complaint of cough, sharp pain with breathing and coughing for 3 days. He has had fever and chills and has been tachycardic. PCP was concerned about PE. He arrives to the ED with a low-grade 99.7 temp, tachycardia 125 and 97% O2 on room air. He is thin appearing and complaining of pain. Initial workup will include sepsis workup as he is tachycardic and a PE scan to rule out a PE. Differential diagnosis includes PE, pneumonia, COPD, ACS, among others. Initial workup shows white count of 19, view of the CT scan shows pneumonia. This is viewed by myself. Radiology read shows pneumonia possible fungal component please see radiology report for formal radiology read. Patient has been given azithromycin and Rocephin here in the ED along with Solu-Medrol, mag and DuoNebs for breathing. He does feel improved with symptoms. He continues on room air and 93%. I talked to about patient's scan and he wants patient admitted for bronchoscopy tomorrow. I also talked to hospitalist who accepted patient for admission for pneumonia. Patient is safe for admission to the floor. Eb Maravilla MD I was consulted by the [facility], and we discussed the complexity of the problems being addressed. I approve the treatment and management plan for this patient's care in the emergency department, thus performing a substantive portion of the medical decision making. At this time, patient's CT imaging and laboratory studies were pending, although he does have a leukocytosis in the setting of tachycardia with concern for sepsis. Agree with emperic antibiotics, Azithromycin and Rocephin. Patient's care was handed off to the oncoming physician, Dr. Vegas, pending completion of his workup.
[2024-12-17] MEDS: 0.9 % SODIUM CHLORIDE 1000ML 1,000 ML 999 ML IV (14:01)
[2024-12-17] MEDS: IPRATROPIUM/ALBUTEROL 3 ML NEB 9 ML IH (14:04)
[2024-12-17] MEDS: METHYLPREDNISOLONE SOD SUCC 125MG VIAL 125 MG IV (14:05)
[2024-12-17] MEDS: MAGNESIUM SULFATE IN WATER 2 GM/50 ML PIGGYBACK IV (14:06)
[2024-12-17 14:13] LABS: Hematocrit 40.8 % (42.0-52.0); Hemoglobin 13.9 g/dL (14.1-18.0); Immature Granulocytes % 0.9 %; Mean Corpuscular HGB Conc 34.1 g/dL (31.8-35.4); Mean Corpuscular Hemoglobin 29.5 pg (27.0-31.2); Mean Corpuscular Volume 86.6 fl (80-94); Nucleated Red Blood Cells % 0 %; Platelet Count 178 K/mm3 (142-424); Red Blood Count 4.71 M/mm3 (4.60-6.20); Red Cell Distribution Width-SD 40.2 fL; White Blood Count 19.0 K/mm3 (4.8-10.8)
[2024-12-17] MEDS: MORPHINE 4MG/ML SYRINGE 4 MG IV (14:15)
[2024-12-17] MEDS: ONDANSETRON 4MG/2ML VIAL 4 MG IV (14:15)
--- OUTSIDE RECORDS SUMMARY | 2024-12-17 14:17 | XMS_ITS | Clinical Summary ---
Author Organization [facility] Address [address] [place] [address] Care Team Providers Care Ward Secretary Name Role Phone Pcp, No Primary Care [...] spacer 12 g 11 5 Active Tiotropium [place] Monohydrate (Spiriva Respimat) 2.5 MCG/ACT inhalerIndicatio ns:Asthma-COPD overlap syndrome (CMS/HCC) Inhale 2 puffs daily. 4 g 11 5 Active Active Problems No known active problems Immunizations Immunization Administration Dates Next Due Influenza, [...] 08/25/2024 12:28 PM EDT Plan of Treatment Health Maintenance Due [...] 2018 [facility]-Zoster Vaccines (1 of 2) 2023 [id number] Vaccine (1 - season) 2024 [facility]-Influenza Vaccine (#1) 02/01/202502/28, 06/13/2016 [facility]-Depression Screening 08/25/2025 025, 08/25/2024 HPV [...] on patient's age to complete this topic Insurance [employer] MEDICARE Care Teams Ward Secretary Relationship Specialty Start Date End Date Pcp, [place] [address] PCP - General Family Medicine 06/21/22
--- OUTSIDE RECORDS SUMMARY | 2024-12-17 14:17 | XMS_ITS | Encounter Summary ---
Author Organization [facility] Address [address] [place] [address] Care Team Providers Care Rivet Hammer Machine Operator Name Role Phone Pcp, No Primary Care Provider Unavailabl e Reason for Referral * Consultation (Routine) - Closed Specialty Diagnoses / Procedures Referred By Contac t Referred To Contact Pulmonary Disease / Pulmonology Diagnoses Chronic obstructive pulmonary disease, unspecified COPD type (CMS/HCC) Gato Rutledge MD [address] [address] Phone: tel: fax: Referral ID Status Reason Start Date Expiration Date V isits Requested Visits Authorized [id number] Closed Specialty Services Required 05/14/2024 11/13/2025 1 1 Encounter Details Date Type Department Care Team (Late st Contact Info) Description 05/14/2024 Community [facility] [address] [place] [address] Gato Rutledge MD [address] [phone] Chronic obstructive pulmonary disease, unspecified COPD type [...] as of this encounter Plan of Treatment Scheduled Referrals Name Type Priority Associated Diagnoses Orde r Schedule Ambulatory referral to Pulmonology Outpatient Referral Routine Chronic obstructive pulmonary disease, unspecified COPD type (CMS/HCC) Expected: 05/14/2024 (Approximate), Expires: 11/12/2025 documented as of this encounter Visit Diagnoses Diagnosis Chronic obstructive pulmonary disease, unspecified COPD type (CMS/HCC)- Primary documented in this encounter Care Teams Rivet Hammer Machine Operator Relationship Specialty Start Date End Date Pcp, [place] [address] PCP - General Family Medicine 06/21/22 documented as of this encounter
--- OUTSIDE RECORDS SUMMARY | 2024-12-17 14:17 | XMS_ITS | Clinical Summary ---
Author Organization [facility] Address [address] [place] [address] Phone Care Team Providers Care Information Resources Manager Name Role Phone Unavailable Primary Care Provider [...] Positive for Methadone NO CONTROLLED DRUGS FROM [facility] Problem Noted Date Diagnosed Date Mild methadone [...] Date Smoking Tobacco: Every Day Cigarettes 1 28.5 Started: 06/13/1996 Smokeless Tobacco: Never Tobacco Cessation:Ready [...] Vaccine (2023-2 5 season) 2024 Influenza Vaccine (#1) 2025 7 (Declined), 06/13/2016, 02/24/2015 (Declined) Meningococcal B Vaccine [...] Free Lifestyle No Fariha Lang RN Insurance [employer] [facility] [address] Advance Directives For more information, please contact: [phone] * Full Code (Latest Code Status on File) Date Activated Date Inactivated Comments 06/14/2016 3:44 PM 06/14/2016 9:19 PM
[2024-12-17 14:27] LABS: Microscopic, Urine URINE MICROSCOPIC (MICROSCOPIC)
[2024-12-17 14:36] LABS: Color,Urine YELLOW (Yellow); Glucose,Urine (UA) Negative (Negative); Ketones,Urine Negative (Negative); Leukocyte Esterase,Urine Negative (Negative); PH,Urine 6.0 (5.0-8.5); Protein,Urine 1+ (Negative); Specific Gravity, Urine 1.025 (1.005-1.030); Urobilinogen,Urine 2.0 EU/dl (0.2)
[2024-12-17 14:45] LABS: Albumin Level 3.8 g/dl (3.5-5.0); Chloride 94 mmol/L (98-107); Potassium 3.7 mmoL/L (3.5-5.1); Sodium 132 mmol/L (136-145)
[2024-12-17 14:48] LABS: Alanine Aminotransferase 17 U/L (12-78); Albumin/Globulin Ratio 1.1 (1.1-1.8); Alkaline Phosphatase 103 U/L (38-126); Anion Gap 10.7 mEq/L (5-15); Aspartate Amino Transferase 22 U/L (17-59); Bilirubin,Total 0.9 mg/dl (0.2-1.3); Blood Urea Nitrogen 9 mg/dl (9-20); Calcium 9.0 mg/dl (8.4-10.2); Carbon Dioxide 31 mmol/L (22.0-30.0); Creatinine Clearance Estimated 117 mL/min (50-200); Creatinine,Serum 0.60 mg/dl (0.66-1.25); Estimated Glomerular Filt Rate 142 ml/min (>60); GFR (African American) 172 ML/MIN (>60); Globulin 3.4 g/dL (1.3-3.2); Glucose 111 mg/dl (74-100); Lipase 23 U/L (23-300); Magnesium 1.5 mg/dl (1.6-2.3); Total Protein,Serum 7.2 g/dl (6.3-8.2)
[2024-12-17 14:54] LABS: Bilirubin,Urine 1+ (Negative)
[2024-12-17] MEDS: 0.9 % SODIUM CHLORIDE 50 ML VIAL 40 ML IV (14:59)
[2024-12-17] MEDS: IOPAMIDOL-370 (76%);100ML BOTTLE 80 ML IV (15:00)
[2024-12-17 15:05] LABS: Mucus,Urine 1+ /lpf; RBC,Urine Occasional #/hpf (0-3); Squamous Epithelial Cell,Urine Occasional #/hpf (0-5)
[2024-12-17] MEDS: 0.9 % SODIUM CHLORIDE 1000ML 700 ML 999 ML IV (15:05)
[2024-12-17 15:09] LABS: Troponin I < 0.01 ng/ml (0.00-0.034)
[2024-12-17] MEDS: ACETAMINOPHEN 1,000MG/100ML VIAL 1000 MG IV (15:30)
--- NOTE | 2024-12-17 16:17 | PC.NURSE ---
I spoke with HS to request a bed for admission
[2024-12-17] MEDS: AZITHROMYCIN 500 MG in 0.9 % SODIUM CHLORIDE 250 ML 250 MG IV (16:31)
--- NOTE | 2024-12-17 18:34 | EXP.HP ---
History of Present Illness *Admission Date: 12/17/24 *Reason for visit:: Left-sided pleuritic chest pain, shortness of breath *History of present illness: Reuben Lang is a 49-year-old male with medical history significant for 20 pack smoking history, COPD on room air, former opioid use disorder on methadone daily, who presents with 2-day onset of left-sided pleuritic chest pain, productive cough, and shortness of breath. He states symptoms have progressively worsened, was evaluated by pulmonology in the clinic today and was advised to come to the ED. Workup in the ED significant for WBC 19 with tachycardia and tachypnea. CTA chest revealed severe left upper lobe pneumonia with multiple suspected cavitary lesions. Case discussed with ED provider and she was made to admit patient for sepsis secondary to community-acquired pneumonia. [facility] Disclaimer: The information contained in this section may have been updated after the patient was seen, as this information can be updated by other users. Medical History (Updated 12/17/24 @ 16:41 by Jc Garcia RN) Influenza A Distal radius fracture, left Calcaneal fracture Mediastinal lymphadenopathy Hilar lymphadenopathy Cavitary lesion of lung Opioid use disorder in remission Parainfluenza Chronic obstructive pulmonary disease Family History Other No significant family history Social History (Updated 12/17/24 @ 16:35 by Medina Hancock RN) Smoking Status: Current every day smoker tobacco type: cigarettes packs per day: 1 second hand exposure: No alcohol intake: never substance use type: former substance user, opiates, painkillers and prescription drug current occupational status: other Travel in the last 8 weeks?: None household members: significant other housing: house caffeine: Yes Have you lived/traveled outside US in past 30 days?: No Contact w/someone who lives/traveled outside US past 30 days?: No Exposure to someone with infectious disease in past 14 days?: No Do you have a fever (greater than 100.4 F or 38 C)?: No Have you tested positive for COVID-19?: No Exposed to someone with COVID-19 in past 14 days?: No Do you have a sore throat?: No Do you have a cough?: No Do you have any weakness?: No Are you experiencing any nausea/vomitting?: No Do you have any diarrhea?: No Are you experiencing any unusual bleeding?: No Do you have any muscle aches/pain?: No Do you have any abdominal pain?: No Are you experiencing loss of taste or smell?: No Other Medical History Have you received the Flu Vaccine for this season: No Have you received the Pneumonia Vaccine: No Meds Home Medications and Allergies Home Medications ?Medication ?Instructions ?Recorded ?Confirmed ?Type albuterol sulfate 90 mcg/actuation 1 puff inhalation DIRECTED 07/08/24 12/17/24 History aerosol inhaler methadone 10 mg tablet 80 mg PO DAILY 07/08/24 12/17/24 History aspirin 81 mg chewable tablet 81 mg PO DAILY 30 days #30 tabs 11/16/24 12/17/24 Rx atorvastatin 40 mg tablet 40 mg PO HS 30 days #30 tabs 11/16/24 12/17/24 Rx fluticasone propionate 230 1 puff inhalation BID 11/16/24 12/17/24 History mcg-salmeterol 21 mcg/actuation HFA inhaler (Advair HFA) metoprolol succinate 25 mg 25 mg PO DAILY 30 days #30 tabs 11/16/24 12/17/24 Rx tablet,extended release 24 hr tiotropium bromide 2.5 1 inh inhalation DAILY 11/16/24 12/17/24 History mcg/actuation mist for inhalation (Spiriva Respimat) New Prescriptions to Start Prescriptions: Allergies Allergy/AdvReac Type Severity Reaction Status Date / Time No Known Allergies Allergy Verified 12/17/24 13:06 Exam Data for Last 24 hours Vital signs and Labs for Last 24 Hours: Temp Pulse Resp BP Pulse Ox O2 Del Method O2 Flow Rate 98.3 F 100 H 17 101/67 L 96 Room Air 10 12/17/24 17:06 12/17/24 17:06 12/17/24 17:06 12/17/24 17:06 12/17/24 17:06 12/17/24 17:06 12/17/24 14:00 Laboratory Results - last 24 hr 12/17/24 13:59: WBC 19.0 H, RBC 4.71, Hgb 13.9 L, Hct 40.8 L, MCV 86.6, MCH 29.5, MCHC 34.1, RDW 12.7, Plt Count 178, MPV 10.5 H, Neut % (Auto) 89.7 H, Lymph % (Auto) 2.9 L, [place] % (Auto) 6.3, Eos % (Auto) 0.0 L, Baso % (Auto) 0.2, Neut # (Auto) 17.1 H, Lymph # (Auto) 0.6 L, [place] # (Auto) 1.2 H, Eos # (Auto) 0.0, Baso # (Auto) 0.0, Sodium 132 L, Potassium 3.7, Chloride 94 L, Carbon Dioxide 31 H, Anion Gap 10.7, BUN 9, Creatinine 0.60 L, Estimated Creat Clear 117, Estimated GFR 142, Est GFR ( Amer) 172, Glucose 111 H, Lactate 1.4, Calcium 9.0, Magnesium 1.5 L, Total Bilirubin 0.9, AST 22, ALT 17, Alkaline Phosphatase 103, Troponin I < 0.01, Total Protein 7.2, Albumin 3.8, Globulin 3.4 H, Albumin/Globulin Ratio 1.1, Lipase 23 12/17/24 14:23: Urine Color Yellow, Urine Appearance Clear, Urine pH 6.0, Ur Specific [place] 1.025, Urine Protein 1+ A, Urine Glucose (UA) Negative, Urine Ketones Negative, Urine Blood 1+ A, Urine Nitrate Negative, Urine Bilirubin 1+ A, Urine Urobilinogen 2.0, Ur Leukocyte Esterase Negative, Urine RBC Occasional, Urine WBC None, Ur Squamous Epith Cells Occasional, Urine Bacteria None, Urine Mucus 1+ I & O for Last 24 hours: Intake & Output 12/14/24 12/15/24 12/16/24 12/17/24 23:59 23:59 23:59 23:59 Weight 57.153 kg Constitutional Constitutional: no acute distress *Routine HEENT Exam Head: Present normocephalic Eye: Present EOMI and PERRL ENT: Present mucous membranes moist *Routine Neck Exam Neck: Present supple; Absent lymphadenopathy *Routine Respiratory Exam Respiratory: Present CTA bilaterally *Routine Cardiovascular Exam Cardiovascular: Present RRR *Routine Abdominal Exam Abdominal: Present soft and normoactive bowel sounds; Absent tenderness *Routine Rectal Exam Rectal:: deferred *Routine Genitalia Exam Genitalia:: deferred *Routine Extremities Exam Extremities: Absent cyanosis, clubbing or edema *Routine Skin Exam Skin: Present warm; Absent rash *Routine Neurological Exam Neurological: Present alert and oriented X3 Assessment and Plan *Assessment and plan (1) Sepsis: Status: Acute Category: Medical Code(s): A41.9 - Sepsis, unspecified organism (2) Cavitary lesion of lung: Status: Acute Category: Medical Code(s): J98.4 - Other disorders of lung (3) Chronic obstructive pulmonary disease: Status: Acute Category: Medical Code(s): J44.9 - Chronic obstructive pulmonary disease, unspecified (4) Opioid use disorder in remission: Status: Acute Category: Medical Code(s): F11.91 - Opioid use, unspecified, in remission Plan Reuben Lang is a 49-year-old male with medical history significant for 20 pack smoking history, COPD on room air, former opioid use disorder on methadone daily, who presents with 2-day onset of left-sided pleuritic chest pain, productive cough, and shortness of breath. He states symptoms have progressively worsened, was evaluated by pulmonology in the clinic today and was advised to come to the ED. Workup in the ED significant for WBC 19 with tachycardia and tachypnea. CTA chest revealed severe left upper lobe pneumonia with multiple suspected cavitary lesions. Case discussed with ED provider and she was made to admit patient for sepsis secondary to community-acquired pneumonia. #Sepsis #Community-acquired pneumonia #Cavitary lesion ? Presented with 2-day onset of left-sided pleuritic chest pain, productive, shortness of breath. Initial WBC 19, with tachycardia and tachypnea. ? CTA chest revealed interval development of severe left upper lobe pneumonia with consolidation and numerous air-fluid levels within bullous lesions. Mild progression of right upper lobe cavitary lesions, which may be secondary to atypical or fungal disease, less likely neoplasm. ? Pulmonology was consulted by the ED, recommended admission for bronchoscopy in the morning. N.p.o. at midnight. ? Started Zosyn, doxycycline day 1. Follow-up sputum, MRSA, blood cultures, AFB, full respiratory panel. ? Follow-up morning CBC. #COPD ? Currently on room air. Stable. Continue home Advair, Spiriva. #Former opioid use disorder ? Continue home methadone once reconciled. Full code DVT prophylaxis: Lovenox 40 mg
[2024-12-17 20:37] LABS: Adenovirus,PCR Not Detected (NotDetected); Chlamydophila Pneumoniae, PCR Not Detected (NotDetected); Coronavirus 19, PCR Not Detected (NotDetected); Coronovirus HKU1,PCR Not Detected (NotDetected); Influenza A, PCR Not Detected (NotDetected); Influenza AH1, 2009 Not Detected (NotDetected); Influenza AH1, PCR Not Detected (NotDetected); Influenza AH3,PCR Not Detected (NotDetected); Influenza B, PCR Not Detected (NotDetected); Mycoplasma Pneumoniae, PCR Not Detected (NotDetected); Parainfluenza 1, PCR Not Detected (NotDetected); Parainfluenza 2, PCR Not Detected (NotDetected); Parainfluenza 4, PCR Not Detected (NotDetected)
[2024-12-17] MEDS: DOXYCYCLINE HYCLATE 100 MG in 0.9 % SODIUM CHLORIDE 250 ML 166.667 MG IV (20:37)
[2024-12-17] MEDS: PIPERCILLIN/TAZO 3.375 GM in 0.9 % SODIUM CHLORIDE 50 ML IV (21:00)
[2024-12-17] MEDS: ATORVASTATIN 40MG TABLET 40 MG PO (21:55)
[2024-12-17 22:10] LABS: Parainfluenza 3, PCR Detected (NotDetected)
[2024-12-17] MEDS: SODIUM CHLORIDE 3% 15ML NEB 3 ML IH (22:30)
[2024-12-18] VITALS (19 sets, daily range): BP systolic 101–120; BP diastolic 58–72; PULSE 69–113; RESP 12–20; TEMP 36.1–36.8; O2SAT 94–99; BMI 18.1
[2024-12-18 00:52] LABS: MRSA DNA PCR Negative (Negative)
[2024-12-18] MEDS: PIPERCILLIN/TAZO 3.375 GM in 0.9 % SODIUM CHLORIDE 50 ML IV ×4 (02:00→19:58)
[2024-12-18 05:39] LABS: Hematocrit 36.1 % (42.0-52.0); Immature Granulocytes % 0.7 %; Mean Corpuscular HGB Conc 32.7 g/dL (31.8-35.4); Mean Corpuscular Hemoglobin 28.4 pg (27.0-31.2); Mean Corpuscular Volume 86.8 fl (80-94); Nucleated Red Blood Cells % 0 %; Platelet Count 161 K/mm3 (142-424); Red Blood Count 4.16 M/mm3 (4.60-6.20); Red Cell Distribution Width-SD 40.4 fL; White Blood Count 13.1 K/mm3 (4.8-10.8)
[2024-12-18 05:43] LABS: Hemoglobin 11.8 g/dL (14.1-18.0)
[2024-12-18 05:48] LABS: Alanine Aminotransferase 14 U/L (12-78); Albumin Level 3.2 g/dl (3.5-5.0); Albumin/Globulin Ratio 1.1 (1.1-1.8); Alkaline Phosphatase 87 U/L (38-126); Anion Gap 13.4 mEq/L (5-15); Aspartate Amino Transferase 21 U/L (17-59); Bilirubin,Total 0.5 mg/dl (0.2-1.3); Blood Urea Nitrogen 9 mg/dl (9-20); Calcium 9.2 mg/dl (8.4-10.2); Carbon Dioxide 29 mmol/L (22.0-30.0); Chloride 101 mmol/L (98-107); Creatinine Clearance Estimated 142 mL/min (50-200); Creatinine,Serum 0.50 mg/dl (0.66-1.25); Estimated Glomerular Filt Rate 175 ml/min (>60); GFR (African American) 212 ML/MIN (>60); Globulin 3.0 g/dL (1.3-3.2); Glucose 120 mg/dl (74-100); Potassium 3.4 mmoL/L (3.5-5.1); Sodium 140 mmol/L (136-145); Total Protein,Serum 6.2 g/dl (6.3-8.2)
--- NOTE | 2024-12-18 06:01 | PC.NURSE ---
pt tolerated IV ABX. v/s, ox4, RA. no acute events to report. Plan of car ongoing.
[2024-12-18 06:10] LABS: Total Cells Counted 100
--- NOTE | 2024-12-18 07:43 | P.CONPHA_ITS ---
Pharmacy Intervention Comments: CONFIRMED PATIENT'S HOME METHADONE DOSE WITH [facility] [place] [phone]. PATIENT PRESCRIBED 80 MG DAILY, LAST FILLED 11/23/24 FOR 30 DAY SUPPLY.
--- NOTE | 2024-12-18 07:43 | HMH.PHAINT1 ---
Pharmacy Intervention Comments: CONFIRMED PATIENT'S HOME METHADONE DOSE WITH [facility] [place] [phone]. PATIENT PRESCRIBED 80 MG DAILY, LAST FILLED 11/23/24 FOR 30 DAY SUPPLY.
[2024-12-18] MEDS: ASPIRIN 81MG CHEWABLE TABLET 81 MG PO (08:26)
[2024-12-18] MEDS: METOPROLOL SUCCINATE XL 25MG TABLET 25 MG PO (08:26)
--- NOTE | 2024-12-18 09:07 | EXP.PULM.CON ---
History of Present Illness History of present illness: Mr. Lang is a 49-year-old male greater than [id number] smoking history carries a prior diagnosis of COPD recently seen in the hospital for pneumonia COPD exacerbation right upper lobe N presented to clinic for worsening respiratory chest pain sent to the ER with a CT chest performed showing left upper lobar consolidative changes admitted to the hospital for further evaluation and management. Patient also complains of nausea vomiting unable to tolerate p.o. intake. [facility] Disclaimer: The information contained in this section may have been updated after the patient was seen, as this information can be updated by other users. Medical History (Updated 12/18/24 @ 12:23 by Re Orr MD) Pneumonia Influenza A Distal radius fracture, left Calcaneal fracture Mediastinal lymphadenopathy Hilar lymphadenopathy Cavitary lesion of lung Opioid use disorder in remission Parainfluenza Chronic obstructive pulmonary disease Family History Other No significant family history Social History (Updated 12/17/24 @ 16:35 by Medina Hancock RN) Smoking Status: Current every day smoker tobacco type: cigarettes packs per day: 1 second hand exposure: No alcohol intake: never substance use type: former substance user, opiates, painkillers and prescription drug current occupational status: other Travel in the last 8 weeks?: None household members: significant other housing: house caffeine: Yes Have you lived/traveled outside US in past 30 days?: No Contact w/someone who lives/traveled outside US past 30 days?: No Exposure to someone with infectious disease in past 14 days?: No Do you have a fever (greater than 100.4 F or 38 C)?: No Have you tested positive for COVID-19?: No Exposed to someone with COVID-19 in past 14 days?: No Do you have a sore throat?: No Do you have a cough?: No Do you have any weakness?: No Are you experiencing any nausea/vomitting?: No Do you have any diarrhea?: No Are you experiencing any unusual bleeding?: No Do you have any muscle aches/pain?: No Do you have any abdominal pain?: No Are you experiencing loss of taste or smell?: No Review of Systems Constitutional Constitutional: Reports fatigue and Reports weakness Eyes Eyes: Denies eye discharge, Denies dry eyes, Denies irritation and Denies itchy eyes ENT Ears, Nose, Mouth, and Throat: Denies lip swelling, Denies throat swelling and Denies vertigo *Cardiovascular Cardiovascular: Reports dyspnea and Reports dyspnea on exertion *Respiratory Respiratory: Reports change in phlegm color, Reports chest congestion, Reports cough, Reports dyspnea, Reports dyspnea on exertion, Reports excessive phlegm production, Denies hemoptysis, Reports pain on inspiration, Reports pain with cough and Denies wheezing *Gastrointestinal Gastrointestinal: Denies abdominal pain, Denies belching and Denies cramping *Musculoskeletal Musculoskeletal: Reports back pain, Reports myalgias and Reports other (No small joint swelling or Pain) *Neurologic Neurologic: Denies confusion, Denies vertigo and Reports weakness Psychiatric Psychiatric: Denies confusion Endocrine Endocrine: Reports fatigue and Denies heat intolerance Hematologic/Lymphatic Hematologic/Lymphatic: Denies easy bleeding and Denies lymphadenopathy Allergic/Immunologic Allergic/Immunologic: Denies itchy eyes, Denies lip swelling, Denies throat swelling and Denies wheezing Pulmonology Exam Inpatient Vital signs and Labs for Last 24 Hours: Temp Pulse Resp BP Pulse Ox O2 Del Method O2 Flow Rate 97.7 F 87 18 105/71 L 94 L Room Air 10 12/18/24 04:00 12/18/24 04:00 12/18/24 04:00 12/18/24 04:00 12/18/24 04:00 12/18/24 08:00 12/17/24 14:00 Laboratory Results - last 24 hr 12/17/24 13:59: WBC 19.0 H, RBC 4.71, Hgb 13.9 L, Hct 40.8 L, MCV 86.6, MCH 29.5, MCHC 34.1, RDW 12.7, Plt Count 178, MPV 10.5 H, Neut % (Auto) 89.7 H, Lymph % (Auto) 2.9 L, [place] % (Auto) 6.3, Eos % (Auto) 0.0 L, Baso % (Auto) 0.2, Neut # (Auto) 17.1 H, Lymph # (Auto) 0.6 L, [place] # (Auto) 1.2 H, Eos # (Auto) 0.0, Baso # (Auto) 0.0, Sodium 132 L, Potassium 3.7, Chloride 94 L, Carbon Dioxide 31 H, Anion Gap 10.7, BUN 9, Creatinine 0.60 L, Estimated Creat Clear 117, Estimated GFR 142, Est GFR ( Amer) 172, Glucose 111 H, Lactate 1.4, Calcium 9.0, Magnesium 1.5 L, Total Bilirubin 0.9, AST 22, ALT 17, Alkaline Phosphatase 103, Troponin I < 0.01, Total Protein 7.2, Albumin 3.8, Globulin 3.4 H, Albumin/Globulin Ratio 1.1, Lipase 23 12/17/24 14:23: Urine Color Yellow, Urine Appearance Clear, Urine pH 6.0, Ur Specific [place] 1.025, Urine Protein 1+ A, Urine Glucose (UA) Negative, Urine Ketones Negative, Urine Blood 1+ A, Urine Nitrate Negative, Urine Bilirubin 1+ A, Urine Urobilinogen 2.0, Ur Leukocyte Esterase Negative, Urine RBC Occasional, Urine WBC None, Ur Squamous Epith Cells Occasional, Urine Bacteria None, Urine Mucus 1+ 12/17/24 19:05: Chlamy pneumoniae PCR Not detected, Adenovirus (PCR) Not detected, B. pertussis DNA (PCR) Not detected, Coronavirus OC43 (PCR) Not detected, Coronavirus HKU1 (PCR) Not detected, Coronavirus 229E (PCR) Not detected, SARS-CoV-2 (PCR) Not detected, Coronavirus NL63 (PCR) Not detected, Human Metapneumovir PCR Not detected, Influenza A (H1) PCR Not detected, Influ A (H1N1/09) PCR Not detected, Influenza A (H3) PCR Not detected, Influenza Type A (PCR) Not detected, Influenza Type B (PCR) Not detected, M. pneumoniae (PCR) Not detected, Parainfluenza 1 (PCR) Not detected, Parainfluenza 2 (PCR) Not detected, Parainfluenza 3 (PCR) Detected A, Parainfluenza 4 (PCR) Not detected, RSV (PCR) Not detected, Entero/Rhino (PCR) Not detected 12/17/24 19:58: MRSA (PCR) Negative 12/18/24 04:03: WBC 13.1 H D, RBC 4.16 L, Hgb 11.8 L D, Hct 36.1 L, MCV 86.8, MCH 28.4, MCHC 32.7, RDW 12.8, Plt Count 161, MPV 11.2 H, Neut % (Auto) 91.4 H, Lymph % (Auto) 3.7 L, [place] % (Auto) 4.1, Eos % (Auto) 0.0 L, Baso % (Auto) 0.1, Neut # (Auto) 12.0 H, Lymph # (Auto) 0.5 L, [place] # (Auto) 0.5, Eos # (Auto) 0.0, Baso # (Auto) 0.0, Total Counted 100, Neutrophils % (Manual) 92 H, Lymphocytes % (Manual) 6 L, Monocytes % (Manual) 2, Platelet Estimate Not Reportable, RBC Morphology Not Reportable, Sodium 140, Potassium 3.4 L, Chloride 101, Carbon Dioxide 29, Anion Gap 13.4, BUN 9, Creatinine 0.50 L, Estimated Creat Clear 142, Estimated GFR 175, Est GFR ( Amer) 212 D, Glucose 120 H, Calcium 9.2, Total Bilirubin 0.5, AST 21, ALT 14, Alkaline Phosphatase 87, Total Protein 6.2 L, Albumin 3.2 L D, Globulin 3.0, Albumin/Globulin Ratio 1.1 I & O for Labs for Last 24 Hours: Intake & Output 12/15/24 12/16/24 12/17/24 12/18/24 23:59 23:59 23:59 23:59 Intake Total 290 / 290 Output Total 0 / 0 Balance 0 / 240 290 / 290 Weight 126 lb 126 lb 11.2 oz Microbiology Reports for the Last 24 Hours: Microbiology 12/17/24 22:37 Sputum - Expectorated Sputum Gram Stain - Final Constitutional: Present mild distress Head: Present normocephalic and atraumatic ENT: Present normal exam, normal oropharynx and mucous membranes moist Neck: Present normal inspection and full ROM Respiratory: Present respiratory distress, rhonchi, diminished air movement, normal respiratory effort and able to speak in complete sentences; Absent wheezes Cardiac: Present S1/S2, Tachycardia and radial pulses present GI: Present soft and distention; Absent tenderness or guarding Skin: Present intact; Absent cyanosis or jaundice Neuro: Present alert, awake and oriented x 3 Extremities: Present normal inspection; Absent clubbing or cyanosis Psychiatric: Present normal affect and cooperative Meds Home Medications and Allergies Home Medications ?Medication ?Instructions ?Recorded ?Confirmed ?Type albuterol sulfate 90 mcg/actuation 1 puff inhalation DIRECTED 07/08/24 12/17/24 History aerosol inhaler methadone 10 mg tablet 80 mg PO DAILY 07/08/24 12/17/24 History aspirin 81 mg chewable tablet 81 mg PO DAILY 30 days #30 tabs 11/16/24 12/17/24 Rx atorvastatin 40 mg tablet 40 mg PO HS 30 days #30 tabs 11/16/24 12/17/24 Rx fluticasone propionate 230 1 puff inhalation BIDRT 11/16/24 12/18/24 History mcg-salmeterol 21 mcg/actuation HFA inhaler (Advair HFA) metoprolol succinate 25 mg 25 mg PO DAILY 30 days #30 tabs 11/16/24 12/17/24 Rx tablet,extended release 24 hr tiotropium bromide 2.5 1 inh inhalation DAILY 11/16/24 12/17/24 History mcg/actuation mist for inhalation (Spiriva Respimat) New Prescriptions to Start Prescriptions: Allergies Allergy/AdvReac Type Severity Reaction Status Date / Time Muscle Relaxers Allergy Severe Anaphylaxis Uncoded 12/18/24 10:15 Results Laboratory Findings 12/18/24 04:03 12/18/24 04:03 Abnormal lab findings: Abnormal Labs 12/17/24 12/17/24 12/17/24 13:59 14:23 19:05 WBC 19.0 H RBC Hgb 13.9 L Hct 40.8 L MPV 10.5 H Neut % (Auto) 89.7 H Lymph % (Auto) 2.9 L Eos % (Auto) 0.0 L Neut # (Auto) 17.1 H Lymph # (Auto) 0.6 L [place] # (Auto) 1.2 H Neutrophils % (Manual) Lymphocytes % (Manual) Sodium 132 L Potassium Chloride 94 L Carbon Dioxide 31 H Creatinine 0.60 L Glucose 111 H Magnesium 1.5 L Total Protein Albumin Globulin 3.4 H Urine Protein 1+ A Urine Blood 1+ A Urine Bilirubin 1+ A Parainfluenza 3 (PCR) Detected A 12/18/24 04:03 WBC 13.1 H D RBC 4.16 L Hgb 11.8 L D Hct 36.1 L MPV 11.2 H Neut % (Auto) 91.4 H Lymph % (Auto) 3.7 L Eos % (Auto) 0.0 L Neut # (Auto) 12.0 H Lymph # (Auto) 0.5 L [place] # (Auto) Neutrophils % (Manual) 92 H Lymphocytes % (Manual) 6 L Sodium Potassium 3.4 L Chloride Carbon Dioxide Creatinine 0.50 L Glucose 120 H Magnesium Total Protein 6.2 L Albumin 3.2 L D Globulin Urine Protein Urine Blood Urine Bilirubin Parainfluenza 3 (PCR) Assessment and Plan *Assessment and plan (1) Pneumonia: Status: Acute Category: Medical Code(s): J18.9 - Pneumonia, unspecified organism Plan Mr. Lang is a 49-year-old male greater than [id number] smoking history carries a prior diagnosis of COPD recently seen in the hospital for pneumonia COPD exacerbation right upper lobe N presented to clinic for worsening respiratory chest pain sent to the ER with a CT chest performed showing left upper lobar consolidative changes admitted to the hospital for further evaluation and management. Patient also complains of nausea vomiting unable to tolerate p.o. intake. CTA PE protocol admission no pulmonary embolism. Left upper lobe consolidative changes. Continued to show right upper lobe cavitary lesion worsening from prior. Neutrophil from leukocytosis upon admission improving. Nasal MRSA PCR negative Parainfluenza viral PCR panel negative. No recent sputum or blood cultures available. TB QuantiFERON negative. On examination moderate respiratory distress. On room air. Rhonchorous breath sounds. Plan: Follow up sputum AFB Gram stain culture result Continue Zosyn pending final sputum culture results Trelegy 100 inhaler along with DuoNebs 4 times daily as needed Follow with final sputum culture results Schedule for bronchoscopy transbronchial biopsy Continue oxygen supplementation on as-needed basis to maintain O2 saturation goal of 90% and above # Thank you for involving pulmonary in this patient care. Will continue to follow
[2024-12-18] MEDS: DOXYCYCLINE HYCLATE 100 MG in 0.9 % SODIUM CHLORIDE 250 ML 166.667 MG IV ×2 (09:21→20:36)
--- NOTE | 2024-12-18 10:14 | EXP.ANES.CKL ---
[facility] Disclaimer: The information contained in this section may have been updated after the patient was seen, as this information can be updated by other users. Medical History (Updated 12/17/24 @ 16:41 by Jc Garcia RN) Influenza A Distal radius fracture, left Calcaneal fracture Mediastinal lymphadenopathy Hilar lymphadenopathy Cavitary lesion of lung Opioid use disorder in remission Parainfluenza Chronic obstructive pulmonary disease Family History Other No significant family history Social History (Updated 12/17/24 @ 16:35 by Medina Hancock RN) Smoking Status: Current every day smoker tobacco type: cigarettes packs per day: 1 second hand exposure: No alcohol intake: never substance use type: former substance user, opiates, painkillers and prescription drug current occupational status: other Travel in the last 8 weeks?: None household members: significant other housing: house caffeine: Yes Have you lived/traveled outside [place] in past 30 days?: No Contact w/someone who lives/traveled outside US past 30 days?: No Exposure to someone with infectious disease in past 14 days?: No Do you have a fever (greater than 100.4 F or 38 C)?: No Have you tested positive for COVID-19?: No Exposed to someone with COVID-19 in past 14 days?: No Do you have a sore throat?: No Do you have a cough?: No Do you have any weakness?: No Are you experiencing any nausea/vomitting?: No Do you have any diarrhea?: No Are you experiencing any unusual bleeding?: No Do you have any muscle aches/pain?: No Do you have any abdominal pain?: No Are you experiencing loss of taste or smell?: No [facility] Anesthesia Checklist Patient Identification Patient Identification: Verbal (Name & ) Structural Data Admitted From: Inpatient Planned Operative Procedure/s: bronchoscopy NPO Status Verified Time NPO: 00:00 Additional verifications Anesthesia Reactions: No Hx Blood Transfusions: No Blood Transfusion Reaction: No Airway Assessment Mallampati Score:: Class II C-Spine Mobility Assessed: Yes TMJ Mobility Assessed: Yes Dentition: Good Dentition Neurological Assessment Level of Consciousness: Awake, Alert and Appropriate Anesthesia Plan Anesthesia Risk discussed: Yes Anesthesia Plan: Verified ASA Class: II Anesthesia Type: MAC
--- NOTE | 2024-12-18 10:54 | XR_ITS ---
FINAL REPORT CLINICAL HISTORY: BRONCH WITH BIOPSY 12.47 MgY 1.39 MIN FINDINGS: A single fluoroscopic image was obtained of the chest.12.47 MgY 1.39 MIN IMPRESSION: 12.47 MgY 1.39 MIN Reviewed, Interpreted and Dictated by Niurka Morley MD Transcribed by Sariah Guzman Authenticated and [facility]
--- NOTE | 2024-12-18 11:06 | XR_ITS ---
FINAL REPORT CLINICAL HISTORY: Post bronch COMPARISON: Chest CT dated 12/17/2024 FINDINGS: CHEST 1 VIEW There is a left upper lobe consolidation. There are chronic changes in the bilateral lung apices. There is no pneumothorax. There is no pleural fluid collection. IMPRESSION: Stable chest exam without evidence of pneumothorax. Reviewed, Interpreted and Dictated by Niurka Morley MD Transcribed by Elizabeth Ngo Authenticated and [facility]
--- NOTE | 2024-12-18 11:08 | EXP.ANES.I ---
[facility] Anesthesia Record Part I Anesthesia Record I Intake, IV Amount: 450 Hydration: Adequate Estimated blood loss (mL): 0 Urine output (mL): 0 Blood Products used (#): none Blood Pressure: 104/63 SaO2: 95 Pulse Rate: 75 Airway Patency: Patent Respiratory Rate: 14 Temperature: 97.0 F Patient is:: Awake, Nasal O2 and Stable Stable to PACU at:: 11:02
[2024-12-18] MEDS: MORPHINE 2MG/ML SYRINGE 1 MG IV (11:25)
[2024-12-18] MEDS: IPRATROPIUM/ALBUTEROL 3 ML NEB IH (11:25)
--- NOTE | 2024-12-18 11:42 | PC.NURSE ---
Pt. back from procedure.
--- NOTE | 2024-12-18 11:52 | SUR.PHASEI ---
1137- Patient's VSS. Patient has had cough which has caused back pain that was elevated with 1mg morphine. 1140- Detailed report called to med/surgery teacherOleksandr CHERRY. 1141- Patient transfer via bed to [id number]. RN at bedside. Patient stable.
--- NOTE | 2024-12-18 12:24 | P.PCN_ITS ---
Procedure: Date: 12/18/24 Patient Date of :: 1975 Procedure Performed:: Bronchoscopy airway examination, bronchoalveolar lavage and transbronchial lung biopsy Indications:: Pneumonia Performing Provider:: Re Orr MD Referring Provider:: Sedation:: General anesthesia Procedure:: Bronchoscopy airway examination, bronchoalveolar lavage and transbronchial lung biopsy: A clean DIAGNOSTIC bronchoscopy was advanced through the ET tube and airways were examined up to subsegmental bronchi. Airways appeared grossly normal, no evidence of mucoid secretions, mucous plugging active bleeding/old blood clots noted. Bronchoalveolar lavage was performed in the LEFT UPPER LOBE with instillation of 60 cc normal saline with return of 30 cc back. BAL fluid was sent for cell coun t and differential along with bacterial fungal and AFB stain and cultures. BAL fluid was also sent for cytology. Bronchoalveolar lavage was performed in the RIGHT UPPER LOBE with instillation of 60 cc normal saline with return of 25 cc back. BAL fluid was sent for cell count and differential along with bacterial fungal and AFB stain and cultures. Not sent for cytology for the BAL sample from right upper lobe. Transbronchial biopsy was performed in the LEFT UPPER LOBE with a total of 7 biopsies performed, 5 biopsy specimens were sent in formalin for cytopathologic examination. The other 2 biopsy samples, were sent one each in two separate normal saline specimen cups for bacterial fungal and AFB stain cultures. Special request was also made for the pathologist to evaluate for AFB and fungal organisms on the cytopathologic examination. Patient tolerated the procedure with no immediate acute complications. We will follow the patient in pulmonary clinic in 7 to 10 days. Findings:: Please see the procedure note Recommendations:: Postoperative bronchoscopy instructions Follow the recommendations from today's consultation note Complications:: No acute immediate complication Estimated blood obtained (mL): 2
--- NOTE | 2024-12-18 12:29 | SUR.PHASEI ---
1110- Respiratory at bedside to do breathing treatment. 1125- 1mg morphine given IV.
[2024-12-18 12:38] LABS: C-Reactive Protein 290.1 mg/L (0-4)
[2024-12-18] MEDS: AZITHROMYCIN 500 MG in 0.9 % SODIUM CHLORIDE 250 ML 250 MG IV (15:58)
--- NOTE | 2024-12-18 16:29 | PC.NURSE ---
Aox 4, up as lane, on RA, 20g R AC SL, bronchoscopy done with biopsy's taken, on abx.
[2024-12-18] MEDS: NICOTINE 21MG/24HR PATCH 21 MG TD (20:08)
[2024-12-18] MEDS: ATORVASTATIN 40MG TABLET 40 MG PO (20:36)
[2024-12-18] MEDS: CALCIUM CARBONATE 500MG CHEWTAB 1000 MG PO (21:01)
--- NOTE | 2024-12-18 22:07 | P.PN_ITS ---
Subjective *Date: 12/20/24 *Time: 11:21 Interval history: Patient feels slightly better today, bronchoscopy scheduled for this morning. Exam Data for Last 24 hours Vital signs and Labs for Last 24 Hours: Temp Pulse Resp BP Pulse Ox O2 Del Method O2 Flow Rate 98.1 F 69 12 101/65 L 96 Room Air 2 12/18/24 20:00 12/18/24 20:00 12/18/24 20:00 12/18/24 20:00 12/18/24 20:00 12/18/24 21:00 12/18/24 12:39 Laboratory Results - last 24 hr 12/17/24 19:05: Chlamy pneumoniae PCR Not detected, Adenovirus (PCR) Not dete cted, B. pertussis DNA (PCR) Not detected, Coronavirus OC43 (PCR) Not detected, Coronavirus HKU1 (PCR) Not detected, Coronavirus 229E (PCR) Not detected, SARS-CoV-2 (PCR) Not detected, Coronavirus NL63 (PCR) Not detected, Human Metapneumovir PCR Not detected, Influenza A (H1) PCR Not detected, Influ A (H1N1/09) PCR Not detected, Influenza A (H3) PCR Not detected, Influenza Type A (PCR) Not detected, Influenza Type B (PCR) Not detected, M. pneumoniae (PCR) Not detected, Parainfluenza 1 (PCR) Not detected, Parainfluenza 2 (PCR) Not detected, Parainfluenza 3 (PCR) Detected A, Parainfluenza 4 (PCR) Not detected, RSV (PCR) Not detected, Entero/Rhino (PCR) Not detected 12/17/24 19:58: MRSA (PCR) Negative 12/18/24 04:03: WBC 13.1 H D, RBC 4.16 L, Hgb 11.8 L D, Hct 36.1 L, MCV 86.8, MCH 28.4, MCHC 32.7, RDW 12.8, Plt Count 161, MPV 11.2 H, Neut % (Auto) 91.4 H, Lymph % (Auto) 3.7 L, [place] % (Auto) 4.1, Eos % (Auto) 0.0 L, Baso % (Auto) 0.1, Neut # (Auto) 12.0 H, Lymph # (Auto) 0.5 L, [place] # (Auto) 0.5, Eos # (Auto) 0.0, Baso # (Auto) 0.0, Total Counted 100, Neutrophils % (Manual) 92 H, Lymphocytes % (Manual) 6 L, Monocytes % (Manual) 2, Platelet Estimate Not Reportable, RBC Morphology Not Reportable, Sodium 140, Potassium 3.4 L, Chloride 101, Carbon Dioxide 29, Anion Gap 13.4, BUN 9, Creatinine 0.50 L, Estimated Creat Clear 142, Estimated GFR 175, Est GFR ( Amer) 212 D, Glucose 120 H, Calcium 9.2, Total Bilirubin 0.5, AST 21, ALT 14, Alkaline Phosphatase 87, C-Reactive Protein 290.1 H, Total Protein 6.2 L, Albumin 3.2 L D, Globulin 3.0, Albumin/Globulin Ratio 1.1 I & O for Last 24 hours: Intake & Output 12/15/24 12/16/24 12/17/24 12/18/24 23:59 23:59 23:59 23:59 Intake Total 1800 / 1800 Output Total 0 / 0 300 / 300 Balance 0 / 240 1500 / 1500 Weight 57.153 kg 57.47 kg Microbiology Reports for the Last 24 Hours: Microbiology 12/18/24 10:34 Bronchial Washings - Left Upper Lobe Gram Stain - Final 12/18/24 10:34 Transbronchial Biopsy - Left Upper Lobe Gram Stain - Final 12/17/24 14:15 Blood Blood Culture - Preliminary NO GROWTH AFTER 24 HOURS 12/17/24 13:59 Blood Blood Culture - Preliminary NO GROWTH AFTER 24 HOURS 12/17/24 22:37 Sputum - Expectorated Sputum Gram Stain - Final Constitutional Constitutional: no acute distress and cachectic *Routine HEENT Exam Head: Present normocephalic Eye: Present EOMI and PERRL ENT: Present mucous membranes moist *Routine Neck Exam Neck: Present supple; Absent lymphadenopathy *Routine Respiratory Exam Respiratory: Present CTA bilaterally *Routine Cardiovascular Exam Cardiovascular: Present RRR *Routine Abdominal Exam Abdominal: Present soft and normoactive bowel sounds; Absent tenderness *Routine Extremities Exam Extremities: Absent cyanosis, clubbing or edema *Routine Skin Exam Skin: Present warm; Absent rash *Routine Neurological Exam Neurological: Present alert and oriented X3 Assessment and Plan *Assessment and plan (1) Sepsis: Status: Acute Category: Medical Code(s): A41.9 - Sepsis, unspecified organism (2) Cavitary lesion of lung: Status: Acute Category: Medical Code(s): J98.4 - Other disorders of lung (3) Chronic obstructive pulmonary disease: Status: Acute Category: Medical Code(s): J44.9 - Chronic obstructive pulmonary disease, unspecified (4) Opioid use disorder in remission: Status: Acute Category: Medical Code(s): F11.91 - Opioid use, unspecified, in remission Plan Reuben Lang is a 49-year-old male with medical history significant for 20 pack smoking history, COPD on room air, former opioid use disorder on methadone daily, who presents with 2-day onset of left-sided pleuritic chest pain, productive cough, and shortness of breath. He states symptoms have progressively worsened, was evaluated by pulmonology in the clinic today and was advised to come to the ED. Workup in the ED significant for WBC 19 with tachycardia and tachypnea. CTA chest revealed severe left upper lobe pneumonia with multiple suspected cavitary lesions. Case discussed with ED provider and she was made to admit patient for sepsis secondary to community-acquired pneumonia. #Sepsis #Community-acquired pneumonia #Cavitary lesion ? Presented with 2-day onset of left-sided pleuritic chest pain, productive, shortness of breath. Initial WBC 19, with tachycardia and tachypnea. ? CTA chest revealed interval development of severe left upper lobe pneumonia with consolidation and numerous air-fluid levels within bullous lesions. Mild progression of right upper lobe cavitary lesions, which may be secondary to atypical or fungal disease, less likely neoplasm. ? Pulmonology was consulted by the ED, s/p bronchoscopy on 12/18/2024 with BAL cultures. Follow-up on cultures. - WBC improved to 13.1, patient improving. ? Continue Zosyn, doxycycline day 2. Follow-up sputum, MRSA, blood cultures, AFB, full respiratory panel. ? Follow-up morning CBC. #COPD ? Currently on room air. Stable. Continue home Advair, Spiriva. #Former opioid use disorder ? Continue home methadone once reconciled. Full code DVT prophylaxis: Lovenox 40 mg
[2024-12-19] VITALS (7 sets, daily range): BP systolic 95–117; BP diastolic 52–93; PULSE 61–96; RESP 12–18; TEMP 36.4–37.2; O2SAT 92–97; BMI 18.8
[2024-12-19] MEDS: PIPERCILLIN/TAZO 3.375 GM in 0.9 % SODIUM CHLORIDE 50 ML IV ×4 (02:16→20:57)
[2024-12-19] MEDS: CALCIUM CARBONATE 500MG CHEWTAB 1000 MG PO (02:27)
--- NOTE | 2024-12-19 06:35 | PC.NURSE ---
No acute changes throughout shift. Pt continues to tolerate RA well with sat in mid 90s. Exp/Insp rhonchi heard throughout lung holguin. Ambulating to bathroom independently. Call light within reach.
[2024-12-19] MEDS: METOPROLOL SUCCINATE XL 25MG TABLET 25 MG PO (09:02)
[2024-12-19] MEDS: ASPIRIN 81MG CHEWABLE TABLET 81 MG PO (09:02)
[2024-12-19] MEDS: ONDANSETRON 4MG/2ML VIAL 4 MG IV ×2 (09:03→17:39)
[2024-12-19 09:40] LABS: Hematocrit 34.5 % (42.0-52.0); Hemoglobin 11.3 g/dL (14.1-18.0); Immature Granulocytes % 0.4 %; Mean Corpuscular HGB Conc 32.8 g/dL (31.8-35.4); Mean Corpuscular Hemoglobin 28.6 pg (27.0-31.2); Mean Corpuscular Volume 87.3 fl (80-94); Nucleated Red Blood Cells % 0 %; Platelet Count 199 K/mm3 (142-424); Red Blood Count 3.95 M/mm3 (4.60-6.20); Red Cell Distribution Width-SD 42.1 fL; White Blood Count 14.2 K/mm3 (4.8-10.8)
[2024-12-19] MEDS: DOXYCYCLINE HYCLATE 100 MG in 0.9 % SODIUM CHLORIDE 250 ML 166.667 MG IV ×2 (09:40→19:25)
[2024-12-19 10:04] LABS: Alanine Aminotransferase 17 U/L (12-78); Albumin Level 3.2 g/dl (3.5-5.0); Albumin/Globulin Ratio 1.1 (1.1-1.8); Alkaline Phosphatase 82 U/L (38-126); Anion Gap 8.1 mEq/L (5-15); Aspartate Amino Transferase 22 U/L (17-59); Bilirubin,Total 0.5 mg/dl (0.2-1.3); Blood Urea Nitrogen 13 mg/dl (9-20); Calcium 9.3 mg/dl (8.4-10.2); Carbon Dioxide 31 mmol/L (22.0-30.0); Chloride 104 mmol/L (98-107); Creatinine Clearance Estimated 123 mL/min (50-200); Creatinine,Serum 0.60 mg/dl (0.66-1.25); Estimated Glomerular Filt Rate 142 ml/min (>60); GFR (African American) 172 ML/MIN (>60); Globulin 2.8 g/dL (1.3-3.2); Glucose 82 mg/dl (74-100); Magnesium 1.7 mg/dl (1.6-2.3); Potassium 3.1 mmoL/L (3.5-5.1); Sodium 140 mmol/L (136-145); Total Protein,Serum 6.0 g/dl (6.3-8.2)
[2024-12-19] MEDS: TIOTROPIUM 18MCG/PUFF INHALER 1 CAP IH (11:41)
[2024-12-19] MEDS: AZITHROMYCIN 250MG TABLET 500 MG PO (12:05)
[2024-12-19] MEDS: POTASSIUM CHLORIDE 20MEQ TAB 40 MEQ PO ×3 (15:15→22:18)
[2024-12-19] MEDS: MAGNESIUM SULFATE IN WATER 2 GM/50 ML PIGGYBACK IV ×2 (15:23→16:34)
--- NOTE | 2024-12-19 15:23 | PC.NURSE ---
Aox 4, up ad lane, on RA, iv abx, replacement potassium and magnesium given today, regular diet, 20g r ac sl.
[2024-12-19] MEDS: ACETAMINOPHEN 325MG TAB 650 MG PO (17:38)
[2024-12-19] MEDS: NICOTINE 21MG/24HR PATCH 21 MG TD (17:39)
--- NOTE | 2024-12-19 18:12 | P.PN_ITS ---
Subjective *Date: 12/19/24 *Time: 18:12 Interval history: Patient feeling better today, pulmonology recommends final sputum cultures. Continue Zosyn, follow-up sputum and BAL cultures. Exam Data for Last 24 hours Vital signs and Labs for Last 24 Hours: Temp Pulse Resp BP Pulse Ox O2 Del Method O2 Flow Rate 97.5 F L 67 18 117/69 97 Room Air 2 12/19/24 08:00 12/19/24 08:00 12/19/24 08:00 12/19/24 08:00 12/19/24 08:00 12/19/24 13:43 12/18/24 12:39 Laboratory Results - last 24 hr 12/19/24 09:25: WBC 14.2 H, RBC 3.95 L, Hgb 11.3 L, Hct 34.5 L, MCV 87.3, MCH 28.6, MCHC 32.8, RDW 13.1, Plt Count 199, MPV 10.9 H, Neut % (Auto) 86.2 H, Lymph % (Auto) 7.0 L, [place] % (Auto) 6.3, Eos % (Auto) 0.0 L, Baso % (Auto) 0.1, Neut # (Auto) 12.2 H, Lymph # (Auto) 1.0, [place] # (Auto) 0.9, Eos # (Auto) 0.0, Baso # (Auto) 0.0, Sodium 140, Potassium 3.1 L, Chloride 104, Carbon Dioxide 31 H, Anion Gap 8.1, BUN 13 D, Creatinine 0.60 L, Estimated Creat Clear 123, Estimated GFR 142, Est GFR ( Amer) 172, Glucose 82, Calcium 9.3, Magnesium 1.7 D, Total Bilirubin 0.5, AST 22, ALT 17, Alkaline Phosphatase 82, Total Protein 6.0 L, Albumin 3.2 L, Globulin 2.8, Albumin/Globulin Ratio 1.1 I & O for Last 24 hours: Intake & Output 12/16/24 12/17/24 12/18/24 12/19/24 23:59 23:59 23:59 23:59 Intake Total 0 / 2090 950 / 950 Output Total 0 / 0 300 / 300 0 / 0 Balance 0 / 240 1790 / 1790 950 / 950 Weight 57.153 kg 57.47 kg 59.602 kg Microbiology Reports for the Last 24 Hours: Microbiology 12/17/24 14:15 Blood Blood Culture - Preliminary NO GROWTH AFTER 48 HOURS 12/17/24 13:59 Blood Blood Culture - Preliminary NO GROWTH AFTER 48 HOURS 12/17/24 22:37 Sputum - Expectorated Sputum Gram Stain - Final 12/17/24 22:37 Sputum - Expectorated Sputum Sputum Culture - Preliminary Gram Negative Rods 12/18/24 10:34 Transbronchial Biopsy - Left Upper Lobe Gram Stain - Final 12/18/24 10:34 Transbronchial Biopsy - Left Upper Lobe Surgical Biopsy Culture - Preliminary NO GROWTH AFTER 24 HOURS 12/18/24 10:34 Bronchial Washings - Left Upper Lobe Gram Stain - Final Constitutional Constitutional: no acute distress *Routine HEENT Exam Head: Present normocephalic Eye: Present EOMI and PERRL ENT: Present mucous membranes moist *Routine Neck Exam Neck: Present supple; Absent lymphadenopathy *Routine Respiratory Exam Respiratory: Present CTA bilaterally *Routine Cardiovascular Exam Cardiovascular: Present RRR *Routine Abdominal Exam Abdominal: Present soft and normoactive bowel sounds; Absent tenderness *Routine Extremities Exam Extremities: Absent cyanosis, clubbing or edema *Routine Skin Exam Skin: Present warm; Absent rash *Routine Neurological Exam Neurological: Present alert and oriented X3 Assessment and Plan *Assessment and plan (1) Sepsis: Status: Acute Category: Medical Code(s): A41.9 - Sepsis, unspecified organism (2) Cavitary lesion of lung: Status: Acute Category: Medical Code(s): J98.4 - Other disorders of lung (3) Chronic obstructive pulmonary disease: Status: Acute Category: Medical Code(s): J44.9 - Chronic obstructive pulmonary disease, unspecified (4) Opioid use disorder in remission: Status: Acute Category: Medical Code(s): F11.91 - Opioid use, unspecified, in remission Plan Reuben Lang is a 49-year-old male with medical history significant for 20 pack smoking history, COPD on room air, former opioid use disorder on methadone daily, who presents with 2-day onset of left-sided pleuritic chest pain, productive cough, and shortness of breath. He states symptoms have progressively worsened, was evaluated by pulmonology in the clinic today and was advised to come to the ED. Workup in the ED significant for WBC 19 with tachycardia and tachypnea. CTA chest revealed severe left upper lobe pneumonia with multiple suspected cavitary lesions. Case discussed with ED provider and she was made to admit patient for sepsis secondary to community-acquired pneumonia. #Sepsis #Community-acquired pneumonia #Cavitary lesion #Parainfluenza ? Presented with 2-day onset of left-sided pleuritic chest pain, productive, shortness of breath. Initial WBC 19, with tachycardia and tachypnea. Respiratory panel positive for parainfluenza. ? CTA chest revealed interval development of severe left upper lobe pneumonia with consolidation and numerous air-fluid levels within bullous lesions. Mild progression of right upper lobe cavitary lesions, which may be secondary to atypical or fungal disease, less likely neoplasm. ? Pulmonology was consulted by the ED, s/p thoracentesis with BAL cultures. Follow-up on cultures. - WBC slightly bumped at 14.2 today, the patient feeling better today. ? Discussed with pulmonology, recommend final sputum cultures before discharge due to severity of pneumonia. ? Continue Zosyn, doxycycline day 3. Sputum cultures growing gram-negative rods. ? Follow-up morning CBC. #COPD ? Currently on room air. Stable. Continue home Advair, Spiriva. #Former opioid use disorder ? Continue home methadone once reconciled. Full code DVT prophylaxis: Lovenox 40 mg
[2024-12-19] MEDS: ATORVASTATIN 40MG TABLET 40 MG PO (20:57)
[2024-12-19] MEDS: KETOROLAC 30MG/ML VIAL 30 MG IV (23:59)
[2024-12-20] MEDS: PIPERCILLIN/TAZO 3.375 GM in 0.9 % SODIUM CHLORIDE 50 ML IV ×2 (01:56→07:39)
--- NOTE | 2024-12-20 02:34 | PC.NURSE ---
Pt AOx4. Received IVABx as ordered. C/o some pain in his side earlier, received toradol prn and pt reported relief. Currently resting in bed with eyes open. Respirations even and unlabored. Bed is low, locked, and call light is in reach.
[2024-12-20 04:00] VITALS: BP 109/69; PULSE 76; RESP 17; TEMP 37.5; O2SAT 93; BMI 18.6
[2024-12-20] MEDS: ACETAMINOPHEN 325MG TAB 650 MG PO (06:03)
[2024-12-20 08:00] VITALS: BP 97/59; PULSE 73; RESP 16; TEMP 36.8; O2SAT 96
[2024-12-20] MEDS: DOXYCYCLINE HYCLATE 100 MG in 0.9 % SODIUM CHLORIDE 250 ML 166.667 MG IV (08:04)
--- NOTE | 2024-12-20 08:07 | XR_ITS ---
PROCEDURE INFORMATION: Exam: XR Chest Exam date and time: 12/20/2024 8:21 AM Age: 49 years old Clinical indication: Cough and shortness of breath and other: Pnm TECHNIQUE: Imaging protocol: Radiologic exam of the chest. Views: 1 view. COMPARISON: CR XR CHEST PORTABLE 12/18/2024 11:02 AM FINDINGS: Lungs: There is increasing left upper lobe infiltrate identified. COPD changes are again identified. Pleural spaces: Unremarkable. No pleural effusion. No pneumothorax. Heart/Mediastinum: Unremarkable. No cardiomegaly. Bones/joints: Unremarkable. IMPRESSION: COPD with increasing left upper lobe infiltrate.
--- NOTE | 2024-12-20 08:26 | P.DS_ITS ---
General Admission date:: 12/17/24 HPI HPI HPI: Reuben Lang is a 49-year-old male with medical history significant for 20 pack smoking history, COPD on room air, former opioid use disorder on methadone daily, who presents with 2-day onset of left-sided pleuritic chest pain, productive cough, and shortness of breath. He states symptoms have progressively worsened, was evaluated by pulmonology in the clinic today and was advised to come to the ED. Workup in the ED significant for WBC 19 with tachycardia and tachypnea. CTA chest revealed severe left upper lobe pneumonia with multiple suspected cavitary lesions. Case discussed with ED provider and she was made to admit patient for sepsis secondary to community-acquired pneumonia. Hospital Course Hospital Course Hospital Course: Reuben Lang is a 49-year-old male with medical history significant for 20 pack smoking history, COPD on room air, former opioid use disorder on methadone daily, who presents with 2-day onset of left-sided pleuritic chest pain, productive cough, and shortness of breath. He states symptoms have progressively worsened, was evaluated by pulmonology in the clinic today and was advised to come to the ED. Workup in the ED significant for WBC 19 with tachycardia and tachypnea. CTA chest revealed severe left upper lobe pneumonia with multiple suspected cavitary lesions. Case discussed with ED provider and she was made to admit patient for sepsis secondary to community-acquired pneumonia. #Sepsis #Community-acquired pneumonia #Cavitary lesion #Parainfluenza ? Presented with 2-day onset of left-sided pleuritic chest pain, productive, shortness of breath. Initial WBC 19, with tachycardia and tachypnea. Respir atory panel positive for parainfluenza. ? CTA chest revealed interval development of severe left upper lobe pneumonia with consolidation and numerous air-fluid levels within bullous lesions. Mild progression of right upper lobe cavitary lesions, which may be secondary to atypical or fungal disease, less likely neoplasm. ? Pulmonology was consulted by the ED, s/p bronchoscopy 12/18/2024 with BAL cul tures. ? Sputum cultures grew Pseudomonas aeruginosa sensitive to levofloxacin. ? Clinically improved with IV Zosyn, patient feeling much better today. Less shortness of breath, cough. ? Discussed with pulmonology, recommend levofloxacin for total of 14 days follow-up in clinic. ? Discharged with levofloxacin 750 mg for 11 more days. #COPD ? Currently on room air. Stable. Continue home Advair, Spiriva. #Former opioid use disorder ? Continue home methadone 80 mg daily. #History of NSTEMI ? Continue home aspirin 81 mg, atorvastatin 40 mg, metoprolol succinate 25 mg. Exam Data for Last 24 hours Vital signs and Labs for Last 24 Hours: Temp Pulse Resp BP Pulse Ox O2 Del Method O2 Flow Rate 99.5 F 76 17 109/69 L 93 L Room Air 2 12/20/24 04:00 12/20/24 04:00 12/20/24 04:00 12/20/24 04:00 12/20/24 04:00 12/20/24 07:51 12/18/24 12:39 Laboratory Results - last 24 hr 12/19/24 09:25: WBC 14.2 H, RBC 3.95 L, Hgb 11.3 L, Hct 34.5 L, MCV 87.3, MCH 28.6, MCHC 32.8, RDW 13.1, Plt Count 199, MPV 10.9 H, Neut % (Auto) 86.2 H, Lymph % (Auto) 7.0 L, [place] % (Auto) 6.3, Eos % (Auto) 0.0 L, Baso % (Auto) 0.1, Neut # (Auto) 12.2 H, Lymph # (Auto) 1.0, [place] # (Auto) 0.9, Eos # (Auto) 0.0, Baso # (Auto) 0.0, Sodium 140, Potassium 3.1 L, Chloride 104, Carbon Dioxide 31 H, Anion Gap 8.1, BUN 13 D, Creatinine 0.60 L, Estimated Creat Clear 123, Estimated GFR 142, Est GFR ( Amer) 172, Glucose 82, Calcium 9.3, Magnesium 1.7 D, Total Bilirubin 0.5, AST 22, ALT 17, Alkaline Phosphatase 82, Total Protein 6.0 L, Albumin 3.2 L, Globulin 2.8, Albumin/Globulin Ratio 1.1 I & O for Last 24 hours: Intake & Output 12/17/24 12/18/24 12/19/24 12/20/24 23:59 23:59 23:59 23:59 Intake Total 2089 / 0 950 / 1300 400 / 400 Output Total 0 / 0 300 / 300 0 / 0 0 / 0 Balance 0 / 240 1790 / 1790 950 / 1300 400 / 400 Weight 57.153 kg 57.47 kg 59.602 kg 58.967 kg Microbiology Reports for the Last 24 Hours: Microbiology 12/17/24 22:37 Sputum - Expectorated Sputum Gram Stain - Final 12/17/24 22:37 Sputum - Expectorated Sputum Sputum Culture - Final Pseudomonas aeruginosa 12/18/24 10:34 Transbronchial Biopsy - Left Upper Lobe Gram Stain - Final 12/18/24 10:34 Transbronchial Biopsy - Left Upper Lobe Surgical Biopsy Culture - Preliminary NO GROWTH AFTER 48 HOURS 12/17/24 14:15 Blood Blood Culture - Preliminary NO GROWTH AFTER 48 HOURS 12/17/24 13:59 Blood Blood Culture - Preliminary NO GROWTH AFTER 48 HOURS Constitutional Constitutional: no acute distress and cachectic *Routine HEENT Exam Head: Present normocephalic Eye: Present EOMI and PERRL ENT: Present mucous membranes moist *Routine Neck Exam Neck: Present supple; Absent lymphadenopathy *Routine Respiratory Exam Respiratory: Present CTA bilaterally *Routine Cardiovascular Exam Cardiovascular: Present RRR *Routine Abdominal Exam Abdominal: Present soft and normoactive bowel sounds; Absent tenderness *Routine Extremities Exam Extremities: Absent cyanosis, clubbing or edema *Routine Skin Exam Skin: Present warm; Absent rash *Routine Neurological Exam Neurological: Present alert and oriented X3 Results Data Completed and Pending Labs on day of discharge: Labs from last 24 hours 12/19/24 09:25 WBC 14.2 H RBC 3.95 L Hgb 11.3 L Hct 34.5 L MCV 87.3 MCH 28.6 MCHC 32.8 RDW 13.1 Plt Count 199 MPV 10.9 H Neut % (Auto) 86.2 H Lymph % (Auto) 7.0 L [place] % (Auto) 6.3 Eos % (Auto) 0.0 L Baso % (Auto) 0.1 Neut # (Auto) 12.2 H Lymph # (Auto) 1.0 [place] # (Auto) 0.9 Eos # (Auto) 0.0 Baso # (Auto) 0.0 Sodium 140 Potassium 3.1 L Chloride 104 Carbon Dioxide 31 H Anion Gap 8.1 BUN 13 D Creatinine 0.60 L Estimated Creat Clear 123 Estimated GFR 142 Est GFR ( Amer) 172 Glucose 82 Calcium 9.3 Magnesium 1.7 D Total Bilirubin 0.5 AST 22 ALT 17 Alkaline Phosphatase 82 Total Protein 6.0 L Albumin 3.2 L Globulin 2.8 Albumin/Globulin Ratio 1.1 Preliminary micro results at discharge 12/18/24 10:34 Surgical Biopsy Culture - Preliminary Transbronchial Biopsy - Left Upper Lobe NO GROWTH AFTER 48 HOURS 12/17/24 14:15 Blood Culture - Preliminary Blood NO GROWTH AFTER 48 HOURS 12/17/24 13:59 Blood Culture - Preliminary Blood NO GROWTH AFTER 48 HOURS DS: Diagnosis Discharge Diagnosis (1) Sepsis: Status: Acute Code(s): A41.9 - Sepsis, unspecified organism (2) Cavitary lesion of lung: Status: Acute Code(s): J98.4 - Other disorders of lung (3) Chronic obstructive pulmonary disease: Status: Acute Code(s): J44.9 - Chronic obstructive pulmonary disease, unspecified (4) Opioid use disorder in remission: Status: Acute Code(s): F11.91 - Opioid use, unspecified, in remission Meds Home Medications and Allergies Home Medications ?Medication ?Instructions ?Recorded ?Confirmed ?Type albuterol sulfate 90 mcg/actuation 1 puff inhalation A S DIRECTED 07/08/24 12/17/24 History aerosol inhaler methadone 10 mg tablet 80 mg PO DAILY 07/08/2412/01 History aspirin 81 mg chewable tablet 81 mg PO DAILY 30 days # 30 tabs 11/16/24 12/17/24 Rx atorvastatin 40 mg tablet 40 mg PO HS 30 days #30 tabs 11/16/24 12/17/24 Rx fluticasone propionate 230 1 puff inhalation BIDRT 12/18/24 History mcg-salmeterol 21 mcg/actuation HFA inhaler (Advair HFA) metoprolol succinate 25 mg 25 mg PO DAILY 30 days #30 tabs 11/16/24 12/17/24 Rx tablet,extended release 24 hr tiotropium bromide 2.5 1 inh inhalation DAILY 11/1612/17/24 History mcg/actuation mist for inhalation (Spiriva Respimat) levofloxacin 750 mg tablet 750 mg PO DAILY 11 days #11 tabs 12/20/24 Rx New Prescriptions to Start Prescriptions: levofloxacin Bayron Bledsoe Allergies Allergy/AdvReac Type Severity Reaction Status Date / Time baclofen Allergy Severe Anaphylaxis Verified 12/19/24 10:16 carisoprodol Allergy Severe Anaphylaxis Verified 12/19/24 10:16 cyclobenzaprine Allergy Severe Anaphylaxis Verified 12/19/24 10:16 dantrolene Allergy Severe Anaphylaxis Verified 12/19/24 10:16 metaxalone Allergy Severe Anaphylaxis Verified 12/19/24 10:16 methocarbamol Allergy Severe Anaphylaxis Verified 12/19/24 10:16 tizanidine Allergy Severe Anaphylaxis Verified 12/19/24 10:16 Muscle Relaxers Allergy Severe Anaphylaxis Uncoded 12/18/24 10:15 Discharge Plan Disposition Patient Disposition: Home, Self-Care Condition: Fair Follow up Plan Follow up with: Re Orr MD [Physician, Pulmonology] - 1 week Nahed Mendenhall APRN [Primary Care Provider, Family Practice] - Enter time for follow up Prescriptions/Medication Reconciliation: New levofloxacin 750 mg tablet 750 mg PO DAILY 11 Days Qty: 11 0RF Continued methadone 10 mg Tablet 80 mg PO DAILY Rx Instructions: PATIENT PRESCRIBED 80 MG DAILY, LAST FILLED 11/23/24 FOR 30 DAY SUPPLY PER [facility] [phone] albuterol sulfate 90 mcg/actuation HFA aerosol inhaler 1 puff inhalation DIRECTED fluticasone propion-salmeterol [Advair HFA] 230-21 mcg/actuation HFA aerosol inhaler 1 puff INHALATION BIDRT Spiriva Respimat 2.5 mcg/actuation mist 1 inh INHALATION DAILY atorvastatin 40 mg Tablet 40 mg PO HS 30 Days Qty: 30 3RF aspirin 81 mg Tablet,Chewable 81 mg PO DAILY 30 Days Qty: 30 3RF metoprolol succinate 25 mg Tablet Extended Release 24 Hr 25 mg PO DAILY 30 Days Qty: 30 3RF Problem Reconciliation Problems Reviewed?: Yes Patient Discharge Instructions Patient Instructions: Pneumonia--Adult, Sepsis Print Language: [place] Providers Primary Care Provider: Nahed Mendenhall Admit Provider: Bayron Bledsoe Attending Provider: Bayron Bledsoe
[2024-12-20] MEDS: METOPROLOL SUCCINATE XL 25MG TABLET 25 MG PO (09:31)
[2024-12-20] MEDS: ASPIRIN 81MG CHEWABLE TABLET 81 MG PO (09:31)
[2024-12-20 10:12] LABS: Hematocrit 37.1 % (42.0-52.0); Hemoglobin 12.1 g/dL (14.1-18.0); Immature Granulocytes % 0.5 %; Mean Corpuscular HGB Conc 32.6 g/dL (31.8-35.4); Mean Corpuscular Hemoglobin 28.6 pg (27.0-31.2); Mean Corpuscular Volume 87.7 fl (80-94); Nucleated Red Blood Cells % 0 %; Platelet Count 212 K/mm3 (142-424); Red Blood Count 4.23 M/mm3 (4.60-6.20); Red Cell Distribution Width-SD 42.7 fL; White Blood Count 14.7 K/mm3 (4.8-10.8)
[2024-12-20 10:22] LABS: Alanine Aminotransferase 23 U/L (12-78); Albumin Level 3.3 g/dl (3.5-5.0); Albumin/Globulin Ratio 1.2 (1.1-1.8); Alkaline Phosphatase 106 U/L (38-126); Anion Gap 8.6 mEq/L (5-15); Aspartate Amino Transferase 27 U/L (17-59); Bilirubin,Total 1.2 mg/dl (0.2-1.3); Blood Urea Nitrogen 11 mg/dl (9-20); Calcium 8.9 mg/dl (8.4-10.2); Carbon Dioxide 28 mmol/L (22.0-30.0); Chloride 105 mmol/L (98-107); Creatinine Clearance Estimated 121 mL/min (50-200); Creatinine,Serum 0.60 mg/dl (0.66-1.25); Estimated Glomerular Filt Rate 142 ml/min (>60); GFR (African American) 172 ML/MIN (>60); Globulin 2.8 g/dL (1.3-3.2); Glucose 101 mg/dl (74-100); Magnesium 1.9 mg/dl (1.6-2.3); Potassium 3.6 mmoL/L (3.5-5.1); Sodium 138 mmol/L (136-145); Total Protein,Serum 6.1 g/dl (6.3-8.2)
[2024-12-20] MEDS: AZITHROMYCIN 250MG TABLET 500 MG PO (10:30)
--- NOTE | 2024-12-21 08:30 | EXP.ANES.II ---
[facility] Anesthesia Record Part II Anesthesia Record Part II Discharge Time: 11:32 Destination: Surgical Day Care (OP Surgery) PACU nurse assessment reviewed?: Yes Patient Condition:: Good Anesthesia Complications:: None Swallowing reflex intact?: Yes Airway Patency: Patent Cyanosis?: No Blood Pressure: 112/71 SaO2: 99 Respiratory Rate: 18 Pulse Rate: 85 Temperature: 97 F Mental Status: Alert & Oriented Pain level:: 5 Nausea and/or vomitting:: None Intake, IV Amount: 0 Hydration: Adequate
[2024-12-21 08:31] VITALS: BP 112/71; PULSE 85; RESP 18; TEMP 36.1; O2SAT 99
--- NOTE | 2024-12-21 10:53 | SW/DCPLANNER ---
Left patient a voicemail
--- NOTE | 2024-12-22 11:25 | SW/DCPLANNER ---
Spoke with patient on the phone. Patient stated that he is doing good. Patient stated that he is going to call and schedule his follow up appointments. Patient stated that he was able to get his medicine picked up. Patient stated that he has no concerns or questions at this time. Cathie Chaparro
== END 2024-12-20 11:15 | disposition home or self-care (01) ==
LOC: ER 15:14 → 2ND 16:41
PROVIDERS: Internal Medicine Pulmonary Disease; Nurse Practitioner; Nurse Practitioner Acute Care; Admitting Provider Student in an Organized Health Care Education/Training Program; Emergency Provider Emergency Medicine; PCP Nurse Practitioner Family; Visit Provider Student in an Organized Health Care Education/Training Program
DX: A41.9 Sepsis, unspecified organism (principal); J12.2 Parainfluenza virus pneumonia; J44.9 Chronic obstructive pulmonary disease, unspecified; J98.4 Other disorders of lung; F11.91 Opioid use, unspecified, in remission; I25.2 Old myocardial infarction; F17.210 Nicotine dependence, cigarettes, uncomplicated; Z88.8 Allergy status to other drugs, medicaments and biological substances; Z79.51 Long term (current) use of inhaled steroids; Z79.82 Long term (current) use of aspirin; Z79.899 Other long term (current) drug therapy; Z88.6 Allergy status to analgesic agent
CPT/HCPCS: 31624; 31628; 0223U; 36415; 71045; 71275; 76000; 80053; 81001; 83605; 83690; 83735; 84484; 85007; 85025; 85027; 86140; 86606; 86612; 87040; 87070; 87077; 87101; 87116; 87186; 87205; 87633; 87641; 88112; 88305; 88312; 89051; 93005; 94640; 96372; 96374; 96375; 96376; 99285; G0378; J0131; J0456; J0696; J1100; J1650; J1885; J2003; J2250; J2270; J2371; J2405; J2543; J2704; J2919; J3010; J3475; J7030; J7050; Q9967

== ENCOUNTER 2025-01-18 13:36 | Outpatient (CLI) | payer MEDICARE, SELFPAY ==
--- OUTSIDE RECORDS SUMMARY | 2025-01-18 13:39 | XMS_ITS | Encounter Summary ---
Author Organization [facility] Address [address] [place] [address] Care Team Providers Care Laborer Starch Factory Name Role Phone Pcp, No Primary Care Provider Ron e Encounter Details Date Type Department Care Team (Late st Contact Info) Description 01/06/2025 [facility] [address] [place] [address] [place] [address] Social History Tobacco Use Types Packs/Day Years [...] as of this encounter Miscellaneous Notes * Telephone Encounter - Dorys Mares - 01/06/2025 2:34 PM EDT Patient called returning a call Call was regarding scheduling an appointment He told me he has an appointment to see a offset machine operator in [place] after being in the hospital - he didn't tell me which hospital he was in He said he would call after his appointment and let us know if he is going to stay with them or make an appointment with us documented in this encounter Plan of Treatment Not on file documented as of this encounter Visit Diagnoses [...] documented as of this encounter Care Teams Laborer Starch Factory Relationship Specialty Start Date End Date Pcp, [place] [address] PCP - General Family Medicine 06/21/22 documented as of this encounter
--- OUTSIDE RECORDS SUMMARY | 2025-01-18 13:39 | XMS_ITS | Clinical Summary ---
Author Organization Healthcare Address [address] [place] [address] Care Team Providers Care Electro Mechanical Assembler Name Role Phone Pcp, No Primary Care [...] spacer 12 g 11 5 Active Tiotropium [place] Monohydrate (Spiriva Respimat) 2.5 MCG/ACT inhalerIndicatio ns:Asthma-COPD overlap syndrome (CMS/HCC) Inhale 2 puffs daily. 4 g 11 5 Active Active Problems No known active problems Encounters Date Type Department Care Team Description 01/13/2025 Telephone [facility] [address] [place] [address] Vanna Hoover CPhT 01/06/2025 Telephone [place] [facility] [address], [address] [place] [address] Dorys Mares from Last 3 Months Immunizations Immunization Administration [...] 2018 [facility]-Zoster Vaccines (1 of 2) 2023 [id number] Vaccine ( - 2023- season) 2024 [facility]-Influenza Vaccine (#1) 02/01/202502/28, 06/13/2016 [...] this topic Insurance [employer] MEDICARE Care Teams Electro Mechanical Assembler Relationship Specialty Start Date [place] [address] PCP - General Family Medicine 06/21/22
--- OUTSIDE RECORDS SUMMARY | 2025-01-18 13:39 | XMS_ITS | Encounter Summary ---
Author Organization [facility] Address [address] [place] [address] Care Team Providers Care Driver Guard Name Role Phone Pcp, No Primary Care Provider Unavailabl e Reason for Referral * Consultation (Routine) - Closed Specialty Diagnoses / Procedures Referred By Contac t Referred To Contact Pulmonary Disease / Pulmonology Diagnoses Chronic obstructive pulmonary disease, unspecified COPD type (CMS/HCC) Gato Rutledge MD [address] [address] Phone: tel: fax: Referral ID Status Reason Start Date Expiration Date V isits Requested Visits Authorized [id number] Closed Specialty Services Required 05/14/2024 11/13/2025 1 1 Encounter Details Date Type Department Care Team (Late st Contact Info) Description 05/14/2024 Community [facility] [address] [place] [address] Gato Rutledge MD [address] [place] [phone] Chronic obstructive pulmonary disease, unspecified COPD type [...] Primary documented in this encounter Care Teams Driver Guard Relationship Specialty Start Date End Date Pcp, [place] [address] PCP - General Family Medicine 06/21/22 documented as of this encounter
--- OUTSIDE RECORDS SUMMARY | 2025-01-18 13:39 | XMS_ITS | Encounter Summary ---
Author Organization Healthcare Address [address] [place] [address] Care Team Providers Care Esthetic Dermatologist Name Role Phone Pcp, No Primary Care Provider Unavailabl e Encounter Details Date Type Department Care Team (Late st Contact Info) Description 01/13/2025 Telephone [facility] [address] [place] [address] Vanna Hoover, machine fur cleaner Social History Tobacco Use Types Packs/Day Years [...] as of this encounter Plan of Treatment Not on [...] documented as of this encounter Care Teams Esthetic Dermatologist Relationship Specialty Start Date End Date Pcp, No [address] [place] [address] PCP - General Family Medicine 06/21/22 documented as of this encounter
--- OUTSIDE RECORDS SUMMARY | 2025-01-18 13:39 | XMS_ITS | Clinical Summary ---
Author Organization [facility] Address [address] [place] [address] Phone Care Team Providers Care Stretcher Drier Operator Name Role Phone Unavailable Primary Care Provider [...] Positive for Methadone NO CONTROLLED DRUGS FROM [facility] Problem Noted Date Diagnosed Date Mild methadone [...] Date Smoking Tobacco: Every Day Cigarettes 1 28.6 Started: 06/13/1996 Smokeless Tobacco: Never Tobacco Cessation:Ready [...] Free Lifestyle No Fariha Lang RN Insurance [employer] [facility] [address] Advance Directives For more information, please contact: [phone] * Full Code (Latest Code Status on File) Date Activated Date Inactivated Comments 06/14/2016 3:44 PM 06/14/2016 9:19 PM
--- NOTE | 2025-01-18 13:41 | XR_ITS ---
FINAL REPORT TECHNIQUE: Chest PA & Lateral CLINICAL HISTORY: sob COMPARISON: None FINDINGS: 2 views of the chest were performed. Hyperinflation is present. The heart size is normal. The mediastinum is within normal limits. There are coarse increased markings noted in the lung holguin bilaterally, that may represent fibrosis or scar. There are no pleural effusions. There is no pneumothorax. The bony thorax appears intact. IMPRESSION: Hyperinflation, with coarse increased markings noted in the lung holguin bilaterally, fibrosis versus scar. Reviewed, Interpreted and Dictated by Kalyan Kiser MD Transcribed by Pennie Alvarado Authenticated and [facility]
== END 2025-01-18 23:59 | disposition home or self-care (01) ==
PROVIDERS: PCP Nurse Practitioner Family; Visit Provider Internal Medicine Pulmonary Disease
DX: A31.0 Pulmonary mycobacterial infection (principal); R91.8 Other nonspecific abnormal finding of lung field; R06.02 Shortness of breath
CPT/HCPCS: 71046; 87101; 87116; 87186

== ENCOUNTER 2025-02-16 14:42 | Outpatient (CLI) | payer MEDICARE, SELFPAY ==
--- OUTSIDE RECORDS SUMMARY | 2025-02-16 14:44 | XMS_ITS | Encounter Summary ---
Author Organization [facility] Address [address] [place] [address] Care Team Providers Care Music Historian Name Role Phone Pcp, No Primary Care Provider Ron e Encounter Details Date Type Department Care Team (Late st Contact Info) Description 01/06/2025 Telephone [place] [facility] [address] [place] [address] Dory[place] [address] Social History Tobacco Use Types Packs/Day Years [...] he has an appointment to see a registration scheduling specialist in [place] after being in the hospital - he [...] documented as of this encounter Care Teams Music Historian Relationship Specialty Start Date End Date Pcp, [place] [address] PCP - General Family Medicine 06/21/22 documented as of this encounter
--- OUTSIDE RECORDS SUMMARY | 2025-02-16 14:44 | XMS_ITS | Clinical Summary ---
Author Organization [facility] Address [address] [place] [address] Phone Care Team Providers Care Copyholder Name Role Phone Unavailable Primary Care Provider [...] Positive for Methadone NO CONTROLLED DRUGS FROM [facility] Problem Noted Date Diagnosed Date Mild [...] Date Smoking Tobacco: Every Day Cigarettes 1 28.7 Started: 06/13/1996 Smokeless Tobacco: Never Tobacco Cessation:Ready [...] 2) 2023 COVID-19 Vaccine (2023-2 5 season) 2025 Influenza Vaccine (#1) 2025 7 (Declined), 06/13/2016, [...] Free Lifestyle No Fariha Lang RN Insurance [employer] [facility] [address] Advance Directives For more information, please contact: [phone] * Full Code (Latest Code Status on File) Date Activated Date Inactivated Comments 06/14/2016 3:44 PM 06/14/2016 9:19 PM
--- OUTSIDE RECORDS SUMMARY | 2025-02-16 14:44 | XMS_ITS | Encounter Summary ---
Author Organization [facility] Address [address] [place] [address] Care Team Providers Care Colleter Name Role Phone Pcp, No Primary Care Provider Unavailabl e Reason for Referral * Consultation (Routine) - Closed Specialty Diagnoses / Procedures Referred By Contac t Referred To Contact Pulmonary Disease / Pulmonology Diagnoses Chronic obstructive pulmonary disease, unspecified COPD type (CMS/HCC) Gato Rutledge MD [address] [address] Phone: tel: fax: Referral ID Status Reason Start Date Expiration Date V isits Requested Visits Authorized [id number] Closed Specialty Services Required 05/14/2024 11/13/2025 1 1 Encounter Details Date Type Department Care Team (Late st Contact Info) Description 05/14/2024 Community [facility] Community Practice [address] [place] [address] Gato Rutledge MD [address] [place] [phone] Chronic obstructive pulmonary disease, unspecified COPD type [...] Primary documented in this encounter Care Teams Colleter Relationship Specialty Start Date End Date Pcp, [place] [address] PCP - General Family Medicine 06/21/22 documented as of this encounter
--- OUTSIDE RECORDS SUMMARY | 2025-02-16 14:44 | XMS_ITS | Clinical Summary ---
Author Organization Healthcare Address [address] [place] [address] Care Team Providers Care Senior Php Web Developer Name Role Phone Pcp, No Primary Care [...] spacer 12 g 11 5 Active Tiotropium [place] Monohydrate (Spiriva Respimat) 2.5 MCG/ACT inhalerIndicatio ns:Asthma-COPD overlap syndrome (CMS/HCC) Inhale 2 puffs daily. 4 g 11 5 Active Active Problems No known active problems Encounters Date Type Department Care Team Description 01/13/2025 Telephone [facility] [address] [place] [address] Vanna Hoover CPhT 01/06/2025 Telephone [place] [facility] [address] [place] [address] Dorys Mares from Last 3 [...] 50 + Years (2 of 2 - PPSV23, PCV20, or PCV21) 08/09/2016 06/14/2016 CT Colonography 2018 Colonoscopy 2018 FIT-DNA 2018 FIT 2018 FOBT 2018 Sigmoidoscopy 2018 [facility]-Colorectal Cancer Screening 2018 [facility]-Zoster Vaccines (1 of 2) 2023 [id number] Vaccine (2023- season) 2025 [facility]-Influenza Vaccine (#1) 02/01/202502/28, 06/13/2016 [facility]-Depression Screening [...] this topic Insurance [employer] MED[employer]ARE Care Teams Senior Php Web Developer Relationship Specialty Start Date End Date Mark, [place] [address] PCP - General Family Medicine 06/21/22
--- OUTSIDE RECORDS SUMMARY | 2025-02-16 14:44 | XMS_ITS | Encounter Summary ---
Author Organization Healthcare Address [address] [place] [address] Care Team Providers Care Float Operator Name Role Phone Pcp, No Primary Care Provider Unavailabl e Encounter Details Date Type Department Care Team (Late st Contact Info) Description 01/13/2025 Telephone [facility] [address] [place] [address] Vanna Hoover, bag tester Social History Tobacco Use Types Packs/Day Years [...] documented as of this encounter Care Teams Float Operator Relationship Specialty Start Date End Date Pcp, No [address] [place] [address] PCP - General Family Medicine 06/21/22 documented as of this encounter
[2025-02-16] MEDS: ALBUTEROL 0.083% 2.5 MG/3 ML NEB IH (15:22)
--- NOTE | 2025-02-16 15:23 | PC.NURSE ---
PFT and 6 Minute Walk test completed without incident. Albuterol 0.083% given via HHN, per written protocol, Pt tolerated tx well.
== END 2025-02-16 23:59 | disposition home or self-care (01) ==
LOC: RT 14:42
PROVIDERS: PCP Nurse Practitioner Family; Visit Provider Internal Medicine Pulmonary Disease
DX: J44.9 Chronic obstructive pulmonary disease, unspecified (principal); R94.2 Abnormal results of pulmonary function studies
CPT/HCPCS: 94060; 94618; 94726; 94729

== ENCOUNTER 2025-03-29 14:43 | Outpatient (CLI) | payer MEDICARE, SELFPAY ==
[2025-03-29 15:03] LABS: Hematocrit 46.3 % (42.0-52.0); Hemoglobin 15.4 g/dL (14.1-18.0); Immature Granulocytes % 0.3 %; Mean Corpuscular HGB Conc 33.3 g/dL (31.8-35.4); Mean Corpuscular Hemoglobin 29.2 pg (27.0-31.2); Mean Corpuscular Volume 87.7 fl (80-94); Nucleated Red Blood Cells % 0 %; Platelet Count 194 K/mm3 (142-424); Red Blood Count 5.28 M/mm3 (4.60-6.20); Red Cell Distribution Width-SD 44.5 fL; White Blood Count 7.3 K/mm3 (4.8-10.8)
--- OUTSIDE RECORDS SUMMARY | 2025-03-29 15:39 | XMS_ITS | Data Portability ---
Author Organization [place] - [place] [facility] [place] [facility] MELONIE Resendez ADMIN Address [address] [place] [address] Care Team Providers Care Wrecker Operator Name Role Phone JODIGATO Primary Care Provider [phone] Assessment No assessment recorded. Plan of Treatment Reminders Order Date Submit Date Provider Last Modified By Organization Details Last Modified Time Details Appointments None recorded. Lab None recorded. Referral pulmonologi st referral - 48 yo new patient to me on disability due to lung disease. Use to see Dr. Quintero. Says Dr. Quintero told him his disease was so bad he would probably need a lung transplant. Unfortunate ly he continues to smoke. Currently on Trelegy and albuterol mdi. Please evaluate and treat 2023 [facility], [address], [address] [place] [address] [address], [place], [address], 5 15:01:33 Procedures None recorded. Surgeries None recorded. Imaging None recorded. Medication Orders Trelegy Ellipta 100 mcg-62.5 mcg-25 mcg powder for inhalation 2023 [facility], [address] [place] [address], [id number], 4 14:48:46 albuterol sulfate HFA 90 mcg/actuati on aerosol inhaler 2023 [facility], [address] [place] [address], [id number], 4 14:48:49 Ventolin HFA 90 mcg/actuati on aerosol inhaler 2021 022 [facility], [address] [address] [place], [id number], 2 13:31:31 Patient TargetsNo targets recorded. 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 Use to see Dr. Quintero. Says Dr. Quintero told him his disease was so bad he would probably need a lung transplant. Unfortunately he continues to smoke. Currently on Trelegy and albuterol mdi. 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 Procedures Surgical History Date Name Laterality Status Provider Name and Address Organization Details Recorded Time 06/21/19 23 closed reduction of fracture of distal radius and percutaneous fixation using Ammon wire completed Corin Lomeli HARMONY [facility] & [place] 04/29/2024 13:34:14 02/02/20 19 open reduction of fracture with internal fixation [facility] [place] 04/29/2024 13:30:33 01/02/20 19 procedure on foot completed Anat Cramer [facility] & [place] 04/12/2022 08:19:17 Imaging Results None recorded. Procedure Notes None recorded. Medical Equipment None Reported. Medications Name Sig Start Date Stop Date Status Note LastModified by Organization Details LastModified Time ipratropium 0.5 mg-albutero l 3 mg (2.5 mg base)/3 mL nebulizatio n soln 05/13 completed Not Available Not Available Not Available albuterol sulfate 2.5 mg/3 mL (0.083 %) solution for nebulizatio n 05/13 completed Not Available Not Available Not Available permethrin 5 % topical cream Apply 1 {applicat ion} by topical route. 05/13 completed Not Available Not Available Not Available ibuprofen 600 mg tablet TAKE 1 TABLET BY MOUTH EVERY 6 HOURS NEEDED FOR MODERATE PAIN 05/13 completed Not Available Not Available Not Available albuterol sulfate HFA 90 mcg/actuati on aerosol inhaler INHALE 2 PUFFS BY MOUTH EVERY 4 HOURS NEEDED active Not Available Not Available No t Available methadone 5 mg tablet Take 1 {tablet} by oral route. 05/13 completed Not Available Not Available Not Available methadone active Not Available Not Zoey ilable Not Available ipratropium 0.5 mg-albutero l 2.5 mg/2.5 mL solution for nebulizatio n Inhale by inhalatio n route. 05/13 completed Not Available Not Available Not Available Incruse Ellipta 62.5 mcg/actuati on powder for inhalation 05/13 completed Not Available Not Available Not Available Trelegy Ellipta 100 mcg-62.5 mcg-25 mcg powder for inhalation Inhale 1 puff every day by inhalatio n route as directed, for COPD. active Not Available Not Available No t Available albuterol sulf 90 mcg/actuati on breath activated powder inhaler,sen sor Inhale 2 puffs every 4 hours by inhalatio n route. 05/13 completed Not Available Not Available Not Available Breztri Aerosphere 160 mcg-9mcg-4. 8mcg/actuat ion HFA aerosol inhaler INHALE 2 PUFFS BY MOUTH 2 TIMES A DAY 05/13 completed Not Available Not Available Not Available Vitals Date Recorded Body height Body mass index (BMI) Body weight Body temperature Heart rate Oxygen saturation Oxygen saturation in Arterial blood by Pulse oximetry Systolic And Diastolic Provider Name and Address Organization Details Last Updated DateTime 3 177.8 cm 23.2 kg/m2 07574.9 6 g 98.2 [degF] 85 /min 98 % 98 % 137/86 mm[Hg] Natalee mo [facility] & [place] 3 13:17:54 Date Recorded Body weight Body mass index (BMI) Body height Body temperature Oxygen saturation Oxygen saturation in Arterial blood by Pulse oximetry Heart rate Systolic And Diastolic Provider Name and Address Organization Details Last Updated DateTime 2 82960.0 4 g 21.8 kg/m2 177.8 cm 97.8 [degF] 98 % 98 % 79 /min 121/79 mm[Hg] Anat Cramer [facility] & [place] 2 12:57:46 Date Recorded Body height Body mass index (BMI) Body weight Body temperature Oxygen saturation Oxygen saturation in Arterial blood by Pulse oximetry Heart rate Systolic And Diastolic Provider Name and Address Organization Details Last Updated DateTime 4 177.8 cm 21.3 kg/m2 16771.8 3 g 98.2 [degF] 95 % 95 % 80 /min 132/80 mm[Hg] Khushi Anguiano [facility] & [place] 13:59:33 Social History Question Answer Notes LastModified by Organizat ion Details LastModified Time Tobacco Smoking Status Current Every Day Smoker HARMONY Bardales [facility] & [place] 04/12/2022 08:18:45 Do You Have An Advance Directive? No [email or web address] Information not available 05/13/2024 Are You Blind Or Do You Have Difficulty Seeing? No [email or web address] Information not available 05/13/2024 Is Blood Transfusion Acceptable In An Emergency? Yes [email or web address] Information not available 05/13/2024 What Is Your Level Of Caffeine Consumption? Moderate [email or web address] Information not available 05/13/2024 Are You Deaf Or Do You Have Serious Difficulty Hearing? No [email or web address] Information not available 05/13/2024 What Type Of Diet Are You Following? REGULAR [email or web address] Information not available 05/13/2024 Have There Been Any Changes To Your Family Or Social Situation? No [email or web address] Information no t available 05/13/2024 Do You Feel Safe At Home? Yes [email or web address] Information not available 05/13/2024 Do You Have A Medical Power Of Journeyman Carpenter? No [email or web address] Information not available 05/13/2024 What Is Your Current Pack Years? 30ormorepacky ears Information not available 04/12/2022 Do You Have Any Pets? No Information not available 05/13/2024 What Is Your Relationship Status? Single [email or web address] Information not available 05/13/2024 Do You Have Smoke And Carbon Monoxide Detectors In Your Home? Yes [email or web address] Information not available 05/13/2024 At What Age Did You Start Smoking Tobacco? 13 [email or web address] Information not available 04/12/2022 Are You Passively Exposed To Smoke? No [email or web address] Information no t available 05/13/2024 How Much Tobacco Do You Smoke? 1 PPD [email or web address] Information not available 04/12/2022 How Many Years Have You Smoked Tobacco? 33 [email or web address] Information not available 04/12/2022 Do You Have Difficulty Walking Or Climbing Stairs? No [email or web address] Information not available 05/13/2024 Sex: Male Functional Status Question Answer Note LastModified by Organizat ion Details LastModified Time Do you use any illicit or recreational drugs? No [email or web address] Information not available 04/12/2022 What is your level of alcohol consumption? None [email or web address] Information not available 04/12/2022 Are you currently employed? No [email or web address] Information not available 05/13/2024 Do you have transportation difficulties? No [email or web address] Information not available 05/13/2024 Are you able to walk independently without assistance or assistive devices? YESWOREST wasoker73 Information not available 05/13/2024 Do you have difficulty doing errands alone? No [email or web address] Information not available 05/13/2024 Are you able to care for yourself independently? Yes Information not available 05/13/2024 Do you have difficulty dressing, bathing, grooming, or toileting? No [email or web address] Information not available 05/13/2024 Mental Status Question Answer Note LastModified by Organizat ion Details LastModified Time Do you feel stressed (tense, restless, nervous, or anxious, or unable to sleep at night)? GH9531-8 [email or web address] Information not available 05/13/2024 Do you have difficulty concentrating, remembering or making decisions? No [email or web address] Information no t available 05/13/2024 Family History Nothing Reported. Medical History Condition Response COPD Y Anxiety Disorder Y High Cholesterol Y Hospitalizations Y Seizures/Epilepsy Y Hypertension Y Immunizations Vaccine Type Date Status Note Provider Nam e and Address Organization Details Recorded Time Influenza, split virus, quadrivalent, PF 02/29/2020 completed HARMONY Raymundo - [facility] & [place] 10/10/2022 13:18:42 Influenza, MDCK, quadrivalent, PF 04/12/2022 completed Dustin Quintero MD [address] [facility], [place], [address], [place] - [facility] [place] & [place] 04/12/2022 13:31:18 Past Encounters Encounter ID Performer Location Encounter Start Date Encounter Closed Date Diagnosis/Indication Diagnosis SNOMED-CT Code Diagnosis ICD10 Code Diagnosis IMO Codes Diagnosis Note [id number] Dustin Quintero MD [facility] [address] [facility] [place] [address] 04/12/2022 12:47:10 04/12/2022 13:15:35 Pulmonary emphysema 64883116 J43.9 Patient recommende d to continue with the use of Trelegy daily and use his Lni on a p.r.n. basis. Patient to call if there is any new symptoms. Dyspnea on exertion 6084 5006 R06.09 Patient recommende d to exercise as tolerated and will arrange for him to have Lin to use on a p.r.n. basis. Tobacco de pendence caused by cigarettes 3817493071 5228532 F17.210 Patient counseled lc posey to quit smoking and will continue follow this up. Administra tion of influenza vaccine 84950161 Z23 Will administer flu vaccine in the office today. [id number] Dustin Quintero MD [facility] [address] [facility] [place] [address] 10/10/2022 13:05:11 10/10/2022 13:38:01 Pulmonary emphysema 39037302 J43.9 Spirometry done in the office today showed very poor effort and unable to interpret the results and that was reviewed and discussed with the patient. Patient recommende d to continue with the use of Trelegy daily and use his Lin on a p.r.n. basis.Paula ent to call if there is any new symptoms. Dyspnea on exertion 6084 5006 R06.09 Patient recommende d to exercise as tolerated and will arrange for him to have Lin to use on a p.r.n. basis. Tobacco de pendence caused by cigarettes 7235952019 8085465 F17.210 Patient counseled lc posey to quit smoking and will continue follow this up. [id number] Gato Rutledge MD [facility] [address] [place] [address] 05/13/2024 13:40:22 05/13/2024 14:47:46 Chronic obstructive pulmonary disease 24438366 J44.9 RF albuterol and Trelegy. Needs referral to [facility]. Not sure when his last PFTs were. Also have no record of labs being done in the last year or so. Tobacco de pendence caused by cigarettes 5664974974 9094784 F17.210 still smoking half a pack a day. I did review a note from Dr. Quintero from October of 2022. Apparently was smoking about a half a pack a day at that point as well. Again counseled the need to quit which he knows he needs to do but is resistant to doing Health Concerns Section Related Observation LastModified by Organization Detai ls LastModified Time None Recorded Concern Status LastModified by Organization Details LastModified Time None Recorded Advance Directives Directive N: Payers Insurance Date Sequence Insurance Name Policy Number Policy Garcia Covered Member ID Garcia Member ID Guarantor Name 05/13/2024 1 [employer] (MEDICARE REPLACEMENT/ ADVANTAGE - PPO) Reuben Lang [id number] Reuben Lang 05/13/2024 2 [employer] [facility] (MEDICAID HMO) Reuben Lang [id number] Reuben Lang 05/13/2024 1 MEDICARE-AL (MEDICARE) Reuben Lang [id number] Reuben Lang 04/28/2024 2 [employer] [facility] (MEDICAID HMO) Reuben Lang [id number] Reuben Lang Notes Date Note Type Note Provider Name and Address Organization Details Recorded Time 04/12/2022 text/html Patient presents to the office today for follow-up visit. Patient states that he had worsening shortness of breath and dyspnea exertion few weeks ago and currently back to his baseline. He is using his Trelegy regularly and Lin about 2-3 times per day. He denies fever, chills or diaphoresis. No chest pain, angina or palpitation. No PND or orthopnea. Patient denies wheezing or hemoptysis. Patient denies significant change in his weight or appetite. Patient decreasing the amount of smoking at the present time due to his dyspnea. Dustin Quintero MD [address], [place], [address], [place] [facility] & [place] 04/12/2022 13:32:08 10/10/2022 text/html Patient presents to the office today for follow-up visit. Patient states that he is having shortness breath at rest and with exertion. He is using his Trelegy regularly and Lin about 2-3 times per day. He denies fever, chills or diaphoresis. No chest pain, angina or palpitation. No PND or orthopnea. Patient denies wheezing or hemoptysis. Patient denies significant change in his weight or appetite. Patient smoking about half pack per day still. Dustin Quintero MD [address], [place], [address], [facility] & [place] 10/10/2022 13:50:06 05/13/2024 text/html 48 yo WM presents to establish care. Last PCP was Dr. Ray. Is currently on disability x 3-4 years due to lung disease but does not know the name of the diagnosis. Use to see Dr. Quintero. Is in need of inhalers. Has been using Trelegy and albuterol MDI. Unfortunately he continues to smoke 1 ppd. Also on methadone. Gato Rutledge MD [address], [place], [address], [facility] & [place] 05/14/2024 06:39:44
--- OUTSIDE RECORDS SUMMARY | 2025-03-29 15:39 | XMS_ITS | Clinical Summary ---
Author Organization Healthcare Address [address] [place] [address] Care Team Providers Care Cocoa Room Operator Name Role Phone Pcp, No Primary [...] spacer 12 g 11 5 Active Tiotropium [place] Monohydrate (Spiriva Respimat) 2.5 MCG/ACT inhalerIndicatio ns:Asthma-COPD overlap syndrome (CMS/HCC) Inhale 2 puffs daily. 4 g 11 5 Active Active Problems No known active problems Encounters Date Type Department Care Team Description 01/13/2025 Telephone [facility] [address] [place] [address] Vanna Hoover CPhT 01/06/2025 Telephone [place] [facility] [address], [address] [place] [address] Dorys Mares from Last 3 [...] Screening 1973 [facility]-Medicare Annual Wellness (AWV) 1973 [facility]-Infant/Child/Adol SDOH Screenings 1973 [facility]- SDOH Screenings 1991 [...] 2018 [facility]-Zoster Vaccines (1 of 2) 2023 [id number] Vaccine (2023- season) 2025 [facility]-Influenza Vaccine (#1) [...] this topic Insurance [employer] MEDICARE Care Teams Cocoa Room Operator Relationship Specialty Start Date End Date Mark, [place] [address] PCP - General Family Medicine 06/21/22
--- OUTSIDE RECORDS SUMMARY | 2025-03-29 15:39 | XMS_ITS | Encounter Summary ---
Author Organization [facility] Address [address] [place] [address] Care Team Providers Care Reception Specialist Name Role Phone Pcp, No Primary Care Provider Unavailabl e Reason for Referral * Consultation (Routine) - Closed Specialty Diagnoses / Procedures Referred By Contac t Referred To Contact Pulmonary Disease / Pulmonology Diagnoses Chronic obstructive pulmonary disease, unspecified COPD type (CMS/HCC) Gato Rutledge MD [address] [address] [address] Phone: tel: fax: Referral ID Status Reason Start Date Expiration Date V isits Requested Visits Authorized [id number] Closed Specialty Services Required 05/14/2024 11/13/2025 1 1 Encounter Details Date Type Department Care Team (Late st Contact Info) Description 05/14/2024 [facility] [address] [place] [address] Gato Rutledge MD [address] [phone] Chronic obstructive pulmonary disease, unspecified COPD type [...] Primary documented in this encounter Care Teams Reception Specialist Relationship Specialty Start Date End Date Pcp, [place] [address] PCP - General Family Medicine 06/21/22 documented as of this encounter
--- OUTSIDE RECORDS SUMMARY | 2025-03-29 15:39 | XMS_ITS | Clinical Summary ---
Author Organization [facility] Address [address] [place] [address] Phone Care Team Providers Care Slab Off Mill Tender Name Role Phone Unavailable Primary Care Provider [...] Positive for Methadone NO CONTROLLED DRUGS FROM [facility] Problem Noted Date Diagnosed Date Mild [...] Date Smoking Tobacco: Every Day Cigarettes 1 28.8 Started: 06/13/1996 Smokeless Tobacco: Never Tobacco Cessation:Ready [...] Zoster (1 of 2) 2023 COVID-19 Vaccine (1 - 2024-2 6 season) 2025 Influenza Vaccine (#1) 2025 7 [...] Free Lifestyle No Fariha Lang RN Insurance Precognate [facility] [address] Advance Directives For more information, please contact: [phone] * Full Code (Latest Code Status on File) Date Activated Date Inactivated Comments 06/14/2016 3:44 PM 06/14/2016 9:19 PM
[2025-03-29 16:08] LABS: Albumin Level 2.9 g/dl (3.5-5.0); Chloride 99 mmol/L (98-107); Potassium 3.8 mmoL/L (3.5-5.1); Sodium 133 mmol/L (136-145)
[2025-03-29 16:11] LABS: Alanine Aminotransferase 18 U/L (12-78); Albumin/Globulin Ratio 0.7 (1.1-1.8); Alkaline Phosphatase 99 U/L (38-126); Anion Gap 7.8 mEq/L (5-15); Aspartate Amino Transferase 30 U/L (17-59); Bilirubin,Total 0.3 mg/dl (0.2-1.3); Blood Urea Nitrogen 5 mg/dl (9-20); Calcium 8.5 mg/dl (8.4-10.2); Carbon Dioxide 30 mmol/L (22.0-30.0); Creatinine,Serum 0.80 mg/dl (0.66-1.25); Estimated Glomerular Filt Rate 102 ml/min (>60); GFR (African American) 123 ML/MIN (>60); Globulin 4.0 g/dL (1.3-3.2); Glucose 86 mg/dl (74-100); Total Protein,Serum 6.9 g/dl (6.3-8.2)
== END 2025-03-29 23:59 | disposition home or self-care (01) ==
PROVIDERS: PCP Nurse Practitioner Family; Visit Provider Internal Medicine Pulmonary Disease
DX: A31.0 Pulmonary mycobacterial infection (principal); J43.9 Emphysema, unspecified
CPT/HCPCS: 36415; 80053; 85025

== ENCOUNTER 2025-06-02 12:50 | Outpatient (CLI) | payer MEDICARE, SELFPAY ==
--- OUTSIDE RECORDS SUMMARY | 2025-06-02 12:52 | XMS_ITS | Encounter Summary ---
Author Organization [facility] Address [address] [place] [address] Care Team Providers Care Gift Basket Packer Name Role Phone Pcp, No Primary Care Provider Unavailabl e Reason for Referral * Consultation (Routine) - Closed Specialty Diagnoses / Procedures Referred By Contac t Referred To Contact Pulmonary Disease / Pulmonology Diagnoses Chronic obstructive pulmonary disease, unspecified COPD type (CMS/HCC) Gato Rutledge MD [address] [address] Phone: tel: fax: Referral ID Status Reason Start Date Expiration Date V isits Requested Visits Authorized [id number] Closed Specialty Services Required 05/14/2024 11/13/2025 1 1 Encounter Details Date Type Department Care Team (Late st Contact Info) Description 05/14/2024 Community [facility] [address] [place] [address] Gato Rutledge MD [address] [phone] Chronic obstructive pulmonary disease, unspecified COPD type [...] Primary documented in this encounter Care Teams Gift Basket Packer Relationship Specialty Start Date End Date Pcp, [place] [address] PCP - General Family Medicine 06/21/22 documented as of this encounter
--- OUTSIDE RECORDS SUMMARY | 2025-06-02 12:52 | XMS_ITS | Clinical Summary ---
Author Organization [facility] Address [address] [place] [address] Care Team Providers Care Spindle Frame Carver Name Role Phone Pcp, No Primary Care [...] spacer 12 g 11 5 Active Tiotropium [place] Monohydrate (Spiriva Respimat) 2.5 MCG/ACT inhalerIndicatio ns:Asthma-COPD [...] 2018 [facility]-Zoster Vaccines (1 of 2) 2023 [id number] Vaccine (1 - season) 2025 [facility]-Influenza Vaccine (#1) 02/01/202502/28, 06/13/2016 [facility]-Depression Screening 08/25/2025 025, 08/25/2024 HPV Vaccines (No Doses Required) Completed [facility]-HIB Vaccines Aged Out No longer e [...] this topic Insurance [employer] MEDICARE Care Teams Spindle Frame Carver Relationship Specialty Start Date [place] [address] PCP - General Family Medicine 06/21/22
--- OUTSIDE RECORDS SUMMARY | 2025-06-02 12:52 | XMS_ITS | Clinical Summary ---
Author Organization [facility] Address [address] [place] [address] Phone Care Team Providers Care Power Generating Plant Operator Name Role Phone Unavailable Primary Care [...] Positive for Methadone NO CONTROLLED DRUGS FROM [facility] Problem Noted Date Diagnosed Date Mild methadone [...] Date Smoking Tobacco: Every Day Cigarettes 1 29 Started: 06/13/1996 Smokeless Tobacco: Never Tobacco Cessation:Ready [...] Zoster (1 of 2) 2023 COVID-19 Vaccine ( - 2024-2 6 season) 2025 Influenza Vaccine [...] Free Lifestyle No Fariha Lang RN Insurance [place] [address] Advance Directives For more information, please contact: [phone] * Full Code (Latest Code Status on File) Date Activated Date Inactivated Comments 06/14/2016 3:44 PM 06/14/2016 9:19 PM
--- NOTE | 2025-06-02 13:00 | US_ITS ---
FINAL REPORT TECHNIQUE: Sonographic images of the right upper quadrant were obtained. CLINICAL HISTORY: RUQ pain COMPARISON: None FINDINGS: PANCREAS: Obscured. LIVER: Homogeneous. No focal hepatic lesion. The portal vein is patent. GALLBLADDER: No gallstones. No gallbladder wall thickening or pericholecystic fluid. COMMON DUCT: 5 mm. Normal for age. RIGHT KIDNEY: The right kidney measures 9.7 cm. There is no hydronephrosis, mass, or stone. FREE FLUID: None. IMPRESSION: Unremarkable ultrasound of the right upper quadrant. Reviewed, Interpreted and Dictated by Rhonda Bernal MD Transcribed by Elizabeth Ngo Authenticated and [facility]
--- NOTE | 2025-06-02 13:30 | CT_ITS ---
FINAL REPORT TECHNIQUE: Thin section axial images were obtained from the lung apices through the upper abdomen without contrast. This study was performed with techniques to keep radiation doses as low as reasonably achievable (ALARA). Individualized dose reduction techniques using automated exposure control or adjustment of mA and/or kV according to the patient's size were employed. CLINICAL HISTORY: Lung nodules COMPARISON: 12/17/2024 FINDINGS: There is no mediastinal, hilar, or axillary lymphadenopathy. No pleural or pericardial effusion. Emphysematous change is noted. The previously seen left upper lobe pneumonia has resolved. Within the medial left upper lobe, possibly previously obscured by the pneumonia, is a 20 mm nodule with some central cavitation well seen on series 2, image 25. The right upper lobe cavity measures 21 mm and was 21 mm. Nodular density along the anterior aspect of this cavity has increased in size now measuring 15 x 10 mm and was 11 x 7 mm. There is a 2nd right upper lobe nodule on series 2, image 29 measuring 13 mm and previously measured 8 mm. Cavitary nodule in the posterior medial right upper lobe on series 2, image 34 appears unchanged. There is new subpleural ground-glass opacity in the lingula which could be infectious or inflammatory.. Limited, unenhanced evaluation of the upper abdomen is without acute abnormality. There is no acute osseous abnormality. IMPRESSION: Left upper lobe nodule, possibly obscured on the previous exam by pneumonia, could be infectious, inflammatory, or neoplastic. Consider PET-CT. Several cavitary lesions in the right upper lobe are similar. However, the solid right upper lobe nodules have increased in size and could also be infectious, inflammatory, or neoplastic and also best evaluated with PET-CT. Severe emphysema. Reviewed, Interpreted and Dictated by Rhonda Bernal MD Transcribed by Tea Nathan Authenticated and [facility]
== END 2025-06-02 23:59 | disposition home or self-care (01) ==
LOC: RAD 12:50
PROVIDERS: PCP Nurse Practitioner Family; Visit Provider Internal Medicine Pulmonary Disease
DX: R91.8 Other nonspecific abnormal finding of lung field (principal); R10.11 Right upper quadrant pain; J43.9 Emphysema, unspecified
CPT/HCPCS: 71250; 76705